=== PATIENT | male | born 1955 | race Caucasian/White ===

== ENCOUNTER → 2021-03-13 12:23 | Outpatient (BNVA) | payer MEDICARE, MEDICAID, SELFPAY | PROVIDERS: PCP Internal Medicine; Visit Provider Nurse Practitioner Gerontology | DX: E89.0 Postprocedural hypothyroidism (principal) | CPT/HCPCS: 99202 ==

== ENCOUNTER 2022-08-06 14:18 | Outpatient (REF) | payer MEDICARE, MEDICAID, SELFPAY ==
--- NOTE | ~2022-08-06 | US_ITS ---
EXAMINATION: US SCROTUM CLINICAL INFORMATION: Left testicular pain. COMPARISON: None TECHNIQUE: A sonogram of the scrotum was performed assessing callahan-scale appearance and color Doppler flow. Spectral Doppler analysis of the arterial and venous flow were performed in the testes bilaterally. FINDINGS: RIGHT: Right testicle measures 5.03 x 2.35 x 3.76 cm, volume 23.3 mL. No focal testicular parenchymal lesions are visualized. Spectral Doppler analysis of the arterial and venous flow is normal in the right testis. 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 In the right epididymal head there is a complex cyst measuring 0.52 x 0.42 x 0.46 cm. The epididymal head is otherwise unremarkable. There is a right small hydrocele and varicocele present. Right epididymal Doppler flow is normal. LEFT: Left testicle measures 5.80 x 2.30 x 3.59 cm, volume 25.1 mL. No focal testicular parenchymal lesions are visualized. Spectral Doppler analysis of the arterial and venous flow is normal in the left testis. There is mild ectasia of the Rete testes. Left epididymal head is normal in size. There is small left hydrocele and a varicocele. The varicocele appears more prominent bilateral right side. Left epididymal Doppler flow is normal. US/US scrotum IMPRESSION: Bilateral small hydroceles and varicoceles. Right epididymal head complex cyst. 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 Normal arterial Doppler flow seen to testes and epididymides.
== END 2022-08-06 14:19 | disposition home or self-care (01) ==
LOC: HO.HMGCX 14:18
PROVIDERS: PCP Internal Medicine; Visit Provider Internal Medicine
DX: N50.812 Left testicular pain (principal)
CPT/HCPCS: 76870

== ENCOUNTER → 2022-08-28 12:55 | Outpatient (BNVA) | payer MEDICARE, MEDICAID, SELFPAY | PROVIDERS: PCP Internal Medicine; Visit Provider Physician Assistant | DX: Z12.11 Encounter for screening for malignant neoplasm of colon (principal) | CPT/HCPCS: 99202 ==

== ENCOUNTER → 2022-12-11 14:55 | Outpatient (BNVA) | payer MEDICARE, MEDICAID, SELFPAY | PROVIDERS: PCP Internal Medicine; Visit Provider Nurse Practitioner Family | DX: I86.1 Scrotal varices (principal); N43.3 Hydrocele, unspecified; R35.0 Frequency of micturition | CPT/HCPCS: 99202 ==

== ENCOUNTER 2023-03-31 09:25 | Day surgery (SDC) | payer MEDICARE, MEDICAID, SELFPAY ==
--- NOTE | 2023-03-30 11:02 | P.CONAN_ITS ---
Documented by User: Sobia Tate NP 03/30/23 11:02 HPI - Anesthesia Eval Consult details Narrative: 68yo M for Colonoscopy PMFSH Active Problems Active Problems: All Active Problems (Updated 03/27/23 @ 13:02 by Shira Samaniego RN) Encounter for screening colonoscopy (Acute) Varicocele (Acute) Bilateral hydrocele (Acute) Urinary frequency (Acute) Postablative hypothyroidism (Acute) Past Medical History Medical History Anxiety and depression Back pain Chronic viral hepatitis C History of heroin abuse Postablative hypothyroidism Family History Family History Father No problems noted. Mother Emphysema lung Surgical History Surgical History Hx of Achilles tendon repair Hx of arthroscopy Hx of cervical spine surgery Hx of colonoscopy Hx of eye surgery Hx of hernia repair Hx of inguinal hernia surgery Hx of laparoscopy Social History Social History Household Members: None Alcohol intake: never Patient Tobacco Use Status: Never used Tobacco Use of substances other than those prescribed or required for medical reasons: No Substance Use Type: Heroin Are you DNR?: No Advance Directives: No Advance Directives Information Provided: Yes Current occupational status: retired [employer] Allergies Allergy/AdvReac Type Severity Reaction Status Date / Time No Known Allergies Allergy Verified 03/31/23 09:58 Home Medications Medication Instructions Recorded Confirmed Last Taken Type cholecalciferol (vitamin D3) 25 25 mcg PO DAILY 03/13/21 03/27/23 Unknown History mcg (1,000 unit) capsule levothyroxine 100 mcg tablet 100 mcg PO DAILY 03/13/21 03/27/23 Unknown History multivitamin 1 tab PO DAILY 03/13/21 03/27/23 Unknown History omega-3 fatty acids 500 mg capsule 500 mg PO DAILY 03/13/21 03/27/23 Unknown History vitamin B complex 1 tab PO DAILY 03/13/21 03/27/23 Unknown History blood pressure test kit-large #1 ea 08/28/22 Unknown History Exam Exam Date and Time: March 30, 2023 110 Assessment and Plan Assessment Anesthesia Assessment: Chart Reviewed Documented by User: Quinton Rodriguez MD 03/31/23 10:16 PMFSH Past Medical History Medical History Anxiety and depression Back pain Chronic viral hepatitis C History of heroin abuse Postablative hypothyroidism Family History Family History Father No problems noted. Mother Emphysema lung Family history of problems with anesthesia: No Surgical History Surgical History Hx of Achilles tendon repair Hx of arthroscopy Hx of cervical spine surgery Hx of colonoscopy Hx of eye surgery Hx of hernia repair Hx of inguinal hernia surgery Hx of laparoscopy History of Problems with Anesthesia: No Social History Social History Household Members: None Alcohol intake: never Patient Tobacco Use Status: Never used Tobacco Use of substances other than those prescribed or required for medical reasons: No Substance Use Type: Heroin Are you DNR?: No Advance Directives: No Advance Directives Information Provided: Yes Current occupational status: retired Meds Allergies Allergy/AdvReac Type Severity Reaction Status Date / Time No Known Allergies Allergy Verified 03/31/23 09:58 Home Medications Medication Instructions Recorded Confirmed Last Taken Type cholecalciferol (vitamin D3) 25 25 mcg PO DAILY 03/13/21 03/27/23 Unknown History mcg (1,000 unit) capsule levothyroxine 100 mcg tablet 100 mcg PO DAILY 03/13/21 03/27/23 Unknown History multivitamin 1 tab PO DAILY 03/13/21 03/27/23 Unknown History omega-3 fatty acids 500 mg capsule 500 mg PO DAILY 03/13/21 03/27/23 Unknown History vitamin B complex 1 tab PO DAILY 03/13/21 03/27/23 Unknown History blood pressure test kit-large #1 ea 08/28/22 Unknown History Exam Airway Mallampati Class: II TM Dist: >3cm Neck ROM: Full Denture: Upper Heart: [id number] Lungs: cta b/l Assessment and Plan Assessment Anesthesia Assessment: Anesthesia Plan Discussed Final Anesthetic Review Family History of Problems with Anesthesia: No History of Problems with Anesthesia: No NPO: Yes ASA Class: III Final Preanesthetic Review: No Changes in Pt Med Stat, Meds/Allgs Chart Reviewed, Consent Obtained/Reviewed and Anes Risks/Benef Reviewed Patient Risk: Intermediate Procedure Risk: Intermediate Assessment/Block/Sedation in SS: Assess/Block/Sedation-SS Anesthetic Plan Anesthetic Plan: MAC: and Agree w/ Assess. and Plan Disposition: Standard PACU
[2023-03-31 10:01] VITALS: BP 135/81; PULSE 63; RESP 16; TEMP 36.8; O2SAT 97; BMI 22.9
--- NOTE | 2023-03-31 10:09 | MHC.SHP ---
Pre-Procedural Eval Section A Date of Service: 03/31/23 Section B Chief Complaint: Encounter for screening for malignant neoplasm Relevant Family History (Specify if Yes): No Relevant Social History: None Present Medications: see Short Stay Collaborative assessment Medical History: Significant History (Anxiety and depression Back pain Chronic viral hepatitis C History of heroin abuse Postablative hypothyroidism) History of Previous Operations: Relevant previous surgery/procedure and date(s) (Hx of Achilles tendon repair Hx of arthroscopy Hx of cervical spine surgery Hx of colonoscopy Hx of eye surgery Hx of hernia repair Hx of inguinal hernia surgery Hx of laparoscopy) Allergies: Allergies Allergy/AdvReac Type Severity Reaction Status Date / Time No Known Allergies Allergy Verified 03/31/23 09:58 Review of Systems Sugical H&P ROS: Negative: Constitution, Cardiovascular, Respiratory, Neurological, Psychiatric, Hem-Onc, Allergic/Immunologic, Gastrointestinal, Genitourinary, Musculoskeletal, Integumentary, Endocrine and Eyes/Ears/Nose/Throat Exam Surgical H&P Exam: Normal: HEENT, Normal: Heart, Normal: Lungs, Normal: Extremities, Normal: Abdomen, Normal: Skin and Normal: Neurological Plan Diagnosis/Plan: Unchanged I have reviewed the history and physical and performed a pertinent physical examination on my patient. No changes have occurred unless specified. Time Spent With Patient Time: Total time managing care of this patient today ____ minutes.
[2023-03-31] MEDS: Lactated Ringers 1,000 ML 100 ML IVCONT (10:17)
--- NOTE | 2023-03-31 10:46 | W.PM.OPN ---
Operative Note Operative Note Date of Service: 03/31/23 Narrative: Operative Information Procedure Description: Colonoscopy Indication: screening Anesthesia: MAC COLONOSCOPY Instrument: Olympus variable stiffness pediatric scope 190L Colonoscopy Monitoring: Vital signs and clinical assessment, continuous EKG monitoring, Pulse oximetry, Carbon Dioxide monitoring and blood pressure monitoring were done throughout the procedure. Colon withdrawal time was 7 minutes. Procedure: The patient was placed in the left lateral decubitis position and pre-procedure medications were administered. After a digital rectal examination of the ano-rectum, the video colonoscope was inserted into the rectum and advanced through the colon to the cecum/TI. The colonoscope was slowly withdrawn in a retrograde panoramic fashion and the colon mucosa was carefully examined including a retroflexed view of the rectum. Findings and interventions are described below. Procedure Difficulty: moderate due to trotuous colon--pressure applied Findings: Terminal Ileum-normal Cecum:normal Ascending Colon: normal Transverse Colon -normal Descending Colon:normal Sigmoid Colon: normal Rectum: Retroflexion with medium sized internal hemorrhoids, grade I Anorectum - normal Colon preparation: Perris Bowel Preparation Scale Right colon; 1-2 Transverse colon: 1-2 Left colon; 1 (0 = Unprepared colon segment with mucosa not seen due to solid stool that cannot be cleared. 1 = Portion of mucosa of the colon segment seen, but other areas of the colon segment not well seen due to staining, residual stool and/or opaque liquid. 2 = Minor amount of residual staining, small fragments of stool and/or opaque liquid, but mucosa of colon segment seen well. 3 = Entire mucosa of colon segment seen well with no residual staining, small fragments of stool or opaque liquid) Impression and Post Procedure Diagnosis: fair to poor prep internal hemorrhoids Plan: High fiber diet leaflet Avoid straining at stool, epsom salts and sitz bath, anusol supps or cream Repeat Colonoscopy in 12 months or earlier if clinically indicated, review prep with him again Above findings were reviewed with the patient and relevant handouts were provided if indicated.
[2023-03-31 10:52] VITALS: BP 88/47; PULSE 54; RESP 16; TEMP 36.1; O2SAT 96
[2023-03-31 11:07] VITALS: BP 108/68; PULSE 59; RESP 16; TEMP 36.6; O2SAT 97
== END 2023-03-31 11:50 | disposition home or self-care (01) ==
PROVIDERS: PCP Internal Medicine; Visit Provider Internal Medicine Gastroenterology
PROC: 0DJD8ZZ Inspection of Lower Intestinal Tract, Via Natural or Artificial Opening Endoscopic (ICD-10-PCS; CPT 45378; principal; 2023-03-31 11:00)
DX: Z12.11 Encounter for screening for malignant neoplasm of colon (principal); E89.0 Postprocedural hypothyroidism; B18.2 Chronic viral hepatitis C; Z79.899 Other long term (current) drug therapy; Z98.890 Other specified postprocedural states; F11.11 Opioid abuse, in remission
CPT/HCPCS: G0121

== ENCOUNTER 2023-09-04 09:52 | Outpatient (REF) | payer MEDICARE, MEDICAID, SELFPAY ==
[2023-09-04 11:15] LABS: MANUAL DIFF FLAG NO
[2023-09-04 11:34] LABS: Basophils Percent Auto 0.4 % (0-2); Hematocrit 42.8 % (42.0-52.0); Hemoglobin 14.2 g/dl (14.0-18.0); Imm Gran Abs Auto 0.08 X10*3/uL (0.00-0.03); Imm Gran Pct Auto 1.5 % (0.0-0.4); Lymphocytes Absolute Auto 2.1 X10*3/uL (1.2-4.9); Lymphocytes Percent Auto 38.3 % (20-40); Mean Corpuscular HGB Conc 33.2 g/dl (31.0-36.0); Mean Corpuscular Hemoglobin 29.3 pg (27.0-33.0); Mean Corpuscular Volume 88.2 fL (80.0-98.0); Mean Platelet Volume 9.5 fL (9.4-12.4); Monocytes Absolute Auto 0.5 X10*3/uL (0.1-1.2); Monocytes Percent Auto 9.7 % (2-11); Neutrophils Absolute Auto 2.8 x10*3/uL (2.0-8.3); Neutrophils Percent Auto 50.1 % (45-73); Platelet Count 277 X10*3/uL (160-400); Red Blood Count 4.85 X10*6/uL (4.60-5.80); Red Cell Distribution Width 13.3 % (11.0-16.0); White Blood Count 5.5 X10*3/uL (4.8-10.8)
[2023-09-04 12:16] LABS: Alanine Aminotransferase 26 U/L (0-40); Albumin Level 4.5 g/dL (3.5-5.0); Alkaline Phosphatase 62 U/L (39-117); Anion Gap 11 (12-20); Aspartate Amino Transferase 31 U/L (5-37); Bilirubin Direct 0.2 mg/dL (0.0-0.5); Bilirubin Total 0.6 mg/dL (0.0-1.0); Blood Urea Nitrogen 14 mg/dL (9-16); Calcium 9.7 mg/dL (8.4-10.2); Carbon Dioxide 29 mmol/L (22-29); Chloride 108 mmol/L (96-108); Cholesterol 199 mg/dL (<200); Estimated Glomerular Filt Rate > 60; Glucose Random 101 mg/dL (60-115); HDL Cholesterol 54 mg/dL (>40); LDL Cholesterol Calculated 127 mg/dL (<100); Potassium 5.1 mmol/L (3.3-5.1); Sodium 143 mmol/L (135-145); Total Protein 7.2 g/dL (6.5-8.0); Triglycerides 93 mg/dL (<150)
[2023-09-04 12:51] LABS: Vitamin D 25-OH Total 62.1 ng/mL (>30)
[2023-09-07 11:43] LABS: Free Prostate Spec Ag 0.4 ng/mL; Percent Free Prostate Spec Ag 22 % (calc) (>25); Prostate Specific Ag Total 1.8 ng/mL (< OR = 4.0)
== END 2023-09-04 09:53 | disposition home or self-care (01) ==
LOC: HO.HHCL 09:52
PROVIDERS: Visit Provider Internal Medicine
DX: Z00.00 Encounter for general adult medical examination without abnormal findings (principal); R35.0 Frequency of micturition; E78.5 Hyperlipidemia, unspecified
CPT/HCPCS: 36415; 80048; 80061; 80076; 82306; 84154; 85025

== ENCOUNTER 2023-10-14 13:38 | Outpatient (AMB) | payer MEDICARE, MEDICAID, SELFPAY ==
--- NOTE | 2023-10-14 13:41 | A.OFFVIS_ITS ---
Intake Intake Visit Reasons: Elevated PSA Intake Note: Patient present for bilateral varicoceles/elevated psa (psa 1.8) Urology Medications: none Blood Thinners: none Garment Form Assembler Required: No Accompanied by: Self / Same As Patient Allergies No Known Allergies Allergy (Verified 10/15/23 13:38) Medication List - Last Reconciled 10/15/23 by GLORIA No blood pressure test kit-large As directed cholecalciferol (vitamin D3) 25 mcg PO DAILY levothyroxine 100 mcg PO DAILY multivitamin 1 tab PO DAILY omega-3 fatty acids 500 mg PO DAILY pravastatin 20 mg PO DAILY vitamin B complex 1 tab PO DAILY HPI HPI Comments History of Present Illness Details Michael Dasilva is a pleasant 67-year-old male patient of Dr. Silvestre Talamantes. He has a past medical history of back pain, anxiety, depression, chronic hep C, history of heroin abuse in remission, and hypothyroidism. He presents to the office today for elevated % free PSA. Of note, patient was seen approximately 10 months ago for bilateral varicoceles at which time recommendations were made for p.r.n. follow-up. However, patient reports having had PSA drawn with PCP and noted to have an elevated % free PSA. Labs are as follows: 03/13--PSA 1.3 03/13--testosterone 678 09/17--PSA 1.8 % free PSA 22% Discussed at length potential causes for % free PSA elevation. Discussed obtaining retroperitoneal ultrasound for further assessment evaluation versus surveillance monitoring. When asked he denies any bothersome urinary issues or concerns. He denies urinary urgency, urinary frequency, incontinence, nocturia, hematuria, dysuria, foul smelling urine, changes to urinary stream, flank pain, fever, and or chills. He is happy with his current voiding parameters. SALLY offered however deferred. [facility] Medical History Back pain Anxiety and depression Chronic viral hepatitis C History of heroin abuse Postablative hypothyroidism Surgical History Hx of hernia repair Hx of colonoscopy Hx of laparoscopy Hx of eye surgery Hx of Achilles tendon repair Hx of cervical spine surgery Hx of arthroscopy Hx of inguinal hernia surgery Family History Father No problems noted. Mother Emphysema lung Social History Household Members: None Alcohol intake: never Patient Tobacco Use Status: Never used Tobacco Substance Use Type: Heroin Current occupational status: retired Review of Systems Const All systems reviewed & are unremarkable except as noted in HPI and below Reports as per HPI Eyes Reports no additional complaints ENT Reports no additional complaints Card Reports no additional complaints Resp Reports no additional complaints GI Reports as per HPI Reports as per HPI Musc Denies no additional complaints Neuro Reports no additional complaints Psych Reports as per HPI Endo Reports as per HPI Ramesh/Lymph Reports no additional complaints Aller/Immun Reports no additional complaints Physical Exam Const General: cooperative, healthy appearing, comfortable, no acute distress, well developed, alert and awake Nutritional Appearance: average body habitus Orientation/consciousness: patient oriented x3 Limitations: no limitations HEENT Head: Yes normal to inspection, Yes normocephalic and Yes atraumatic Ears: hearing grossly normal bilaterally Eyes General: appearance normal, both eyes and all related structures Neck Neck: Yes normal visual inspection and Yes trachea midline Chest Chest palpation & inspection: normal inspection of the chest Resp Effort & Inspection: normal respiratory effort and able to speak in complete sentences Cardio Rate: regular rate GI Inspection: Yes normal to inspection General: Yes no CVA tenderness Back/Spine/Pelvis Back: no CVA tenderness Skin General skin exam: no rashes or lesions noted Neuro General: patient oriented x3 Extrem General: Yes normal to inspection Psych Appearance: grossly normal and well kempt Mental Status: mental status grossly normal Speech and movement: Normal speech and movement present and Clear speech present Affect: normal affect Attitude: cooperative Thought process: Normal thought process present Thought content: Normal thought content present Insight: Fair insight present (Psych) Judgement: Fair judgement present (Psych) Results AMB Urinalysis, Automated UA Leukoctes 0 Soco/uL Last Edit by Stacia Bravo on 10/14/23 14:13 UA Nitrite Negative Last Edit by Stacai Bravo on 10/14/23 14:13 UA Urobilinogen 0.2 mg/dL Last Edit by Stacia Bravo on 10/14/23 14:13 UA Protein 0 mg/dL Last Edit by Stacia Bravo on 10/14/23 14:13 UA pH 6.0 Last Edit by Stacia Bravo on 10/14/23 14:13 UA Blood 10 Dereje/uL Last Edit by Stacia Hatchprem on 10/14/23 14:13 UA Specific Stella 1.015 Last Edit by Noehermanvahe Hatchprem on 10/14/23 14:13 UA Ketone Negative Last Edit by Noehermanvahe Hatchprem on 10/14/23 14:13 UA Bilirubin 0 mg/dL Last Edit by Stacia Hatchprem on 10/14/23 14:13 UA Glucose 0 mg/dL Last Edit by Stacia Mamieprem on 10/14/23 14:13 Results Reviewed Results Reviewed: Laboratory Last Values Urine pH (Auto) 6.0 10/14/23 13:46 Specific Stella (Auto) 1.015 10/14/23 13:46 Urine Protein (Auto) 0 mg/dL 10/14/23 13:46 Glucose (UA)(Auto) 0 mg/dL 10/14/23 13:46 Urine Ketones (Auto) Negative 10/14/23 13:46 Urine Blood (Auto) 10 Dereje/uL 10/14/23 13:46 Urine Nitrite (Auto) Negative 10/14/23 13:46 Urine Bilirubin (Auto) 0 mg/dL 10/14/23 13:46 Urine Urobilinogen (Auto) 0.2 mg/dL 10/14/23 13:46 Leukocyte Esterase (Auto) 0 Soco/uL 10/14/23 13:46 Assessment & Plan Assessment & Plan (1) Elevated PSA: Code(s): R97.20 - Elevated prostate specific antigen [PSA] Plan In office urinalysis results reviewed with the patient today; as noted above. PSA results reviewed with the patient today; as noted above. Patient denies any bothersome urinary issues or concerns at this time. Discussed at length potential causes for elevated % free PSA. Will obtain retroperitoneal ultrasound for further assessment evaluation. Follow-up in 1 month with imaging to be completed prior; or sooner with any issues, concerns, and or questions. Orders: Orders AMB Urinalysis Automated 10/14/23 Z13.9 - Encounter for screening, unspecified US retroperitoneal comp 10/14/23 R35.0 - Frequency of micturition Patient Instructions: The patient had an opportunity to ask questions regarding the treatment plan. All questions were answered. Physical exam, labs, and imaging were discussed and reviewed in detail. As well as risks, benefits, and discussion of treatment choices. No major barriers to understanding were identified. The patient expressed understanding and agreement with the above treatment plan. The patient was made aware they should contact our office by phone for worsening of their current condition, the appearance of new symptoms, or with any questions or concerns. Compliance is encouraged with any medications and follow up testing that is ordered. It is a privilege to be allowed the opportunity to participate in? your urological care.? Again, if you have any questions or concerns If you have any questions or concerns please do not hesitate to contact me. The office is [phone]. This note is constructed using voice recognition software. While every effort has been made to ensure accuracy towel distributor errors may have been included. Yours sincerely, GLORIA No Coding Level of Care Code Est Pt Level 3 (79427) Diagnoses Elevated PSA R97.20
== END 2023-10-14 14:35 | disposition home or self-care (01) ==
PROVIDERS: PCP Internal Medicine; Visit Provider Nurse Practitioner Family
DX: R97.20 Elevated prostate specific antigen [PSA] (principal)
CPT/HCPCS: 99213

== ENCOUNTER → 2023-10-14 13:40 | Outpatient (BNVA) | payer MEDICARE, MEDICAID, SELFPAY | PROVIDERS: PCP Internal Medicine; Visit Provider Nurse Practitioner Family | DX: R97.20 Elevated prostate specific antigen [PSA] (principal) | CPT/HCPCS: 81003; 99212 ==

== ENCOUNTER 2023-10-25 11:33 | Emergency (ER) | payer MEDICARE, MEDICAID, SELFPAY ==
--- NOTE | ~2023-10-25 | CT_ITS ---
EXAMINATION: CT head/brain wo IV con CLINICAL INFORMATION: Reason for Exam syncope/fall last night COMPARISON: None. TECHNIQUE: Contiguous axial imaging was performed from the skull base to vertex without intravenous contrast. Sagittal and coronal reformatted images were obtained. This CT examination was performed using dose optimization techniques as appropriate, variously including the following: * Automated exposure control * Adjustment of mA and/or kV according to patient size (this includes techniques or standardized protocols for targeted exams where dose is matched to indication/reason for exam; i.e. extremities or head) Use of iterative reconstruction technique DLP: 652 mGy-cm FINDINGS: No acute osseous or soft tissue abnormality. Chronic appearing left lamina papyracea fracture deformity. The mastoid air cells and visualized portions of the paranasal sinuses are well aerated. There is no evidence of acute intracranial hemorrhage or territorial infarction. No abnormal mass effect or midline shift is seen. Kwan to white matter differentiation is well preserved. No extra-axial fluid collections are identified. No hydrocephalus. Proportional prominence of the ventricles and sulcal spaces is consistent with mild volume loss. Patchy periventricular and deep white matter hypoattenuation is consistent with mild small vessel ischemic changes. CT/CT head/brain wo IV con IMPRESSION: No acute intracranial abnormality including hemorrhage, mass effect, hydrocephalus, or acute territorial edematous infarction.
--- NOTE | ~2023-10-25 | XR_ITS ---
EXAMINATION: XR FOOT, RIGHT CLINICAL INFORMATION: Status post fall. Syncope last night. COMPARISON: Report of right foot x-rays of 10/19/2014. Images are not available for comparison at this time. TECHNIQUE: AP, lateral, and oblique views of the right foot. FINDINGS: There is diffuse osteopenia. No focal erosion noted. No evidence of acute fracture or dislocation. Vascular calcifications are seen. No evidence of radiopaque foreign body or soft tissue air. No significant degenerative or arthritic changes are noted in the right foot. XR/XR foot RT min 3V IMPRESSION: No evidence of acute fracture or dislocation in the right foot.
[2023-10-25 11:48] VITALS: BP 136/70; PULSE 60; RESP 18; TEMP 36.2; O2SAT 99; BMI 22.4
--- NOTE | 2023-10-25 11:49 | ED.GENADULT ---
HPI - General Adult General Chief complaint: Syncope Stated complaint: R foot injury Time Seen by Provider: 10/25/23 20:13 Source: patient Mode of arrival: ambulatory Limitations: no limitations History of Present Illness HPI narrative: Patient is a 68 year old assigned male at with a history of hypotension, anxiety, and chronic hep C presenting to the emergency department today with right foot pain and an episode of syncope. Patient states that he was going to the bathroom, got up too quickly, and passed out, twisting his right foot. Patient denies any head strike. Patient denies any dizziness, lightheadedness, abdominal pain, nausea, vomiting, fever, chills, blurry vision, double vision, loss of vision, chest pain, difficulty breathing, shortness of breath, back pain, night sweats, pain with urination, increased urinary frequency, increased urinary urgency, blood in his urine or stool, bowel incontinence, bladder incontinence, bowel retention, bladder retention, or any other complaints at this time. Onset (ago): minute(s) Location: right and lower extremity Radiation: non-radiation Severity: mild Severity scale (1-10): 3 Quality: aching and dull Pain Consistency: constant Relieving factors: none Exacerbating factors: none Associated symptoms: syncope Treatments prior to arrival: none Related Data Home Medications Medication Instructions Recorded Confirmed cholecalciferol (vitamin D3) 25 25 mcg PO DAILY 03/13/21 10/15/23 mcg (1,000 unit) capsule levothyroxine 100 mcg tablet 100 mcg PO DAILY 03/13/21 10/15/23 multivitamin 1 tab PO DAILY 03/13/21 10/15/23 omega-3 fatty acids 500 mg capsule 500 mg PO DAILY 03/13/21 10/15/23 vitamin B complex 1 tab PO DAILY 03/13/21 10/15/23 blood pressure test kit-large #1 ea 08/28/22 10/15/23 pravastatin 20 mg tablet 20 mg PO DAILY 10/14/23 10/15/23 Allergies Allergy/AdvReac Type Severity Reaction Status Date / Time No Known Allergies Allergy Verified 10/25/23 11:48 Review of Systems Constitutional: Constitutional: Reports no additional constitutional complaints, Denies chills, Denies fever(s) and Denies night sweats Eyes: Eyes: Reports no additional eye complaints, Denies blurry vision, Denies change in vision, Denies diplopia, Denies eye discharge, Denies loss of vision and Denies eye pain ENT: Denies dizziness Cardiovascular: Cardiovascular: Reports no additional cardiovascular complaints, Denies chest pain, Reports syncope, Denies lightheadedness, Denies Loss of Consciousness and Denies dyspnea Respiratory: Respiratory: Reports no additional respiratory complaints and Denies dyspnea Gastrointestinal: Gastrointestinal: Reports no additional gastrointestinal complaints, Denies abdominal pain, Denies melena, Denies hematochezia, Denies change in bowel habits and Denies change in stool character Genitourinary: Genitourinary: Reports no additional male genitourinary complaints, Denies hematuria, Denies oliguria, Denies difficulty urinating, Denies dysuria, Denies urinary frequency, Denies urinary hesitancy, Denies urinary incontinence and Denies urinary urgency Musculoskeletal: Musculoskeletal: Reports no additional musculoskeletal complaints, Denies numbness and Denies tingling Comments: right foot pain Neurologic: Denies dizziness, Reports syncope, Denies loss of vision, Denies numbness and Denies tingling Psychiatric: Psychiatric: Reports no additional psychiatric complaints Endocrine: Endocrine: Reports no additional endocrine complaints Hematologic/Lymphatic: Hematologic/Lymphatic: Reports no additional hematologic/lymphatic complaints Allergic/Immunologic: Allergic/Immunologic: Reports no additional allergic/immunologic complaints [facility] Past Medical History Attestation statement: The following information was validated with the patient. Source: old records reviewed and nursing notes reviewed Medical History Urinary frequency Bilateral hydrocele Encounter for screening colonoscopy Back pain Anxiety and depression Chronic viral hepatitis C History of heroin abuse Postablative hypothyroidism Surgical History Hx of hernia repair Hx of colonoscopy Hx of laparoscopy Hx of eye surgery Hx of Achilles tendon repair Hx of cervical spine surgery Hx of arthroscopy Hx of inguinal hernia surgery Family History Family History Father No problems noted. Mother Emphysema lung Social History Social History Household Members: None Alcohol intake: never Patient Tobacco Use Status: Never used Tobacco Substance Use Type: Heroin Advance Directives: No Advance Directives Information Provided: Yes Current occupational status: retired Physical Exam ED Vital Signs: Vital Signs - 24 hr 10/25/23 11:48 10/25/23 20:01 10/25/23 20:56 Temperature 97.2 F Pulse Rate 60 63 Respiratory Rate 18 14 Blood Pressure 136/70 151/76 H Pulse Oximetry 99 100 98 Oxygen Delivery Method Room Air Room Air Room Air 10/25/23 20:56 Temperature Pulse Rate 63 Respiratory Rate 15 Blood Pressure 112/69 Pulse Oximetry 98 Oxygen Delivery Method Room Air BMI result Body Mass Index 22.4 Const General: cooperative, no acute distress, alert and awake Nutritional Appearance: well nourished Orientation/consciousness: patient oriented x3 Limitations: no limitations HENMT Head: Yes normal to inspection and Yes atraumatic Ears: hearing grossly normal bilaterally and external ears normal General nose exam: Normal external nose present, no nasal discharge noted and no epistaxis Face and sinus: Yes normal facial exam, No abrasion and No laceration Mouth: Normal oral and palatal mucosa present, no drooling and no muffled voice Eyes General: appearance normal, both eyes and all related structures Periorbital: periorbital findings normal Eyelids: Yes eyelids normal Conjunctivae: conjunctivae normal Pupils: Equal, round and reactive pupils present EOM: EOMs intact bilaterally Neck Neck: Yes normal visual inspection, Yes full ROM and Yes no lymphadenopathy Chest Chest palpation & inspection: normal inspection of the chest Resp Effort & Inspection: normal respiratory effort and able to speak in complete sentences GI Inspection: Yes normal to inspection Neuro General: patient oriented x3 and moves all extremities Cranial nerves: Yes Equal, round and reactive pupils present Cognition (Neuro): normal cognition Motor exam (neuro): 5/5 motor strength present throughout Sensory Exam: Normal double simultaneous stimulation for sensation Coordination: [id number] test normal Extrem General: Yes normal to inspection, Yes full ROM and Yes capillary refill normal Psych Appearance: grossly normal Mental Status: mental status grossly normal Affect: normal affect Attitude: cooperative Thought process: Normal thought process present Thought content: Normal thought content present Insight: Good insight present (Psych) Course Course Course Narrative: This is a rapid medical exam: Additional HPI, ROS, PE not included below will be deferred to primary provider. Patient is a 68-year-old male presenting to the ED with complaint of right foot pain after syncopal episode last night. States he was getting up to go to the bathroom in the middle of the night and was trying not to wake up all the way. Fall was unwitnessed, patient lives alone. He reports history of orthostatic hypotension but states he has never had a syncopal episode related to this before. Does not feel he hit head but floor is tile. He is not anticoagulated. Plan: EKG, labs, x-ray, CT Medical Decision Making Medical Decision Making [facility] Narrative: Patient is a 68 year old assigned male at with a history of anxiety, hep C, and hypotension presenting to the emergency department today with right foot pain after a syncopal episode. Patient's physical exam was unremarkable. Patient's blood work was unremarkable. Patient's EKG was unremarkable. Patient's right foot x-ray and head CT showed no acute process. I explained my physical exam findings as well as all test results to the patient. I answered all questions asked by the patient. I stressed the importance of the patient taking his medication as prescribed. I stressed the importance of the patient following up with his primary care provider. I stressed the importance of the patient returning to the emergency department immediately if his symptoms were to worsen or if he were to develop any dizziness, shortness of breath, difficulty breathing, chest pain, blurry vision, loss of vision, nausea, vomiting, abdominal pain, fever, chills, back pain, or any other complaints. Patient verbalized agreement and understanding with this treatment plan and discharge. Differential Diagnosis Differential Diagnoses: The differential diagnosis associated with the presentation includes Syncope Right foot pain Fall Admission/Observation Consideration of admission/observation: Escalation of care including admission/observation considered Patient would have been admitted to the hospital had his work up had any findings where hospital admission was appropriate and his clinical presentation warranted hospital admission. Lab Data [facility] Lab Attestation statement: I reviewed the patient's lab results. My interpretation of these studies and their corresponding values is that they are grossly normal. 10/25/23 12:07 10/25/23 12:07 Labs: Lab Results 10/25/23 Range/Units 12:07 WBC 11.2 H (4.8-10.8) X10*3/uL RBC 4.70 (4.60-5.80) X10*6/uL Hgb 13.7 L (14.0-18.0) g/dl Hct 40.0 L (42.0-52.0) % MCV 85.1 (80.0-98.0) fL MCH 29.1 (27.0-33.0) pg MCHC 34.3 (31.0-36.0) g/dl RDW 13.6 (11.0-16.0) % Plt Count 234 (160-400) X10*3/uL MPV 9.0 L (9.4-12.4) fL Immature Gran % (Auto) 0.5 H (0.0-0.4) % Neut % (Auto) 79.8 H (45-73) % Lymph % (Auto) 12.4 L (20-40) % Mcpherson % (Auto) 7.2 (2-11) % Eos % (Auto) 0.0 (0-4) % Baso % (Auto) 0.1 (0-2) % Lymph # (Auto) 1.4 (1.2-4.9) X10*3/uL Mcpherson # (Auto) 0.8 (0.1-1.2) X10*3/uL Eos # (Auto) 0.0 (0.0-0.4) X10*3/uL Baso # (Auto) 0.0 (0.0-0.2) X10*3/uL Abs Immat Gran (auto) 0.06 H (0.00-0.03) X10*3/uL Absolute Neuts (auto) 8.9 H (2.0-8.3) x10*3/uL Absolute Nucleated RBC 0.000 (0.0-0.012) X10*3/uL Nucleated RBC % (auto) 0.0 (0.0-0.2) /100WBC Sodium 138 (135-145) mmol/L Potassium 4.3 (3.3-5.1) mmol/L Chloride 104 (96-108) mmol/L Carbon Dioxide 26 (22-29) mmol/L Anion Gap 12 (12-20) BUN 18 H (9-16) mg/dL Creatinine 0.94 (0.5-1.4) mg/dL Estim Creat Clear Calc 67.0 Estimated GFR > 60 Random Glucose 134 H (60-115) mg/dL Calcium 9.7 (8.4-10.2) mg/dL Troponin I High Sens 2.7 (<3.5-35.0) ng/L Independent Interpretation I performed an independent interpretation of an: EKG, Plain X-Ray and CT Scan Interpretation: My interpretation is in agreement with the radiologist's impression of these imaging studies. EXAMINATION: CT head/brain wo IV con CLINICAL INFORMATION: Reason for Exam syncope/fall last night COMPARISON: None. TECHNIQUE: Contiguous axial imaging was performed from the skull base to vertex without intravenous contrast. Sagittal and coronal reformatted images were obtained. This CT examination was performed using dose optimization techniques as appropriate, variously including the following: * Automated exposure control * Adjustment of mA and/or kV according to patient size (this includes techniques or standardized protocols for targeted exams where dose is matched to indication/reason for exam; i.e. extremities or head) Use of iterative reconstruction technique DLP: 652 mGy-cm FINDINGS: No acute osseous or soft tissue abnormality. Chronic appearing left lamina papyracea fracture deformity. The mastoid air cells and visualized portions of the paranasal sinuses are well aerated. There is no evidence of acute intracranial hemorrhage or territorial infarction. No abnormal mass effect or midline shift is seen. Kwan to white matter differentiation is well preserved. No extra-axial fluid collections are identified. No hydrocephalus. Proportional prominence of the ventricles and sulcal spaces is consistent with mild volume loss. Patchy periventricular and deep white matter hypoattenuation is consistent with mild small vessel ischemic changes. CT/CT head/brain wo IV con IMPRESSION: No acute intracranial abnormality including hemorrhage, mass effect, hydrocephalus, or acute territorial edematous infarction. Dictated By: Jason Umaña Signed By: Electronically signed by Jason Umaña 10/25/23 2882 EXAMINATION: XR FOOT, RIGHT CLINICAL INFORMATION: Status post fall. Syncope last night. COMPARISON: Report of right foot x-rays of 10/19/2014. Images are not available for comparison at this time. TECHNIQUE: AP, lateral, and oblique views of the right foot. FINDINGS: There is diffuse osteopenia. No focal erosion noted. No evidence of acute fracture or dislocation. Vascular calcifications are seen. No evidence of radiopaque foreign body or soft tissue air. No significant degenerative or arthritic changes are noted in the right foot. XR/XR foot RT min 3V IMPRESSION: No evidence of acute fracture or dislocation in the right foot. Dictated By: Miryam Chávez MD Signed By: Electronically signed by Miryam Chávez MD 10/25/23 1426 Vent. 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 Discharge Plan Discharge Clinical Impression: Acute foot pain, Orthostatic hypotension Patient Disposition: Home, Self-Care Instructions: Syncope (DC) Additional Instructions: Drink plenty of fluids. Follow up with your primary care provider. Return to the emergency department immediately if your symptoms worsen or if you develop any dizziness, shortness of breath, difficulty breathing, chest pain, blurry vision, loss of vision, nausea, vomiting, abdominal pain, fever, chills, back pain, or any other complaints. Prescriptions: No Action levothyroxine 100 mcg tablet 100 mcg PO DAILY cholecalciferol (vitamin D3) 25 mcg (1,000 unit) capsule 25 mcg PO DAILY multivitamin Tablet 1 tab PO DAILY vitamin B complex Tablet 1 tab PO DAILY omega-3 fatty acids 500 mg capsule 500 mg PO DAILY (DME) blood pressure test kit-large Kit See Rx Instructions .ROUTE DAILY Qty: 1 Rx Instructions: As directed pravastatin 20 mg tablet 20 mg PO DAILY Referrals: Hilda Hill MD [Primary Care Provider] - Interventions: ED Discharge Assessment Last Done: 10/25/23 20:59 Discharge Date/Time: 10/25/23 21:00 Print Language: Greenlandic
--- NOTE | 2023-10-25 11:52 | ECG_ITS ---
Test Reason : SYNCOPE Blood Pressure : / mmHG Vent. 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) Abnormal ECG When compared with ECG of 13-JAN-2012 15:21, No significant change was found Referred By: La Nena Norris Electronically Signed By:NAVI JEREZ
[2023-10-25 12:14] LABS: MANUAL DIFF FLAG NO
[2023-10-25 12:15] LABS: Basophils Percent Auto 0.1 % (0-2); Hemoglobin 13.7 g/dl (14.0-18.0); Imm Gran Abs Auto 0.06 X10*3/uL (0.00-0.03); Imm Gran Pct Auto 0.5 % (0.0-0.4); Lymphocytes Absolute Auto 1.4 X10*3/uL (1.2-4.9); Lymphocytes Percent Auto 12.4 % (20-40); Mean Corpuscular HGB Conc 34.3 g/dl (31.0-36.0); Mean Corpuscular Hemoglobin 29.1 pg (27.0-33.0); Mean Corpuscular Volume 85.1 fL (80.0-98.0); Monocytes Absolute Auto 0.8 X10*3/uL (0.1-1.2); Monocytes Percent Auto 7.2 % (2-11); Neutrophils Absolute Auto 8.9 x10*3/uL (2.0-8.3); Neutrophils Percent Auto 79.8 % (45-73); Platelet Count 234 X10*3/uL (160-400); Red Cell Distribution Width 13.6 % (11.0-16.0); White Blood Count 11.2 X10*3/uL (4.8-10.8)
[2023-10-25 12:27] LABS: Anion Gap 12 (12-20); Blood Urea Nitrogen 18 mg/dL (9-16); Calcium 9.7 mg/dL (8.4-10.2); Carbon Dioxide 26 mmol/L (22-29); Chloride 104 mmol/L (96-108); Estimated Glomerular Filt Rate > 60; Glucose Random 134 mg/dL (60-115); Potassium 4.3 mmol/L (3.3-5.1); Sodium 138 mmol/L (135-145)
[2023-10-25 12:35] LABS: Troponin-I High Sensitivity 2.7 ng/L (<3.5-35.0)
--- OUTSIDE RECORDS SUMMARY | 2023-10-25 19:36 | XMS_ITS | Patient Health Record ---
Author Name Unknown Organization [facility] Address [address] [place] [address] Care Team Providers Care Compliance Auditor Name Role Phone Hilda Rivers M.D. Primary Care Provider Yoseph Neil Jr REASON FOR REFERRAL No Information SOCIAL HISTORY Sex Assigned At : Social History Observation Description Sex Assigned At Unknown PLAN OF TREATMENT Next Appt Details Provider Name:Yoseph wyatt Jr, 12/10/2023 02:55:00 PM, [address], [address], [place], [address], Insurance Providers Payer Name Payer Address Payer Phone Subscriber Number Group Number Insured Name Patient Relationship to Insured Coverage Start Date Coverage End Date MEDICARE OF [place] [address] [place] [id number] GOLDIE BAKER Self - patient is the insured MEDICAID OF [facility] [address] [place] [address] [id number] GOLDIE BAKER Self - patient is the insured
[2023-10-25 20:01] VITALS: BP 151/76; PULSE 63; RESP 14; O2SAT 100
[2023-10-25 20:56] VITALS: BP 112/69; PULSE 63; RESP 15; O2SAT 98
== END 2023-10-25 21:00 | disposition home or self-care (01) ==
PROVIDERS: Registered Nurse Emergency; Emergency Provider Emergency Medicine; PCP Internal Medicine
DX: I95.1 Orthostatic hypotension (principal); M79.671 Pain in right foot
CPT/HCPCS: 36415; 70450; 73630; 80048; 84484; 85025; 93005; 99284

== ENCOUNTER → 2023-10-25 11:52 | Outpatient (BNV) | payer MEDICARE, MEDICAID, SELFPAY | PROVIDERS: Emergency Provider Emergency Medicine; PCP Internal Medicine; Visit Provider Internal Medicine | DX: R94.31 Abnormal electrocardiogram [ECG] [EKG] (principal) | CPT/HCPCS: 93010 ==

== ENCOUNTER 2023-10-27 09:52 | Emergency (ER) | payer MEDICARE, MEDICAID, SELFPAY ==
--- NOTE | ~2023-10-27 | US_ITS ---
EXAMINATION: US VENOUS ULTRASOUND WITH DOPPLER LOWER EXTREMITY, LEFT CLINICAL INFORMATION: Left leg pain, swelling COMPARISON: None available. TECHNIQUE: Ultrasound of the deep veins is performed from the hip to the calf with compression sonography and color and pulse Doppler assessment. Spectral analysis with color-flow imaging is performed. FINDINGS: There is normal venous compression and respiratory variation. The visualized common femoral vein, superficial femoral vein, profunda femoral vein, popliteal vein, and the posterior tibial and peroneal veins show no evidence of deep venous thrombosis. Large effusion seen in the left anterior knee. US/US venous duplex LE IMPRESSION: 1. No DVT demonstrated in the left lower extremity. 2. Large effusion seen in the left anterior knee.
--- NOTE | ~2023-10-27 | XR_ITS ---
EXAMINATION: XR KNEE, LEFT CLINICAL INFORMATION: Pain and swelling COMPARISON: None available. TECHNIQUE: Four views of the left knee. FINDINGS: There is chondrocalcinosis. There is joint space narrowing and medial compartment with small subchondral cysts indicative of mild to moderate osteoarthritis. Lateral compartment otherwise normal. Patellofemoral compartment otherwise normal. I do not see a fracture. There is a moderate joint effusion. XR/XR knee LT 3V IMPRESSION: 1. Moderate joint effusion. 2. Chondrocalcinosis. 3. 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
[2023-10-27 10:01] VITALS: BP 138/88; PULSE 90; O2SAT 96
[2023-10-27 11:37] VITALS: BP 129/72; PULSE 77; RESP 18; TEMP 37.9; O2SAT 97; BMI 22.5
--- NOTE | 2023-10-27 11:40 | ED_ITS ---
HPI - General Adult General Chief complaint: Extremity Injury, Lower Stated complaint: INC WEAKNESS,LEG PAIN PER EMS Time Seen by Provider: 10/28/23 00:03 Source: patient, family and EMS Mode of arrival: EMS Limitations: no limitations History of Present Illness HPI narrative: 68-year-old male with a history of hypothyroidism presents to the ER with complaints of left knee swelling. Patient reports within the last week he had a fall in which he believes that he twisted the left knee. Since then he has had increasing swelling and pain. He also feels the knee is quite unstable and giving out on him. He has been taking Motrin and Tylenol home with continued symptoms. He denies any redness, fevers or chills. Patient reports he lives on the 2nd floor and has had difficulty with ambulation. Related Data Home Medications Medication Instructions Recorded Confirmed cholecalciferol (vitamin D3) 25 25 mcg PO DAILY 03/13/21 10/15/23 mcg (1,000 unit) capsule levothyroxine 100 mcg tablet 100 mcg PO DAILY 03/13/21 10/15/23 multivitamin 1 tab PO DAILY 03/13/21 10/15/23 omega-3 fatty acids 500 mg capsule 500 mg PO DAILY 03/13/21 10/15/23 vitamin B complex 1 tab PO DAILY 03/13/21 10/15/23 blood pressure test kit-large #1 ea 08/28/22 10/15/23 pravastatin 20 mg tablet 20 mg PO DAILY 10/14/23 10/15/23 Allergies Allergy/AdvReac Type Severity Reaction Status Date / Time No Known Allergies Allergy Verified 10/25/23 11:48 Review of Systems 2 Review of Systems: Yes all other systems are reviewed and are negative Constitutional: Constitutional: Reports no additional constitutional complaints, Denies body ache(s), Denies chills, Denies fever(s), Denies headache(s) and Denies weakness Eyes: Eyes: Reports no additional eye complaints and Denies change in vision ENT: Reports system reviewed and no additional complaints, except as documented, Denies dizziness, Denies headache(s), Denies nasal congestion, Denies nasal discharge and Denies neck pain Cardiovascular: Cardiovascular: Reports no additional cardiovascular complaints, Denies chest pain, Denies leg edema and Denies dyspnea Respiratory: Respiratory: Reports no additional respiratory complaints, Denies cough and Denies dyspnea Gastrointestinal: Gastrointestinal: Reports no additional gastrointestinal complaints, Denies abdominal pain, Denies diarrhea, Denies nausea and Denies vomiting Genitourinary: Genitourinary: Denies urinary incontinence Musculoskeletal: Musculoskeletal: Reports no additional musculoskeletal complaints, Denies back pain, Reports arthralgias, Denies joint swelling, Denies limited range of motion, Denies neck pain, Denies numbness and Denies tingling Integumentary/Breasts: Skin/Breast: Reports system reviewed and no additional complaints, except as docu and Denies rash Neurologic: Reports system reviewed and no additional complaints, except as documented, Denies Abnormal speech present, Denies dizziness, Denies headache(s), Denies numbness, Denies tingling and Denies weakness PMFSH Past Medical History Attestation statement: The following information was validated with the patient. Source: old records reviewed and nursing notes reviewed Onset Date is defined in the Problem List Problems that require an onset date and time if occurred within 24 hrs of arrival to the ED Aortic Dissection and Rupture; Neurologic impairment; Cardiopulmonary Arrest; Endotracheal Intubation; Insertion or Replacement of Mechanical Circulatory Assist Device Medical History Urinary frequency Bilateral hydrocele Encounter for screening colonoscopy Back pain Anxiety and depression Chronic viral hepatitis C History of heroin abuse Postablative hypothyroidism Surgical History Hx of hernia repair Hx of colonoscopy Hx of laparoscopy Hx of eye surgery Hx of Achilles tendon repair Hx of cervical spine surgery Hx of arthroscopy Hx of inguinal hernia surgery Family History Family History Father No problems noted. Mother Emphysema lung Social History Social History Household Members: None Alcohol intake: never Patient Tobacco Use Status: Never used Tobacco Use of substances other than those prescribed or required for medical reasons: No Substance Use Type: Heroin Advance Directives: No Advance Directives Information Provided: Yes Current occupational status: retired Physical Exam ED Vital Signs: Vital Signs - 24 hr 10/28/23 08:50 10/28/23 08:56 10/28/23 17:18 Temperature 97.9 F Pulse Rate 74 74 65 Respiratory Rate 20 13 Blood Pressure 130/72 130/72 131/77 Pulse Oximetry 97 97 97 Oxygen Delivery Method Room Air Room Air 10/29/23 05:27 Temperature 98.6 F Pulse Rate 82 Respiratory Rate 18 Blood Pressure 138/75 Pulse Oximetry 97 Oxygen Delivery Method Room Air BMI result Body Mass Index 22.5 Const General: cooperative, healthy appearing, comfortable and no acute distress Orientation/consciousness: patient oriented x3 Limitations: no limitations HENMT Head: Yes normal to inspection Ears: hearing grossly normal bilaterally General nose exam: Normal external nose present Face and sinus: Yes normal facial exam Mouth: Normal oral and palatal mucosa present Throat: Yes posterior oropharynx normal Eyes General: appearance normal, both eyes and all related structures Pupils: Equal, round and reactive pupils present Neck Neck: Yes normal visual inspection Chest Chest palpation & inspection: normal inspection of the chest Resp Effort & Inspection: normal respiratory effort Auscultation: clear to auscultation bilaterally Cardio Rate: regular rate Rhythm: regular rhythm Peripheral pulses: Peripheral pulses 2+ throughout GI Inspection: Yes normal to inspection Palpation (GI): Soft to palpation and nontender Auscultation: normal bowel sounds Back/Spine/Pelvis Thoracic/Lumbar Spine: thoracic and lumbar spine normal to inspection Skin General skin exam: no rashes or lesions noted Neuro General: patient oriented x3, no focal motor deficits and normal sensation to monofilament Cranial nerves: Yes Equal, round and reactive pupils present Cognition (Neuro): normal cognition Speech: No Abnormal speech present Gait exam (Neuro): Normal gait present Motor exam (neuro): 5/5 motor strength present throughout Extrem Other: The left knee is swollen. There is no erythema warmth. There is full active and passive range of motion of the knee. There is no ligamental laxity. There is normal distal DP and PT pulses. Normal distal sensation. General: Yes normal to inspection Course Course Course Narrative: This is an RME: Additional HPI, ROS, PE not included below will be deferred to primary provider. 68 year old male with a history of hypotension, anxiety, and chronic hep C presenting to the emergency department today with right foot pain. He was seen in the ER on 10/25 after syncopal episode. Patient states that he has had increased pain and swelling in his left leg. Upon review patient had a x-ray of his right foot, CT head and neck. These were all unremarkable. unable to visualize left knee and upper left leg in triage however appears swollen, and feels warm to the touch. No fevers, he is otherwise feeling well. Plan: labs, ultrasound, xr knee, further ER evaluation needed for better assessment. Reevaluation(s) Reevaluation #1: Ultrasound is negative for DVT. X-ray shows a joint effusion but no bony abnormality. Labs are unremarkable. See procedure note. Patient is concerned that his knee is unstable and giving out on him and he lives in a 2nd floor any cannot go home safely. Therefore patient placed in position observation while we obtain a physical therapy consultation and Case Management will be involved. Reevaluation #2: 10/28/2023 1004 -- Physician observation continues. Case management following. 10/29/2023 0746 -- Physician observation continues. Case management following. Medications Administered Discontinued Medications Generic Name Dose Route Start Last Admin Trade Name Freq PRN Reason Stop Dose Admin Lidocaine HCl 2 ml 10/28/23 00:19 10/28/23 02:01 Lidocaine Hcl 1 % Mpf 2 Ml Vial INFILTRATI 10/28/23 00:20 2 ml ONCE ONE Administration Lidocaine HCl 2 ml 10/28/23 00:22 10/28/23 02:01 Lidocaine Hcl 1 % Mpf 2 Ml Vial INFILTRATI 10/28/23 00:23 2 ml ONCE ONE Administration Lidocaine HCl 2 ml 10/28/23 00:23 10/28/23 02:02 Lidocaine Hcl 1 % Mpf 2 Ml Vial INFILTRATI 10/28/23 00:24 2 ml ONCE ONE Administration Procedures Joint Aspiration/Injection Joint Asp./Inject. 1: Time Out Performed: No Side of body: left Joint Aspirated: knee Ultrasound Guidance: No Skin Prep: Povidone-Iodine1% Local Anesthetic: lidocaine 1% Amount of anesthesia used (mL): 5 Needle Size Used: 18G Fluid Obtained: bloody Total fluid obtained (mL): 80 Patient Tolerated Procedure: well Complications: none Medical Decision Making Medical Decision Making MDM Narrative: 68-year-old male with a history of hypothyroidism presents to the ER with complaints of left knee swelling. Patient reports within the last week he had a fall in which he believes that he twisted the left knee. Since then he has had increasing swelling and pain. He also feels the knee is quite unstable and giving out on him. He has been taking Motrin and Tylenol home with continued symptoms. He denies any redness, fevers or chills. Patient reports he lives on the 2nd floor and has had difficulty with ambulation. The left knee is swollen. There is no erythema warmth. There is full active and passive range of motion of the knee. There is no ligamental laxity. There is normal distal DP and PT pulses. Normal distal sensation. Will review labs, EKG and ultrasound ordered from triage Differential Diagnosis Differential Diagnoses: The differential diagnosis associated with the presentation includes Knee sprain, knee strain, low concern for fracture, dislocation, vascular injury Knee effusion Admission/Observation Consideration of admission/observation: Escalation of care including admission/observation considered Low concern for complex fracture, dislocation, vascular injury requiring advanced imaging, urgent orthopedic consultation Lab Data MDM Lab Attestation statement: I reviewed the patient's lab results. Unremarkable 10/27/23 12:42 10/27/23 12:42 Labs: Lab Results 10/27/23 10/28/23 10/28/23 Range/Units 12:42 01:35 09:08 WBC 10.5 (4.8-10.8) X10*3/uL RBC 4.52 L (4.60-5.80) X10*6/uL Hgb 13.1 L (14.0-18.0) g/dl Hct 38.4 L (42.0-52.0) % MCV 85.0 (80.0-98.0) fL MCH 29.0 (27.0-33.0) pg MCHC 34.1 (31.0-36.0) g/dl RDW 13.4 (11.0-16.0) % Plt Count 226 (160-400) X10*3/uL MPV 9.4 (9.4-12.4) fL Immature Gran % (Auto) 0.6 H (0.0-0.4) % Neut % (Auto) 80.2 H (45-73) % Lymph % (Auto) 7.5 L (20-40) % Hopkins % (Auto) 11.5 H (2-11) % Eos % (Auto) 0.0 (0-4) % Baso % (Auto) 0.2 (0-2) % Lymph # (Auto) 0.8 L (1.2-4.9) X10*3/uL Hopkins # (Auto) 1.2 (0.1-1.2) X10*3/uL Eos # (Auto) 0.0 (0.0-0.4) X10*3/uL Baso # (Auto) 0.0 (0.0-0.2) X10*3/uL Abs Immat Gran (auto) 0.06 H (0.00-0.03) X10*3/uL Absolute Neuts (auto) 8.4 H (2.0-8.3) x10*3/uL Absolute Nucleated RBC 0.000 (0.0-0.012) X10*3/uL Nucleated RBC % (auto) 0.0 (0.0-0.2) /100WBC ESR 17 H (0-15) MM/HR Sodium 139 (135-145) mmol/L Potassium 3.9 (3.3-5.1) mmol/L Chloride 101 (96-108) mmol/L Carbon Dioxide 27 (22-29) mmol/L Anion Gap 15 (12-20) BUN 15 (9-16) mg/dL Creatinine 0.85 (0.5-1.4) mg/dL Estim Creat Clear Calc 74.6 Estimated GFR > 60 Random Glucose 125 H (60-115) mg/dL Uric Acid 4.6 (3.4-7.0) mg/dL Calcium 9.3 (8.4-10.2) mg/dL Total Bilirubin 0.8 (0.0-1.0) mg/dL Direct Bilirubin 0.3 (0.0-0.5) mg/dL AST 47 H (5-37) U/L ALT 43 H (0-40) U/L Alkaline Phosphatase 59 (39-117) U/L C-Reactive Protein 3.33 H (< or = 0.50) mg/dL Total Protein 7.2 (6.5-8.0) g/dL Albumin 4.5 (3.5-5.0) g/dL Synovial Source left knee Synovial WBC 36.150 X10*3/uL Synovial RBC 0.160 X10*6/uL Synovial Neutrophils 94 % Synovial Lymphocytes 2 % Synovial Monocytes 4 % Synovial Glucose 72 MG/DL Synovial Total Protein 4.2 GM/DL COVID-19 (WALKER) Negative (Negative) COVID-19 Clin Com See Note Independent Interpretation I performed an independent interpretation of an: Plain X-Ray and Ultrasound Interpretation: I independently reviewed the x-ray of the knee and the ultrasound agree with Radiology report Radiology Impression Discussion of test interpretation with radiology: I have reviewed the radiologist's reading. Radiologist Impression: [address] [address] XRay Report Signed Patient: Michael Ayala MR#: [id number] : 1955 Acct:[id number] Age/Sex: 68 / M ADM Date: 10/27/23 Loc: HO.ED Attending Dr: Ordering Physician: Sydnie Coe Date of Service: 10/27/23 Procedure(s): XR knee LT 3V Accession Number(s): [id number] cc: Sydnie Coe~ EXAMINATION: XR KNEE, LEFT CLINICAL INFORMATION: Pain and swelling COMPARISON: None available. TECHNIQUE: Four views of the left knee. FINDINGS: There is chondrocalcinosis. There is joint space narrowing and medial compartment with small subchondral cysts indicative of mild to moderate osteoarthritis. Lateral compartment otherwise normal. Patellofemoral compartment otherwise normal. I do not see a fracture. There is a moderate joint effusion. XR/XR knee LT 3V IMPRESSION: 1. Moderate joint effusion. 2. Chondrocalcinosis. 3. 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 [address] [address] Ultrasound Report Signed Patient: Michael Ayala MR#: [id number] : 1955 Acct:[id number] Age/Sex: 68 / M ADM Date: 10/27/23 Loc: .ED Attending Dr: Ordering Physician: Sydnie Coe Date of Service: 10/27/23 Procedure(s): US venous duplex LE LT Accession Number(s): [id number] cc: Sydnie oCe~ EXAMINATION: US VENOUS ULTRASOUND WITH DOPPLER LOWER EXTREMITY, LEFT CLINICAL INFORMATION: Left leg pain, swelling COMPARISON: None available. TECHNIQUE: Ultrasound of the deep veins is performed from the hip to the calf with compression sonography and color and pulse Doppler assessment. Spectral analysis with color-flow imaging is performed. FINDINGS: There is normal venous compression and respiratory variation. The visualized common femoral vein, superficial femoral vein, profunda femoral vein, popliteal vein, and the posterior tibial and peroneal veins show no evidence of deep venous thrombosis. Large effusion seen in the left anterior knee. US/US venous duplex LE LT IMPRESSION: 1. No DVT demonstrated in the left lower extremity. 2. Large effusion seen in the left anterior knee. Tests considered The following testing was considered but not selected: Low concern for complex fracture, dislocation, vascular injury requiring advanced imaging, Prescription Management I considered prescription management with: Antibiotic Discharge Plan Discharge Clinical Impression: Effusion of knee Patient Disposition: Still a Patient Prescriptions: No Action levothyroxine 100 mcg tablet 100 mcg PO DAILY cholecalciferol (vitamin D3) 25 mcg (1,000 unit) capsule 25 mcg PO DAILY multivitamin Tablet 1 tab PO DAILY vitamin B complex Tablet 1 tab PO DAILY omega-3 fatty acids 500 mg capsule 500 mg PO DAILY (DME) blood pressure test kit-large Kit See Rx Instructions .ROUTE DAILY Qty: 1 Rx Instructions: As directed pravastatin 20 mg tablet 20 mg PO DAILY 25 mcg PO DAILY multivitamin Tablet 1 tab PO DAILY vitamin B complex Tablet 1 tab PO DAILY omega-3 fatty acids 500 mg capsule 500 mg PO DAILY (DME) blood pressure test kit-large Kit See Rx Instructions .ROUTE DAILY Qty: 1 Rx Instructions: As directed pravastatin 20 mg tablet 20 mg PO DAILY
[2023-10-27 12:59] LABS: MANUAL DIFF FLAG NO
[2023-10-27 13:03] LABS: Basophils Percent Auto 0.2 % (0-2); Hematocrit 38.4 % (42.0-52.0); Hemoglobin 13.1 g/dl (14.0-18.0); Imm Gran Abs Auto 0.06 X10*3/uL (0.00-0.03); Imm Gran Pct Auto 0.6 % (0.0-0.4); Lymphocytes Absolute Auto 0.8 X10*3/uL (1.2-4.9); Lymphocytes Percent Auto 7.5 % (20-40); Mean Corpuscular HGB Conc 34.1 g/dl (31.0-36.0); Mean Platelet Volume 9.4 fL (9.4-12.4); Monocytes Absolute Auto 1.2 X10*3/uL (0.1-1.2); Monocytes Percent Auto 11.5 % (2-11); Neutrophils Absolute Auto 8.4 x10*3/uL (2.0-8.3); Neutrophils Percent Auto 80.2 % (45-73); Platelet Count 226 X10*3/uL (160-400); Red Blood Count 4.52 X10*6/uL (4.60-5.80); Red Cell Distribution Width 13.4 % (11.0-16.0); White Blood Count 10.5 X10*3/uL (4.8-10.8)
[2023-10-27 13:20] LABS: Alanine Aminotransferase 43 U/L (0-40); Albumin Level 4.5 g/dL (3.5-5.0); Alkaline Phosphatase 59 U/L (39-117); Anion Gap 15 (12-20); Aspartate Amino Transferase 47 U/L (5-37); Bilirubin Direct 0.3 mg/dL (0.0-0.5); Bilirubin Total 0.8 mg/dL (0.0-1.0); Blood Urea Nitrogen 15 mg/dL (9-16); C Reactive Protein 3.33 mg/dL (< or = 0.50); Calcium 9.3 mg/dL (8.4-10.2); Carbon Dioxide 27 mmol/L (22-29); Chloride 101 mmol/L (96-108); Creatinine Clr Calc Pharmacy 74.6; Estimated Glomerular Filt Rate > 60; Glucose Random 125 mg/dL (60-115); Potassium 3.9 mmol/L (3.3-5.1); Sodium 139 mmol/L (135-145); Total Protein 7.2 g/dL (6.5-8.0); Uric Acid 4.6 mg/dL (3.4-7.0)
[2023-10-27 13:39] LABS: Erythrocyte Sedimentation Rate 17 MM/HR (0-15)
[2023-10-27 17:36] VITALS: BP 137/76; PULSE 71; RESP 18; TEMP 36.9; O2SAT 97
--- NOTE | 2023-10-27 17:37 | PC.NURSE ---
Addendum entered by Freda Montes De Oca RN 10/27/23 17:41: Patient lives alone and has been having trouble ambulating around the house in the past few days. Patient states that in the ED waiting room he was able to stand independently. Original Note: Patient presenting for pain and swelling right above the left knee. Pain is described as a pressure and achiness that has improved some with rest and ice. Patient is alert and oriented, speaking in full sentences, no s/s of distress noted at this time. Patient calm and cooperative with staff.
[2023-10-28 01:40] LABS: Source Synovial Fluid left knee
[2023-10-28] MEDS: Lidocaine HCl 1 % MPF 2 ML VIAL INFILTRATI ×3 (02:01→02:02)
[2023-10-28 02:05] VITALS: BP 138/72; PULSE 78; RESP 16; O2SAT 97
[2023-10-28 02:06] LABS: MN% 5.7 %; PMN% 94.3 %
[2023-10-28 02:33] LABS: BF Shift QC OK YES; Lymphocytes Synovial Fluid 2 %; Man Diluent Bkgrd OK YES; Monocytes Synovial Fluid 4 %; Neutrophils Synovial Fluid 94 %
--- NOTE | 2023-10-28 02:46 | PC.NURSE ---
pt offered Tylenol for pain, pt refused at this time, pt is resting in bed, positive CmS to bilateral extremities.
[2023-10-28 03:18] LABS: Glucose Synovial Fluid 72 MG/DL; Total Protein Synovial Fluid 4.2 GM/DL
[2023-10-28 04:07] VITALS: PULSE 71; RESP 16; TEMP 36.2; O2SAT 98
[2023-10-28 06:00] VITALS: BP 133/80; PULSE 74; RESP 16; TEMP 37.2; O2SAT 96
--- NOTE | 2023-10-28 07:30 | PC.NURSE ---
pt currently sleeping, cardiac nurse specialist intact sinus gricelda 60s on monitor, will assess pt when he wakes.
--- NOTE | 2023-10-28 08:45 | PC.NURSE ---
pt sleeping woke to verbal stimulus for PT, PT working with patient at this time.
--- NOTE | 2023-10-28 08:49 | PC.NURSE ---
kitchen called for pt diet tray
[2023-10-28 08:50] VITALS: BP 130/72; PULSE 74; O2SAT 97
[2023-10-28 08:56] VITALS: BP 130/72; PULSE 74; RESP 20; TEMP 36.6; O2SAT 97
--- NOTE | 2023-10-28 08:56 | PC.NURSE ---
patient a&ox3, air sampling and monitoring intact-nsr, vss, pt denies current pain/discomfort, ambulated short distance with walker with PT, pt given breakfast, call louis within reach, will continue to monitor
[2023-10-28 10:05] LABS: COVID-19 Test Negative (Negative); IDNOW Serial# 08D9AD1C
--- NOTE | 2023-10-28 10:37 | MHC.CM.ED ---
Addendum entered by Kendal Gifford 10/28/23 11:49: [facility], [facility], [facility], [facility], [facility], and [facility] are able to offer a bed. These options discussed with patient. Patient accepts bed at [facility]. Facility made aware. MDS completed. Faxed to [facility] and sent to [facility] via [employer]. HCP completed, signed and witnessed. Original given to patient. Copy placed in chart. Original Note: Received case management consult overnight. Patient came to the ER due to knee pain. Work up essentially negative. Physical therapy eval completed. Acute rehab is recommended. Referral sent to all 3 acute rehab facilities. No bed offered at this time. Referral broadcasted to all shelter facilities within 15 miles of patient's residence that are contracted with [facility]. Met with patient in regards to discharge planning. Patient lives alone, ambulates independently and had no services prior to coming to the ER. PCP verified as Hilda Talamantes. Patient received 4 Moderna and 2 Pfizer vaccines. Patient has not been to any rehab in the past. Aware referral has been broadcasted at this time. It was documented by nursing that patient has a history of heroin abuse. Patient states that was over 20 years ago. He is not on suboxone or methadone. Continue to monitor for d/c needs.
[2023-10-28 17:18] VITALS: BP 131/77; PULSE 65; RESP 13; O2SAT 97
--- NOTE | 2023-10-28 17:20 | PC.NURSE ---
patient a&ox3, vss, pt awaiting placement for rehab, pt hasnt had any c/o pain/discomfort during the day today, call louis within reach, will continue to monitor.
--- NOTE | 2023-10-28 17:48 | PC.NURSE ---
report called to overflow. pt to be transported
--- NOTE | 2023-10-28 23:58 | PC.NURSE ---
pt a&o, no sob, no chest pain, pt ambulated with walker and an assist, pt sleeping, no sign of distress at this time.
--- NOTE | 2023-10-29 04:57 | PC.NURSE ---
pt sleeping at this time.
[2023-10-29 05:27] VITALS: BP 138/75; PULSE 82; RESP 18; TEMP 37; O2SAT 97
--- NOTE | 2023-10-29 06:36 | PC.NURSE ---
pt took of ilir wrap for comfort, will applying mid morning, assisted with urinal at the bed side
[2023-10-29 08:29] VITALS: BP 147/68; PULSE 67; RESP 18; TEMP 37.2
[2023-10-29 09:00] VITALS: BP 147/84; PULSE 67; RESP 18; TEMP 36.7; O2SAT 97
--- NOTE | 2023-10-29 10:01 | PHA.MEDREC ---
Pharmacy Consult ? Medication Reconciliation Pharmacy has completed the medication reconciliation. Spoke to patient at bedside, stated he stopped taking pravastatin bc he was using diet and lifestyle changes
[2023-10-29 14:00] VITALS: BP 116/66; PULSE 82; RESP 18; TEMP 36.7; O2SAT 98
--- NOTE | 2023-10-29 15:18 | MHC.CM.ED ---
[facility] Patient can leave for [facility] at 530pm. Leeroy RUBIN booked. [facility]. Patient, La Nena GODOY and Sheila FAIRBANKS aware. Continue to monitor for d/c needs.
--- NOTE | 2023-10-29 15:35 | MHC.EDTECH ---
Emptied patients urinal 600ml.
--- NOTE | 2023-10-29 16:50 | PC.NURSE ---
Report to Marychuy at [facility]
== END 2023-10-29 20:00 | disposition skilled nursing facility (03) ==
PROVIDERS: Nurse Practitioner Family; Physician Assistant Medical; Emergency Provider Emergency Medicine Emergency Medical Services; PCP Internal Medicine
DX: M25.462 Effusion, left knee (principal); M79.605 Pain in left leg; B18.2 Chronic viral hepatitis C; E89.0 Postprocedural hypothyroidism; Z11.52 Encounter for screening for COVID-19; Z79.899 Other long term (current) drug therapy; Z91.81 History of falling
CPT/HCPCS: 20610; 36415; 73562; 80048; 80076; 82945; 84157; 84550; 85025; 85652; 86140; 87070; 87073; 87205; 87635; 89051; 89060; 93971; 97161; 99284; 99285

== ENCOUNTER 2023-11-06 13:16 | Outpatient (REF) | payer MEDICARE, MEDICAID, SELFPAY ==
--- NOTE | ~2023-11-06 | US_ITS ---
EXAMINATION: US RETROPERITONEAL COMPLETE (RENAL) CLINICAL INFORMATION: Frequency of micturition. COMPARISON: CT abdomen and pelvis 05/08/2016. X-ray abdomen 04/23/2015. Ultrasound abdomen 01/11/2013. TECHNIQUE: Real-time imaging of the kidneys and bladder. FINDINGS: RIGHT KIDNEY: 10.7 x 6.3 x 6.1 cm (SAG x AP x TRV). The kidney is normal in size, contour, and echogenicity. Renal cortical thickness is normal. No calculi or focal parenchymal lesions. No hydronephrosis. LEFT KIDNEY: 10.3 x 4.5 x 4.2 cm (SAG x AP x TRV). The kidney is normal in size, contour, and echogenicity. Renal cortical thickness is normal. No calculi or focal parenchymal lesions. No hydronephrosis. BLADDER: Well distended. Bilateral ureteral jets are demonstrated. Prevoid bladder volume is 184 mL. Postvoid bladder volume is 15 mL. The bladder wall thickness is 7 mm, with some edematous change noted. OTHER: Prostate dimensions are 4.4 x 4.3 x 4.3 cm, volume 41.9 mL. US/US retroperitoneal comp IMPRESSION: 1. There is bladder wall thickening and possible edema. While this may be in part owing to hypertrophic change, the possibility of superimposed inflammation/infection cannot be excluded. Please correlate with the patient's most recent urinalysis. 2. There is mild prostatomegaly.
== END 2023-11-06 13:17 | disposition home or self-care (01) ==
LOC: HO.US 13:16
PROVIDERS: PCP Internal Medicine; Visit Provider Nurse Practitioner Family
DX: R35.0 Frequency of micturition (principal)
CPT/HCPCS: 76770

== ENCOUNTER → 2023-11-20 13:48 | Outpatient (BNVA) | payer MEDICARE, MEDICAID, SELFPAY | PROVIDERS: PCP Internal Medicine; Visit Provider Nurse Practitioner Family | DX: N32.89 Other specified disorders of bladder (principal); N40.0 Benign prostatic hyperplasia without lower urinary tract symptoms | CPT/HCPCS: 81003; 99212 ==

== ENCOUNTER 2023-11-20 13:56 | Outpatient (AMB) | payer MEDICARE, MEDICAID, SELFPAY ==
--- NOTE | 2023-11-20 13:52 | A.OFFVIS_ITS ---
Intake Intake Visit Reasons: 5w follow up/ US(set) Intake Note: Patient presents for follow up elevated psa and ultrasound (imaging 10/27/23) Urology Medications: none Blood Thinners: none Library Historian Required: No Accompanied by: Self / Same As Patient Allergies No Known Allergies Allergy (Verified 11/21/23 11:09) Medication List - Last Reconciled 11/21/23 by GLORIA No blood pressure test kit-large As directed cholecalciferol (vitamin D3) 25 mcg PO DAILY levothyroxine 100 mcg PO DAILY@0600 multivitamin 1 tab PO DAILY omega-3 fatty acids 500 mg PO DAILY tamsulosin 0.4 mg PO BEDTIME 30 days vitamin B complex 1 tab PO DAILY HPI HPI Comments History of Present Illness Details Michael Dasilva is a pleasant 68 year-old male patient of Dr. Silvestre Talamantes. He has a past medical history of back pain, anxiety, depression, chronic hep C, history of heroin abuse in remission, and hypothyroidism. He presents to the office today for a follow up. Of note, patient was seen approximately 1 months ago for an elevated % free PSA at which time a retroperitoneal ultrasound was ordered for further assessment and evaluation. These results were reviewed with the patient today. Bilateral kidneys with no calculi, lesions, and or hydronephrosis. The bladder is well distended. Bilateral ureteral jets are demonstrated. Pre void bladder volume is approximately 185 mL. Postvoid bladder volume is approximately 15 mL. The bladder wall thickness is 7 mm with some edematous changes noted. Prostate measures approximately 42 mL. Discussed at length bladder wall thickening and prostatomegaly. Discussed potential causes and affects of these findings. Discussed trial of finasteride and flomax. PSA and testosterone is as follows: 03/13--PSA 1.3 03/13--testosterone 678 09/17--PSA 1.8 % free PSA 22% When asked he denies any bothersome urinary issues or concerns. He does report noting weak urinary stream. He denies urinary urgency, urinary frequency, incontinence, nocturia, hematuria, dysuria, foul smelling urine, flank pain, fever, and or chills. He is happy with his current voiding parameters. [facility] Medical History Urinary frequency Bilateral hydrocele Encounter for screening colonoscopy Back pain Anxiety and depression Chronic viral hepatitis C History of heroin abuse Postablative hypothyroidism Surgical History Hx of hernia repair Hx of colonoscopy Hx of laparoscopy Hx of eye surgery Hx of Achilles tendon repair Hx of cervical spine surgery Hx of arthroscopy Hx of inguinal hernia surgery Family History Father No problems noted. Mother Emphysema lung Social History Household Members: None Alcohol intake: never Patient Tobacco Use Status: Never used Tobacco Substance Use Type: Heroin Current occupational status: retired Review of Systems Const All systems reviewed & are unremarkable except as noted in HPI and below Reports as per HPI Eyes Reports no additional complaints ENT Reports no additional complaints Card Reports no additional complaints Resp Reports no additional complaints GI Reports as per HPI Reports as per HPI Musc Denies no additional complaints Neuro Reports no additional complaints Psych Reports as per HPI Endo Reports as per HPI Ramesh/Lymph Reports no additional complaints Aller/Immun Reports no additional complaints Physical Exam Const General: cooperative, healthy appearing, comfortable, no acute distress, well developed, alert and awake Nutritional Appearance: average body habitus Orientation/consciousness: patient oriented x3 Limitations: no limitations HEENT Head: Yes normal to inspection, Yes normocephalic and Yes atraumatic Ears: hearing grossly normal bilaterally Eyes General: appearance normal, both eyes and all related structures Neck Neck: Yes normal visual inspection and Yes trachea midline Chest Chest palpation & inspection: normal inspection of the chest Resp Effort & Inspection: normal respiratory effort and able to speak in complete sentences Cardio Rate: regular rate GI Inspection: Yes normal to inspection General: Yes no CVA tenderness Back/Spine/Pelvis Back: no CVA tenderness Skin General skin exam: no rashes or lesions noted Neuro General: patient oriented x3 Extrem General: Yes normal to inspection Psych Appearance: grossly normal and well kempt Mental Status: mental status grossly normal Speech and movement: Normal speech and movement present and Clear speech present Affect: normal affect Attitude: cooperative Thought process: Normal thought process present Thought content: Normal thought content present Insight: Fair insight present (Psych) Judgement: Fair judgement present (Psych) Results AMB Urinalysis, Automated UA Leukoctes 0 Soco/uL Last Edit by [employer] on 11/20/23 14:08 UA Nitrite Negative Last Edit by [employer] on 11/20/23 14:08 UA Urobilinogen 0.2 mg/dL Last Edit by [employer] on 11/20/23 14:08 UA Protein 0 mg/dL Last Edit by [employer] on 11/20/23 14:08 UA pH 6.0 Last Edit by [employer] on 11/20/23 14:08 UA Blood 0 Dereje/uL Last Edit by [employer] on 11/20/23 14:08 UA Specific [place] 1.010 Last Edit by [employer] on 11/20/23 14:08 UA Ketone Negative Last Edit by [employer] on 11/20/23 14:08 UA Bilirubin 0 mg/dL Last Edit by [employer] on 11/20/23 14:08 UA Glucose 0 mg/dL Last Edit by [employer] on 11/20/23 14:08 Results Reviewed Results Reviewed: Laboratory Last Values Urine pH (Auto) 6.0 11/20/23 14:07 Specific [place] (Auto) 1.010 11/20/23 14:07 Urine Protein (Auto) 0 mg/dL 11/20/23 14:07 Glucose (UA)(Auto) 0 mg/dL 11/20/23 14:07 Urine Ketones (Auto) Negative 11/20/23 14:07 Urine Blood (Auto) 0 Dereje/uL 11/20/23 14:07 Urine Nitrite (Auto) Negative 11/20/23 14:07 Urine Bilirubin (Auto) 0 mg/dL 11/20/23 14:07 Urine Urobilinogen (Auto) 0.2 mg/dL 11/20/23 14:07 Leukocyte Esterase (Auto) 0 Soco/uL 11/20/23 14:07 Date of Service: 11/06/23 EXAMINATION: US RETROPERITONEAL COMPLETE (RENAL) FINDINGS: RIGHT KIDNEY: 10.7 x 6.3 x 6.1 cm (SAG x AP x TRV). The kidney is normal in size, contour, and echogenicity. Renal cortical thickness is normal. No calculi or focal parenchymal lesions. No hydronephrosis. LEFT KIDNEY: 10.3 x 4.5 x 4.2 cm (SAG x AP x TRV). The kidney is normal in size, contour, and echogenicity. Renal cortical thickness is normal. No calculi or focal parenchymal lesions. No hydronephrosis. BLADDER: Well distended. Bilateral ureteral jets are demonstrated. Prevoid bladder volume is 184 mL. Postvoid bladder volume is 15 mL. The bladder wall thickness is 7 mm, with some edematous change noted. OTHER: Prostate dimensions are 4.4 x 4.3 x 4.3 cm, volume 41.9 mL. IMPRESSION: 1. There is bladder wall thickening and possible edema. While this may be in part owing to hypertrophic change, the possibility of superimposed inflammation/infection cannot be excluded. Please correlate with the patient's most recent urinalysis. 2. There is mild prostatomegaly. Assessment & Plan Assessment & Plan (1) Bladder wall thickening: Code(s): N32.89 - Other specified disorders of bladder (2) Enlarged prostate: Code(s): N40.0 - Benign prostatic hyperplasia without lower urinary tract symptoms Plan In office urinalysis results reviewed with the patient today; as noted above. Recent retroperitoneal ultrasound results reviewed with the patient today; as noted above Discussed at length potential causes for bladder wall thickening and enlarged prostate noted on imaging Patient currently denies any bothersome urinary issues or concerns. Discuss trial of Flomax and finasteride; however patient discusses at length his reluctancy to medications Start flomax as discussed and prescribed Discussed possible near future in office cystoscopy for further assessment eval uation. Follow up in 6 weeks with PVR; or sooner with any issues, concerns, and or questions. Orders: Orders AMB Urinalysis Automated 11/20/23 Z13.9 - Encounter for screening, unspecified Medications: New tamsulosin 0.4 mg PO BEDTIME 30 days 30 caps 1RF N40.1 - Benign prostatic hyperplasia with lower urinary tract symptoms, R35.1 - Nocturia Patient Instructions: The patient had an opportunity to ask questions regarding the treatment plan. All questions were answered. Physical exam, labs, and imaging were discussed and reviewed in detail. As well as risks, benefits, and discussion of treatment choices. No major barriers to understanding were identified. The patient expressed understanding and agreement with the above treatment plan. The patient was made aware they should contact our office by phone for worsening of their current condition, the appearance of new symptoms, or with any questions or concerns. Compliance is encouraged with any medications and follow up testing that is ordered. It is a privilege to be allowed the opportunity to participate in? your urological care.? Again, if you have any questions or concerns If you have any questions or concerns please do not hesitate to contact me. The office is [phone]. This note is constructed using voice recognition software. While every effort has been made to ensure accuracy drywall installer errors may have been included. Yours sincerely, GLORIA No Coding Level of Care Code Est Pt Level 4 (68981) Diagnoses Bladder wall thickening N32.89 Enlarged prostate N40.0
== END 2023-11-20 14:57 | disposition home or self-care (01) ==
PROVIDERS: PCP Internal Medicine; Visit Provider Nurse Practitioner Family
DX: N32.89 Other specified disorders of bladder (principal); N40.0 Benign prostatic hyperplasia without lower urinary tract symptoms
CPT/HCPCS: 99214

== ENCOUNTER 2023-12-15 10:45 | Outpatient (REF) | payer MEDICARE, MEDICAID, SELFPAY ==
[2023-12-15 11:48] LABS: Cholesterol 169 mg/dL (<200); HDL Cholesterol 50 mg/dL (>40); LDL Cholesterol Calculated 99 mg/dL (<100); Triglycerides 100 mg/dL (<150)
== END 2023-12-15 10:46 | disposition home or self-care (01) ==
LOC: HO.HHCL 10:45
PROVIDERS: Visit Provider Internal Medicine
DX: E78.5 Hyperlipidemia, unspecified (principal)
CPT/HCPCS: 36415; 80061

== ENCOUNTER 2024-01-01 13:39 | Outpatient (AMB) | payer MEDICARE, MEDICAID, SELFPAY ==
--- NOTE | 2024-01-01 13:57 | A.OFFVIS_ITS ---
Intake Intake Visit Reasons: 6w/PVR Intake Note: Patient presents for follow up enlarged prostate and PVR Urology Medications: Tamsulosin Blood Thinners: none PVR: 59ml's Municipal Engineer Required: No Accompanied by: Self / Same As Patient Allergies No Known Allergies Allergy (Verified 01/01/24 14:57) Medication List - Last Reconciled 01/01/24 by LIAT NoP- blood pressure test kit-large As directed cholecalciferol (vitamin D3) 25 mcg PO DAILY levothyroxine 100 mcg PO DAILY@0600 multivitamin 1 tab PO DAILY omega-3 fatty acids 500 mg PO DAILY vitamin B complex 1 tab PO DAILY HPI HPI Comments History of Present Illness Details Michael Dasilva is a pleasant 68 year-old male patient of Dr. Silvestre Talamantes. He has a past medical history of back pain, anxiety, depression, chronic hep C, history of heroin abuse in remission, and hypothyroidism. He presents to the office today for a follow up. Of note, patient was seen approximately 6 weeks ago at which time he was started on Flomax for reports of weak urinary stream, nocturia, and urinary frequency. In discussion with the patient today he reports he has since stopped taking Flomax as he had been experiencing issues with obtaining and maintaining his erections. He also reports in the 3 weeks of taking the medication he did not feel any improvement. Discussed further treatment options however patient does not find lower urinary tract symptoms bothersome at this time. Patient with a history of elevated % free PSA and previous workup has included a retroperitoneal ultrasound noting bilateral kidneys with no calculi, lesions, and or hydronephrosis. The bladder is well distended. Bilateral ureteral jets are demonstrated. Pre void bladder volume is approximately 185 mL. Postvoid bladder volume is approximately 15 mL. The bladder wall thickness is 7 mm with some edematous changes noted. Prostate measures approximately 42 mL. Discussed at length bladder wall thickening and prostatomegaly. PSA and testosterone is as follows: 03/13--PSA 1.3 03/13--testosterone 678 09/17--PSA 1.8 % free PSA 22% In office urinalysis results reviewed with the patient today. PVR 59 mL. Discussed in office cystoscopy for further assessment evaluation however patient declines at this time. He currently does not feel lower urinary tract symptoms are bothersome and does not wish to undergo further treatment options at this time. He discusses riding his bike every other day for approximately 20 miles in on alternating days walks approximately 3 miles per day. He otherwise denies incontinence, hematuria, dysuria, foul smelling urine, flank pain, fever, and or chills. He is happy with his current voiding parmaters. [facility] Medical History Urinary frequency Bilateral hydrocele Encounter for screening colonoscopy Back pain Anxiety and depression Chronic viral hepatitis C History of heroin abuse Postablative hypothyroidism Surgical History Hx of hernia repair Hx of colonoscopy Hx of laparoscopy Hx of eye surgery Hx of Achilles tendon repair Hx of cervical spine surgery Hx of arthroscopy Hx of inguinal hernia surgery Family History Father No problems noted. Mother Emphysema lung Social History Household Members: None Alcohol intake: never Patient Tobacco Use Status: Never used Tobacco Substance Use Type: Heroin Current occupational status: retired Review of Systems Const All systems reviewed & are unremarkable except as noted in HPI and below Reports as per HPI Eyes Reports no additional complaints ENT Reports no additional complaints Card Reports no additional complaints Resp Reports no additional complaints GI Reports as per HPI Reports as per HPI Musc Denies no additional complaints Neuro Reports no additional complaints Psych Reports as per HPI Endo Reports as per HPI Ramesh/Lymph Reports no additional complaints Aller/Immun Reports no additional complaints Physical Exam Const General: cooperative, healthy appearing, comfortable, no acute distress, well developed, alert and awake Nutritional Appearance: average body habitus Orientation/consciousness: patient oriented x3 Limitations: no limitations HEENT Head: Yes normal to inspection, Yes normocephalic and Yes atraumatic Ears: hearing grossly normal bilaterally Eyes General: appearance normal, both eyes and all related structures Neck Neck: Yes normal visual inspection and Yes trachea midline Chest Chest palpation & inspection: normal inspection of the chest Resp Effort & Inspection: normal respiratory effort and able to speak in complete sentences Cardio Rate: regular rate GI Inspection: Yes normal to inspection General: Yes no CVA tenderness Back/Spine/Pelvis Back: no CVA tenderness Skin General skin exam: no rashes or lesions noted Neuro General: patient oriented x3 Extrem General: Yes normal to inspection Psych Appearance: grossly normal and well kempt Mental Status: mental status grossly normal Speech and movement: Normal speech and movement present and Clear speech present Affect: normal affect Attitude: cooperative Thought process: Normal thought process present Thought content: Normal thought content present Insight: Fair insight present (Psych) Judgement: Fair judgement present (Psych) Office Procedures Post Void Residual Post Residual Void Post Void Residual (PVR): 59 [id number] Void Residual by ultrasound Results AMB Urinalysis, Automated UA Leukoctes 0 Soco/uL Last Edit by [employer] on 01/01/24 14:31 UA Nitrite Negative Last Edit by [employer] on 01/01/24 14:31 UA Urobilinogen 0.2 mg/dL Last Edit by [employer] on 01/01/24 14:31 UA Protein 0 mg/dL Last Edit by [employer] on 01/01/24 14:31 UA pH 6.0 Last Edit by [employer] on 01/01/24 14:31 UA Blood 0 Dereje/uL Last Edit by [employer] on 01/01/24 14:31 UA Specific [place] 1.005 Last Edit by [employer] on 01/01/24 14:31 UA Ketone Negative Last Edit by [employer] on 01/01/24 14:31 UA Bilirubin 0 mg/dL Last Edit by [employer] on 01/01/24 14:31 UA Glucose 0 mg/dL Last Edit by [employer] on 01/01/24 14:31 Results Reviewed Results Reviewed: Laboratory Last Values Urine pH (Auto) 6.0 01/01/24 14:30 Specific [place] (Auto) 1.005 01/01/24 14:30 Urine Protein (Auto) 0 mg/dL 01/01/24 14:30 Glucose (UA)(Auto) 0 mg/dL 01/01/24 14:30 Urine Ketones (Auto) Negative 01/01/24 14:30 Urine Blood (Auto) 0 Dereje/uL 01/01/24 14:30 Urine Nitrite (Auto) Negative 01/01/24 14:30 Urine Bilirubin (Auto) 0 mg/dL 01/01/24 14:30 Urine Urobilinogen (Auto) 0.2 mg/dL 01/01/24 14:30 Leukocyte Esterase (Auto) 0 Soco/uL 01/01/24 14:30 Assessment & Plan Assessment & Plan (1) Enlarged prostate: Code(s): N40.0 - Benign prostatic hyperplasia without lower urinary tract symptoms (2) Bladder wall thickening: Code(s): N32.89 - Other specified disorders of bladder Plan In office urinalysis results reviewed with today; as noted above. PVR 59 mL. Stop Flomax. Discussed further treatment options at length to include other urological medication, and or in office cystoscopy for further assessment evaluation. Patient does not feel bothersome urinary issues or concerns at this time. Will continue with surveillance monitoring. Discussed bladder triggers/irritants. Will obtain PSA in 6 months. Follow-up in 6 months with lab to be completed prior; or sooner with any issues, concerns, and or questions. Orders: Orders Prostate Specific Antigen 6 Months N32.89 - Other specified disorders of bladder, N40.0 - Benign prostatic hyperplasia without lower urinary tract symptoms AMB Urinalysis Automated 01/01/24 Z13.9 - Encounter for screening, unspecified AMB Post Void Residual by ultrasound 01/01/24 N40.0 - Benign prostatic hyperplasia without lower urinary tract symptoms Medications: Discontinued tamsulosin Discontinued Reason: Doctor's Order 0.4 mg PO BEDTIME 30 days 30 caps 1RF N40.1 - Benign prostatic hyperplasia with lower urinary tract symptoms, R35.1 - Nocturia Patient Instructions: The patient had an opportunity to ask questions regarding the treatment plan. All questions were answered. Physical exam, labs, and imaging were discussed and reviewed in detail. As well as risks, benefits, and discussion of treatment choices. No major barriers to understanding were identified. The patient expressed understanding and agreement with the above treatment plan. The patient was made aware they should contact our office by phone for worsening of their current condition, the appearance of new symptoms, or with any questions or concerns. Compliance is encouraged with any medications and follow up testing that is ordered. It is a privilege to be allowed the opportunity to participate in? your urological care.? Again, if you have any questions or concerns If you have any questions or concerns please do not hesitate to contact me. The office is [phone]. This note is constructed using voice recognition software. While every effort has been made to ensure accuracy flavoring maker errors may have been included. Yours sincerely, LIAT NoP-BC Coding Level of Care Code Est Pt Level 3 (86067) Diagnoses Enlarged prostate N40.0 Bladder wall thickening N32.89 CPT Codes Post Residual Void - PVR CPT Code: 51143-Zqdr Void Residual by ultrasound ([id number])
== END 2024-01-01 15:07 | disposition home or self-care (01) ==
PROVIDERS: PCP Internal Medicine; Visit Provider Nurse Practitioner Family
DX: N40.0 Benign prostatic hyperplasia without lower urinary tract symptoms (principal); N32.89 Other specified disorders of bladder
CPT/HCPCS: 99213

== ENCOUNTER → 2024-01-01 13:39 | Outpatient (BNVA) | payer MEDICARE, MEDICAID, SELFPAY | PROVIDERS: PCP Internal Medicine; Visit Provider Nurse Practitioner Family | DX: N40.0 Benign prostatic hyperplasia without lower urinary tract symptoms (principal); N32.89 Other specified disorders of bladder | CPT/HCPCS: 51798; 81003; 99212 ==

== ENCOUNTER 2024-01-06 11:53 | Day surgery (SDC) | payer MEDICARE, MEDICAID, SELFPAY ==
[2024-01-04 08:47] VITALS: BMI 23.0
--- NOTE | 2024-01-04 14:28 | P.CONAN_ITS ---
Documented by User: Sobia Tate NP 01/04/24 14:29 HPI - Anesthesia Eval Consult details Narrative: 68yo M for Colonoscopy PMFSH Active Problems Active Problems: All Active Problems (Updated 11/21/23 @ 16:32 by GLORIA No) Enlarged prostate (Acute) Bladder wall thickening (Acute) Anxiety and depression (Acute) Chronic viral hepatitis C (Acute) Elevated PSA (Acute) Varicocele (Acute) Postablative hypothyroidism (Acute) Past Medical History Medical History Urinary frequency Bilateral hydrocele Encounter for screening colonoscopy Back pain Anxiety and depression Chronic viral hepatitis C History of heroin abuse Postablative hypothyroidism Family History Family History Father No problems noted. Mother Emphysema lung Family history of problems with anesthesia: No Surgical History Surgical History Hx of hernia repair Hx of colonoscopy Hx of laparoscopy Hx of eye surgery Hx of Achilles tendon repair Hx of cervical spine surgery Hx of arthroscopy Hx of inguinal hernia surgery History of Problems with Anesthesia: No Social History Social History Household Members: None Alcohol intake: never Patient Tobacco Use Status: Never used Tobacco Substance Use Type: Heroin Current occupational status: retired [employer] Allergies Allergy/AdvReac Type Severity Reaction Status Date / Time No Known Allergies Allergy Verified 01/01/24 14:57 Home Medications Medication Instructions Recorded Confirmed Last Taken Type cholecalciferol (vitamin D3) 25 25 mcg PO DAILY 03/13/21 01/04/24 Unknown H istory mcg (1,000 unit) capsule levothyroxine 100 mcg tablet 100 mcg PO DAILY@0600 03/13/21 01/04/24 Unknown History multivitamin 1 tab PO DAILY 03/13/21 01/04/24 Unknown History omega-3 fatty acids 500 mg capsule 500 mg PO DAILY 03/13/21 11/21/23 Unknown History vitamin B complex 1 tab PO DAILY 03/13/21 01/04/24 Unknown History blood pressure test kit-large #1 ea 08/28/22 11/21/23 Unknown History ascorbic acid (vitamin C) 500 mg 500 mg PO DAILY 01/04/24 01/04/24 Unknown History tablet (Vitamin C) lactobacillus combination no.4 3 3,000 mmu cells PO DAILY 01/04/24 01/04/24 Unknown History billion cell capsule (Probiotic) tamsulosin 0.4 mg capsule 0.4 mg PO BEDTIME 01/04/24 01/04/24 Unknown History Exam Height,Weight and Vital Signs: Height 5 ft 7 in Weight 66.678 kg Pertinent Lab Results Pertinent Lab Results: Laboratory Tests 10/27/23 12:42 WBC 10.5 Hgb 13.1 L Hct 38.4 L Plt Count 226 Sodium 139 Potassium 3.9 Chloride 101 Carbon Dioxide 27 BUN 15 Creatinine 0.85 Narrative Narrative: EKG 09/2023 Vent. 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) Abnormal ECG When compared with ECG of 13-JAN-2012 15:21, No significant change was found Assessment and Plan Assessment Anesthesia Assessment: Chart Reviewed Final Anesthetic Review Family History of Problems with Anesthesia: No History of Problems with Anesthesia: No Documented by User: Elda Corral MD 01/06/24 12:19 [facility] Past Medical History Medical History Urinary frequency Bilateral hydrocele Encounter for screening colonoscopy Back pain Anxiety and depression Chronic viral hepatitis C History of heroin abuse Postablative hypothyroidism Family History Family History Father No problems noted. Mother Emphysema lung Surgical History Surgical History Hx of hernia repair Hx of colonoscopy Hx of laparoscopy Hx of eye surgery Hx of Achilles tendon repair Hx of cervical spine surgery Hx of arthroscopy Hx of inguinal hernia surgery Social History Social History Household Members: None Alcohol intake: never Patient Tobacco Use Status: Never used Tobacco Substance Use Type: Heroin Current occupational status: retired Meds Allergies Allergy/AdvReac Type Severity Reaction Status Date / Time No Known Allergies Allergy Verified 01/01/24 14:57 Home Medications Medication Instructions Recorded Confirmed Last Taken Type cholecalciferol (vitamin D3) 25 25 mcg PO DAILY 03/13/21 01/04/24 Unknown History mcg (1,000 unit) capsule levothyroxine 100 mcg tablet 100 mcg PO DAILY@0600 03/13/21 01/04/24 Unknown History multivitamin 1 tab PO DAILY 03/13/21 01/04/24 Unknown History omega-3 fatty acids 500 mg capsule 500 mg PO DAILY 03/13/21 11/21/23 Unknown History vitamin B complex 1 tab PO DAILY 03/13/21 01/04/24 Unknown History blood pressure test kit-large #1 ea 08/28/22 11/21/23 Unknown History ascorbic acid (vitamin C) 500 mg 500 mg PO DAILY 01/04/24 01/04/24 Unknown History tablet (Vitamin C) lactobacillus combination no.4 3 3,000 mmu cells PO DAILY 01/04/24 01/04/24 Unknown History billion cell capsule (Probiotic) tamsulosin 0.4 mg capsule 0.4 mg PO BEDTIME 01/04/24 01/04/24 Unknown History Exam Airway Mallampati Class: II TM Dist: >3cm Neck ROM: Full Partial: Upper Heart: rrr Lungs: cta Assessment and Plan Assessment Anesthesia Assessment: Anesthesia Plan Discussed Final Anesthetic Review NPO: Yes ASA Class: II Final Preanesthetic Review: No Changes in Pt Med Stat, Meds/Allgs Chart Reviewed and Consent Obtained/Reviewed Patient Risk: Intermediate Procedure Risk: Low Anesthetic Plan Anesthetic Plan: MAC: Disposition: Standard PACU
[2024-01-06 12:09] VITALS: BMI 22.5
[2024-01-06 12:13] VITALS: BP 138/89; PULSE 68; RESP 18; TEMP 36; O2SAT 99
[2024-01-06] MEDS: Lactated Ringers 1,000 ML 100 ML IVCONT (12:35)
--- NOTE | 2024-01-06 12:52 | MHC.SHP ---
Pre-Procedural Eval Section A - 24 Hr Update-Section A only Date of Service: 01/06/24 The patient is an INPATIENT: No Changes since office visit: No Cold of Flu in the past 2 weeks, No New Medical Problems, No Changes in Medication and No Patient answered all questions The patient has been examined within 24 hours of the surgical procedure. The History & Physical has been completed within 30 days and I have reviewed it.: Yes Section B - Complete if H&P > 30 days Chief Complaint: Encounter for screening for malignant neoplasm of Allergies: Allergies Allergy/AdvReac Type Severity Reaction Status Date / Time No Known Allergies Allergy Verified 01/01/24 14:57 Plan I have reviewed the history and physical and performed a pertinent physical examination on my patient. No changes have occurred unless specified. Time Spent With Patient Time: Total time managing care of this patient today ____ minutes.
[2024-01-06 13:42] VITALS: BP 104/56; PULSE 59; RESP 15; TEMP 36.2; O2SAT 96
[2024-01-06 13:57] VITALS: BP 106/67; PULSE 62; RESP 16; TEMP 36.5; O2SAT 98
--- NOTE | 2024-01-06 14:32 | OP_ITS ---
DATE OF SERVICE: 01/06/2024 SURGEON: Yoseph Green MD INDICATIONS: Colon cancer screening. PREOPERATIVE DIAGNOSIS: POSTOPERATIVE DIAGNOSIS: PROCEDURE PERFORMED: Colonoscopy to the terminal ileum. ESTIMATED BLOOD LOSS: COMPLICATIONS: ANESTHESIA: Monitored anesthesia care. ASSISTANTS: SPECIMENS: DESCRIPTION OF PROCEDURE: History and Physical was performed. The risks and benefits of the procedure were explained to the patient and informed consent was obtained. The patient was placed in the left lateral decubitus position. A digital rectal exam was performed and was found to be normal. The Olympus pediatric video colonoscope was introduced into the rectum and advanced to the cecum. The cecum was identified by transillumination, palpation, and identification of ileocecal valve. Examination was performed and the scope was removed. He tolerated the procedure well and was returned to recovery area in stable condition. FINDINGS: The terminal ileum was not examined. The visualized colonic mucosa was normal. The quality of the prep was good. No polyps were identified. Retroflexed examination showed some small internal hemorrhoids. IMPRESSION: Normal colonoscopy. RECOMMENDATIONS: 1. Follow up as needed. 2. Repeat colonoscopy is recommended in 10 years for average risk individuals. MD KUSHAL Riggins/TANESHAL / [id number] MTDD
== END 2024-01-06 14:39 | disposition home or self-care (01) ==
PROVIDERS: PCP Internal Medicine; Visit Provider Internal Medicine Gastroenterology
PROC: 0DJD8ZZ Inspection of Lower Intestinal Tract, Via Natural or Artificial Opening Endoscopic (ICD-10-PCS; CPT 45378; principal; 2024-01-06 13:00)
DX: Z12.11 Encounter for screening for malignant neoplasm of colon (principal); K59.09 Other constipation; N40.0 Benign prostatic hyperplasia without lower urinary tract symptoms; N32.9 Bladder disorder, unspecified; N41.9 Inflammatory disease of prostate, unspecified; B18.2 Chronic viral hepatitis C; I86.1 Scrotal varices; E89.0 Postprocedural hypothyroidism; F11.11 Opioid abuse, in remission; Z79.899 Other long term (current) drug therapy
CPT/HCPCS: G0121; J2371; J2704

== ENCOUNTER 2024-05-04 15:00 | Outpatient (REF) | payer MEDICARE, MEDICAID, SELFPAY ==
[2024-05-04 16:38] LABS: TSH reflex Free T4 2.17 uIU/mL (0.32-4.0)
== END 2024-05-04 15:01 | disposition home or self-care (01) ==
LOC: HO.HHCL 15:00
PROVIDERS: Visit Provider Internal Medicine
DX: E03.9 Hypothyroidism, unspecified (principal)
CPT/HCPCS: 36415; 84443

== ENCOUNTER 2024-06-22 13:53 | Outpatient (REF) | payer MEDICARE, MEDICAID, SELFPAY ==
[2024-06-22 16:53] LABS: Prostate Specific Antigen 1.33 ng/mL (<0.05-4.0)
== END 2024-06-22 13:54 | disposition home or self-care (01) ==
LOC: HO.HHCL 13:53
PROVIDERS: Visit Provider Nurse Practitioner Family
DX: N40.0 Benign prostatic hyperplasia without lower urinary tract symptoms (principal); N32.89 Other specified disorders of bladder; Z12.5 Encounter for screening for malignant neoplasm of prostate
CPT/HCPCS: 36415; 84153

== ENCOUNTER 2024-07-04 14:24 | Outpatient (AMB) | payer MEDICARE, MEDICAID, SELFPAY ==
--- NOTE | 2024-07-04 14:36 | MHC.OFFVIS ---
Intake Visit Reasons: 6m/PSA/PVR Intake Note: Patient presents for follow up enlarged prostate and PVR Urology Medications: None Blood Thinners: none PVR: 24mls Acid Pump Operator Required: No Accompanied by: Self / Same As Patient Allergies No Known Allergies Allergy (Verified 07/04/24 14:55) Medication List - Last Reconciled 07/04/24 by FRAN No-KUSHAL ascorbic acid (vitamin C) (Vitamin C) 500 mg PO DAILY blood pressure test kit-large As directed cholecalciferol (vitamin D3) 25 mcg PO DAILY lactobacillus combination no.4 (Probiotic) 3,000 mmu cells PO DAILY levothyroxine 100 mcg PO DAILY@0600 multivitamin 1 tab PO DAILY omega-3 fatty acids 500 mg PO DAILY vitamin B complex 1 tab PO DAILY HPI Comments Details: Michael Dasilva is a pleasant 69 year-old male patient of Dr. Silvestre Talamantes. He has a past medical history of back pain, anxiety, depression, chronic hep C, history of heroin abuse in remission, and hypothyroidism. He presents to the office today for a follow up. In discussion with the patient today he reports to be doing and feeling well. He reports since his last office visit here approximately 6 months ago he has had no bothersome urinary issues or concerns. Recent PSA results reviewed with the patient today as noted and trended below. Previous workup has included a retroperitoneal ultrasound 11/18 noting bilateral kidneys with no calculi, lesions, and or hydronephrosis. The bladder is well distended. Bilateral ureteral jets are demonstrated. Pre void bladder volume is approximately 185 mL. Postvoid bladder volume is approximately 15 mL. The bladder wall thickness is 7 mm with some edematous changes noted. Prostate measures approximately 42 mL. Discussed at length bladder wall thickening and prostatomegaly. PSA and testosterone are as follows: PSAs 03/13 1.3, 09/17 1.8 % free PSA 22%, 06/18 1.3 Testosterone 03/13 678 Free testosterone 03/13 68.5 In office urinalysis results reviewed with the patient today. PVR 24 mL. Patient previously trialed Flomax however did not feel this was necessary as he did not feel any bothersome urinary issues. When asked he denies urinary urgency, urinary frequency, nocturia, incontinence, hematuria, dysuria, foul smelling urine, flank pain, fever, and or chills. He is happy with his current voiding parmaters. He otherwise offers no other issues or concerns at this time. [facility]LY [facility] Medical History Urinary frequency Bilateral hydrocele Encounter for screening colonoscopy Back pain Anxiety and depression Chronic viral hepatitis C History of heroin abuse Postablative hypothyroidism Surgical History Hx of hernia repair Hx of colonoscopy Hx of laparoscopy Hx of eye surgery Hx of Achilles tendon repair Hx of cervical spine surgery Hx of arthroscopy Hx of inguinal hernia surgery Family History Father No problems noted. Mother Emphysema lung Social History Household Members: None Alcohol intake: never Patient Tobacco Use Status: Never used Tobacco Substance Use Type: Heroin Current occupational status: retired Review of Systems Const All systems reviewed & are unremarkable except as noted in HPI and below Reports as per HPI Eyes Reports no additional complaints ENT Reports no additional complaints Card Reports no additional complaints Resp Reports no additional complaints GI Reports as per HPI Reports as per HPI Musc Denies no additional complaints Neuro Reports no additional complaints Psych Reports as per HPI Endo Reports as per HPI Ramesh/Lymph Reports no additional complaints Aller/Immun Reports no additional complaints Physical Exam Const General: cooperative, healthy appearing, comfortable, no acute distress, well developed, alert and awake Nutritional Appearance: average body habitus Orientation/consciousness: patient oriented x3 Limitations: no limitations HEENT Head: Yes normal to inspection, Yes normocephalic and Yes atraumatic Ears: hearing grossly normal bilaterally Eyes General: appearance normal, both eyes and all related structures Neck Neck: Yes normal visual inspection and Yes trachea midline Chest Chest palpation & inspection: normal inspection of the chest Resp Effort & Inspection: normal respiratory effort and able to speak in complete sentences Cardio Rate: regular rate GI Inspection: Yes normal to inspection General: Yes no CVA tenderness Back/Spine/Pelvis Back: no CVA tenderness Skin General skin exam: no rashes or lesions noted Neuro General: patient oriented x3 Extrem General: Yes normal to inspection Psych Appearance: grossly normal and well kempt Mental Status: mental status grossly normal Speech and movement: Normal speech and movement present and Clear speech present Affect: normal affect Attitude: cooperative Thought process: Normal thought process present Thought content: Normal thought content present Insight: Fair insight present (Psych) Judgement: Fair judgement present (Psych) Office Procedures Post Void Residual Post Residual Void Post Void Residual (PVR): 02420-Mojn Void Residual by ultrasound Results AMB Urinalysis, Automated UA Leukoctes 0 Soco/uL Last Edit by Watkins Hireprem on 07/04/24 14:40 UA Nitrite Last Edit by Watkins Hireprem on 07/04/24 14:40 UA Urobilinogen 0.2 mg/dL Last Edit by Accellion on 07/04/24 14:40 UA Protein 0 mg/dL Last Edit by Accellion on 07/04/24 14:40 UA pH 6.0 Last Edit by Watkins Hireprem on 07/04/24 14:40 UA Blood 0 Dereje/uL Last Edit by Accellion on 07/04/24 14:40 UA Specific [place] 1.005 Last Edit by Accellion on 07/04/24 14:40 UA Ketone Last Edit by Accellion on 07/04/24 14:40 UA Bilirubin 0 mg/dL Last Edit by Accellion on 07/04/24 14:40 UA Glucose 0 mg/dL Last Edit by Accellion on 07/04/24 14:40 Results Reviewed Results Reviewed: Laboratory Last Values Urine pH (Auto) 6.0 07/04/24 14:39 Specific [place] (Auto) 1.005 07/04/24 14:39 Urine Protein (Auto) 0 mg/dL 07/04/24 14:39 Glucose (UA)(Auto) 0 mg/dL 07/04/24 14:39 Urine Blood (Auto) 0 Dereje/uL 07/04/24 14:39 Urine Bilirubin (Auto) 0 mg/dL 07/04/24 14:39 Urine Urobilinogen (Auto) 0.2 mg/dL 07/04/24 14:39 Leukocyte Esterase (Auto) 0 Osco/uL 07/04/24 14:39 Assessment & Plan Assessment & Plan (1) Enlarged prostate: Code(s): N40.0 - Benign prostatic hyperplasia without lower urinary tract symptoms Category: Medical (2) Bladder wall thickening: Code(s): N32.89 - Other specified disorders of bladder Category: Medical Plan In office urinalysis results reviewed with today; as noted above. PVR 24mL. Patient currently denies any bothersome urinary issues or concerns. He reports be happy with current voiding parameters. Recent PSA results reviewed with the patient today; as noted above. Will continue with surveillance monitoring. Discussed bladder triggers/irritants. Will obtain PSA in 1 year Follow-up in 1 year with PSA and PVR to be completed prior; or sooner with any issues, concerns, and or questions. Orders: Orders AMB Post Void Residual by ultrasound Today N40.0 - Benign prostatic hyperplasia without lower urinary tract symptoms Prostate Specific Antigen 1 Year N40.0 - Benign prostatic hyperplasia without lower urinary tract symptoms AMB Urinalysis Automated Today Z13.9 - Encounter for screening, unspecified Patient Instructions: The patient had an opportunity to ask questions regarding the treatment plan. All questions were answered. Physical exam, labs, and imaging were discussed and reviewed in detail. As well as risks, benefits, and discussion of treatment choices. No major barriers to understanding were identified. The patient expressed understanding and agreement with the above treatment plan. The patient was made aware they should contact our office by phone for worsening of their current condition, the appearance of new symptoms, or with any questions or concerns. Compliance is encouraged with any medications and follow up testing that is ordered. It is a privilege to be allowed the opportunity to participate in? your urological care.? Again, if you have any questions or concerns If you have any questions or concerns please do not hesitate to contact me. The office is [phone]. This note is constructed using voice recognition software. While every effort has been made to ensure accuracy weigher production errors may have been included. Yours sincerely, GLORIA No Coding Level of Care Code Est Pt Level 3 (58230) Diagnoses Enlarged prostate N40.0 Bladder wall thickening N32.89 CPT Codes Post Residual Void - PVR CPT Code: 64579-Hkix Void Residual by ultrasound ([id number])
== END 2024-07-04 15:09 | disposition home or self-care (01) ==
PROVIDERS: PCP Internal Medicine; Visit Provider Nurse Practitioner Family
DX: N40.0 Benign prostatic hyperplasia without lower urinary tract symptoms (principal); N32.89 Other specified disorders of bladder; Z13.9 Encounter for screening, unspecified
CPT/HCPCS: 99213

== ENCOUNTER → 2024-07-04 14:24 | Outpatient (BNVA) | payer MEDICARE, MEDICAID, SELFPAY | PROVIDERS: PCP Internal Medicine; Visit Provider Nurse Practitioner Family | DX: N40.0 Benign prostatic hyperplasia without lower urinary tract symptoms (principal); N32.89 Other specified disorders of bladder | CPT/HCPCS: 51798; 81003; 99212 ==

== ENCOUNTER 2024-10-03 13:20 | Outpatient (REF) | payer MEDICARE, MEDICAID, SELFPAY ==
[2024-10-03 16:58] LABS: MANUAL DIFF FLAG NO
[2024-10-03 17:01] LABS: Basophils Percent Auto 0.2 % (0-2); Hematocrit 39.4 % (42.0-52.0); Hemoglobin 13.1 g/dl (14.0-18.0); Imm Gran Abs Auto 0.05 X10*3/uL (0.00-0.03); Lymphocytes Absolute Auto 1.2 X10*3/uL (1.2-4.9); Lymphocytes Percent Auto 24.5 % (20-40); Mean Corpuscular HGB Conc 33.2 g/dl (31.0-36.0); Mean Corpuscular Hemoglobin 29.6 pg (27.0-33.0); Mean Corpuscular Volume 88.9 fL (80.0-98.0); Mean Platelet Volume 9.7 fL (9.4-12.4); Monocytes Absolute Auto 0.5 X10*3/uL (0.1-1.2); Monocytes Percent Auto 9.5 % (2-11); Neutrophils Absolute Auto 3.1 x10*3/uL (2.0-8.3); Neutrophils Percent Auto 64.8 % (45-73); Platelet Count 241 X10*3/uL (160-400); Red Blood Count 4.43 X10*6/uL (4.60-5.80); Red Cell Distribution Width 13.4 % (11.0-16.0); White Blood Count 4.8 X10*3/uL (4.8-10.8)
[2024-10-03 17:27] LABS: Alanine Aminotransferase 37 U/L (0-40); Albumin Level 4.3 g/dL (3.5-5.0); Alkaline Phosphatase 47 U/L (39-117); Anion Gap 8 (12-20); Aspartate Amino Transferase 36 U/L (5-37); Bilirubin Total 0.4 mg/dL (0.0-1.0); Blood Urea Nitrogen 15 mg/dL (9-16); Calcium 9.5 mg/dL (8.4-10.2); Carbon Dioxide 28 mmol/L (22-29); Chloride 106 mmol/L (96-108); Cholesterol 147 mg/dL (<200); Estimated Glomerular Filt Rate > 60; Glucose Random 104 mg/dL (60-115); HDL Cholesterol 49 mg/dL (>40); Iron 88 mcg/dL (45-160); LDL Cholesterol Calculated 71 mg/dL (<100); Percent Iron Saturation 29 % (15-50); Potassium 4.7 mmol/L (3.3-5.1); Sodium 137 mmol/L (135-145); Total Iron Binding Capacity 304 mcg/dL (228-428); Total Protein 6.7 g/dL (6.5-8.0); Triglycerides 138 mg/dL (<150); Unsaturated Iron Binding 216 ug/dL
[2024-10-03 17:45] LABS: Ferritin 149 ng/mL (20-250); TSH reflex Free T4 2.21 uIU/mL (0.32-4.0)
[2024-10-04 08:33] LABS: HIV AB/AG Nonreactive (Nonreactive); HIV Num 1 0.13 S/CO (0.00-0.99); ~HepC Num1 15.42 S/CO (0.00-0.79); ~Hepatitis C Antibody Reactive (Nonreactive)
--- OUTSIDE RECORDS SUMMARY | 2024-10-05 15:43 | XMS_ITS ---
Author Organization [facility] Address [address] [place] [address] Care Team Providers Care Gang Bore Operator Name Role Phone Hilda Rivers M.D. Primary Care Provider Yoseph Neil Jr Unavailable [phone] REASON FOR VISIT screening, intermittent constipation MEDICATIONS Medication SIG (Take, Route, Frequency, Duration) Notes [...] Active Encounters Encounter Location Date Provider Diagnosis [facility] [place] [address] [place], [place] [phone] 01/06/2024 Yoseph Green Jr Encounter for screening colonoscopy Z12.11 ASSESSMENTS Encounter Date Diagnosis Assessment Notes Treatment Notes Treatment Clinical Notes 01/06/2024 Encounter for screening colonoscopy (ICD-10 - Z12.11) PLAN OF TREATMENT No Information
--- OUTSIDE RECORDS SUMMARY | 2024-10-05 15:44 | XMS_ITS ---
Author Organization [facility] Address [address] [place] [address] Care Team Providers Care Emt Paramedic Name Role Phone Hilda Rivers M.D. Primary Care Provider Yoseph Neil Jr Unavailable [phone] ALLERGIES No Known Allergies REASON FOR VISIT Patient presents today for a screening colonoscopy MEDICATIONS Medication SIG (Take, Route, Frequency, Duration) Notes Start Date End Date Status Vitamin C Active Vitamin D Active Multivitamin - 1 tablet Orally Once a day for 30 day(s) Active Vitamin B Complex Ac tive Probiotic Active Tamsulosin HCl 0.4 MG Oral for 30 Active Levothyroxine Sodium 100 MCG TAKE 1 TABL ET BY MOUTH EVERY DAY Oral for 90 Active SOCIAL HISTORY Tobacco Use: Social History Observation Description Date Details (start date - stop date) Never Smoker NA - NA Sex Assigned At : Social History Observation Description Sex Assigned At Unknown Tobacco Use/Smoking Question Answer Notes Patient is a nonsmoker Alcohol Screen Question Answer Notes Did you have a drink contain ing alcohol in the past year? Yes How often did you have a dri nk containing alcohol in the past year? Never (0 point) How many drinks did you have on a typical day when you were drinking in the past year? 1 or 2 drinks (0 point) Points 0 Interpretation Negative PROBLEMS Problem Type ICD Code Onset Dates Problem Status W/U Status Risk SNOMED Code Notes Problem Colon cancer screening (Z12.11) Active confirmed 307117189 Problem Intermittent constipation (K59.09) Active confirmed 16971542 VITAL SIGNS BMI 23.02 kg/m2 12/10/2023 Blood pressure systolic 00 mm Hg 12/10/19 24 Blood pressure diastolic 00 mm Hg 024 Height 5 ft 7 in in 12/10/2023 Temperature 97.8 degrees Fahrenheit 12/10/19 24 Weight 147 lbs 12/10/2023 Encounters Encounter Location Date Provider Diagnosis [facility] [address] [place] [address] 12/10/2023 Yoseph Green Jr Colon cancer screening Z12.11 and Intermittent constipation K59.09 ASSESSMENTS Encounter Date Diagnosis Assessment Notes Treatment Notes Treatment Clinical Notes 12/10/2023 Colon cancer screening (ICD-10 - Z12.11) 12/10/2023 Intermittent constipation (ICD-10 - K59.09) Colonoscopy material was printed PLAN OF TREATMENT Treatment Notes Assessment Notes Intermittent constipation Colonoscopy ma carisa was printed Future Test Test Name Order Date COLONOSCOPY 12/10/2023 Next Appt Details Follow Up: 1 Year, Reason: Progress Notes * Examination Category Sub-Category Detail Notes General Examination GENERAL APPEARANCE: in no ac yuhaaviatam distress HEAD: normocephalic EYES: sclera non-icteric NECK/THYROID: no lymphadenopathy HEART: S1, S2 normal, no mu rmurs CHEST: normal shape and exp ansion LUNGS: clear to auscultatio n bilaterally ABDOMEN: soft, nontender, non distended, bowel sounds present, no organomegaly SKIN: anicteric EXTREMITIES: no clubbing, cyanosi s, or edema PSYCH: cognitive function i ntact ORAL CAVITY: mucosa moist
--- OUTSIDE RECORDS SUMMARY | 2024-10-05 15:44 | XMS_ITS | Patient Health Record ---
Author Organization [facility] Address [address] [place] [address] Care Team Providers Care Leaf Sucker Operator Name Role Phone Hilda Rivers M.D. Primary Care Provider Yoseph Neil Jr Unavailable ALLERGIES No Known Allergies REASON FOR REFERRAL No Information MEDICATIONS Medication SIG (Take, Route, Frequency, Duration) Notes Start Date End Date Status Vitamin D Active Probiotic Active Vitamin C Active Multivitamin - 1 tablet Orally Once a day for 30 day(s) Active Vitamin B Complex Ac tive Levothyroxine Sodium 100 MCG TAKE 1 TABL ET BY MOUTH EVERY DAY Oral for 90 Active Tamsulosin HCl 0.4 MG Oral for 30 Active SOCIAL HISTORY Tobacco Use: Social History [...] Problem Colon cancer screening (Z12.11) Active confirmed [id number] Problem Intermittent constipation (K59.09) Active confirmed 21816167 VITAL SIGNS Temperature 97.8 degrees Fahrenheit 12/10/2023 Blood pressure diastolic 00 mm Hg 12/10/2023 Height 5 ft 7 in in 12/10/2023 Blood pressure systolic 00 mm Hg 12/10/2023 Weight 147 lbs 12/10/2023 BMI 23.02 kg/m2 12/10/2023 Encounters Encounter Location Date Provider Diagnosis [facility] [place] [address] [place], [place] [phone] 01/06/2024 Yoseph Green Jr Encounter for screening colonoscopy Z12.11 [facility] [address] [place] [address] 12/10/2023 Yoseph Green Jr Colon cancer screening Z12.11 and Intermittent constipation K59.09 ASSESSMENTS Encounter Date Diagnosis Assessment Notes Treatment Notes Treatment Clinical Notes 01/06/2024 Encounter for screening colonoscopy (ICD-10 - Z12.11) 12/10/2023 Colon cancer screening (ICD-10 - Z12.11) 12/10/2023 Intermittent constipation (ICD-10 - K59.09) Colonoscopy material was printed PLAN OF TREATMENT Future Test Test Name Order Date COLONOSCOPY 12/10/2023 Insurance Providers Payer Name Payer Address Payer Phone Subscriber Number Group Number Insured Name Patient Relationship to Insured Coverage Start Date Coverage End Date MEDICARE OF [place] [address] [place] [id number] GOLDIE BAKER Self - patient is the insured MEDICAID OF [facility] [address] [place] [address] [phone] [id number] GOLDIE BAKER Self - patient is the insured MEDICAL (GENERAL) HISTORY Medical History History ICD Code BARNARD with post-ablative hypothyroidism BPH with 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
[2024-10-07 14:13] LABS: HCV Log PCR <1.18 NOT DETECTED Log IU/mL (NOT DETECTED); HepC Viral Load <15 NOT DETECTED IU/mL (NOT DETECTED)
== END 2024-10-03 13:21 | disposition home or self-care (01) ==
LOC: HO.HHCL 13:20
PROVIDERS: Visit Provider Internal Medicine
DX: D64.9 Anemia, unspecified (principal); E03.9 Hypothyroidism, unspecified; E78.5 Hyperlipidemia, unspecified
CPT/HCPCS: 36415; 80053; 80061; 82728; 83540; 84443; 85025; 86803; 87389; 87522

== ENCOUNTER 2024-12-07 15:22 | Outpatient (REF) | payer MEDICARE, MEDICAID, SELFPAY ==
[2024-12-07 16:13] LABS: MANUAL DIFF FLAG NO
--- OUTSIDE RECORDS SUMMARY | 2024-12-07 16:17 | XMS_ITS | Encounter Summary ---
Author Organization [employer] Address [address] [place] [address] Care Team Providers Care Dupligraph Operator Name Role Phone Hilda Hill MD Primary Care Provide r Reason for Visit * Reason Comments Dental Exam Filling came off [place] Encounter Details Date Type Department Care Team (Late st Contact Info) Description 11/18/2024 3:30 PM EST Office Visit [facility] ADULT [facility]AL [address] [place] [address] Myron Lombardi, DMD [address] [place] [address] Social History Tobacco Use Types Packs/Day Years Used Date Smoking Tobacco: Never Passive Smoke Exposure: Never Smokeless Tobacco: Never Alcohol Use Standard Drinks/Week Comments Yes 0 (1 standard drink = 0.6 oz pur e alcohol) Depression Answer Date Recorded Patient Health Questionnaire-9 Score 0 02/01/2024 Patient Health Questionnaire-9 Score 0 02/01/2024 Last PHQ-9: Questionnaire Data Not on file 0 02/01/2024 Housing Stability Answer Date Recorded What is your housing situation today? I have brittany alcala 09/01/[address] you li ve. Do you have problems with any of the following? None of the above 09/01/2024 Food Insecurity Answer Date Recorded Within the past 12 months, y ou worried that your food would run out before you got money to buy more: Never True 09/01/2024 Within the past 12 months,th e food you bought just didn't last and you didn't have enough money to get more: Never True 04/2024 Transportation Answer Date Recorded In the past 12 months, has l ack of transportation kept you from medical appts, meetings, work or from getting things needed for daily living? No 09/01/2024 Utilities Answer Date Recorded In the past 12 months, has t he electric, gas, oil or water company threatened to shut off services in your home? No 09/01/2024 Depression Answer Date Recorded Patient Health Questionnaire-2 Score 0 02/01/2024 Internet Access Answer Date Recorded Internet Access Q1 Yes 09/01/2024 Internet Access Q2 Not on file 09/01/2024 Sex and Gender Information Value Date Recorded Sex Assigned at Male 08/25/2022 10:16 AM EDT Legal Sex Male 10:16 AM EDT Gender Identity Male 08/25/2022 10:16 AM EDT Sexual Orientation Choose not to disclose 2021 10:16 AM EDT documented as of this encounter Progress Notes * Myron Lombardi DMD - 11/18/2024 3:30 PM EST C/C: filling came out #24 [place]: composite#24 Cosme documented in this encounter Plan of Treatment Upcoming Encounters Date Type Department Care Team (Late st Contact Info) Description 12/22/2024 9:30 AM EST Office Visit [facility] ADULT DENTAL [address] [place] [id number] Myron Lombardi DMD [address] [place] [address] 01/30/2025 1:00 PM EDT Office Visit [facility] ADULT D[facility]AL [address] [place] [address] KaleighPhoebe cotter [address] [place] [address] Scheduled Orders Name Type Priority Associated Diagnoses Orde r Schedule 24 DIFL 24 DIFL RESIN-BASED COMPOSITE - 4 OR MORE SURFACES (ANTERIOR) Dental Routine [address] arting 11/18/2024 documented as of this encounter Procedures Procedure Name Priority Date/Time Associated Diagnosis Comments LIMITED ORAL EVALUATION - PROBLEM FOCUSED Routine 11/18/2024 3:30 PM EST INTRAORAL - PERIAPICAL FIRST RADIOGRAPHIC IMAGE Routine 11/18/2024 3:30 PM EST INTRAORAL - PERIAPICAL EACH ADDITIONAL RADIOGRAPHIC IMAGE Routine 11/18/2024 3:30 PM EST ADJUNCTIVE GENERAL SERVICES - PROFESSIONAL VISITS - CASE PRESENTATION, SUBSEQUENT TO DETAILED AND EXTENSIVE TREATMENT PLANNING Routine 11/18/2024 3:30 PM EST 18 EXTRACTION Routine 11/18/2024 12:00 AM EST 2 EXTRACTION Routine 11/18/2024 12:00 AM EST documented in this encounter Visit Diagnoses Not on filedocumented in this encounter Additional Health Concerns Assessment Noted Time PHQ-9 Depression Total Score: 0 02/01/20 24 10:03 AM EDT documented as of this encounter Care Teams Dupligraph Operator Relationship Specialty Start Date End Date Hilda Hill MD [address] [place] [id number] PCP - General Family Medicine 09/03/18 documented as of this encounter
--- OUTSIDE RECORDS SUMMARY | 2024-12-07 16:17 | XMS_ITS | Encounter Summary ---
Author Organization [employer] Address [address] [place] [address] Care Team Providers Care It Solutions Sales Consultant Name Role Phone Hilda Hill MD Primary Care Provide r Encounter Details Date Type Department Care Team (Latest Contact Info) Description 06/16/2022 Abstract [facility] CONVERSIONS Dental, Provider, DDS Social History Tobacco Use Types Packs/Day Years Used Date Smoking Tobacco: Never Assessed Sex and Gender Information Value Date Recorded Sex Assigned at Male 08/25/2022 10:16 AM EDT Legal Sex Male 10:16 AM EDT Gender Identity Male 08/25/2022 10:16 AM EDT Sexual Orientation Choose not to disclose 2021 10:16 AM EDT documented as of this encounter Plan of Treatment Upcoming Encounters Date Type Department Care Team (Late st Contact Info) Description 12/22/2024 9:30 AM EST Office Visit [facility] ADULT DENTAL [address] [place] [address] Myron Lombardi DMD [address] [place] [address] 01/30/2025 1:00 PM EDT Office Visit [facility] ADULT DENTAL [address] [place] [address] Phoebe Farris [address] [place] [address] documented as of this encounter Visit Diagnoses Not on filedocumented in this encounter Care Teams It Solutions Sales Consultant Relationship Specialty Start Date End Date Hilda Hill MD [address] [place] [address] PCP - General Family Medicine 09/03/18 documented as of this encounter
--- OUTSIDE RECORDS SUMMARY | 2024-12-07 16:17 | XMS_ITS | Encounter Summary ---
Author Organization [employer] Address [address] [place] [address] Care Team Providers Care Vacuum Applicator Operator Name Role Phone Hilda Hill MD Primary Care Provide r Reason for Visit * Reason Onset Date Comments Call Back Request 11/18/2023 Encounter Details Date Type Department Care Team ([facility] st Contact Info) Description 11/18/2023 Telephone [facility] [address] [place] [address] Hilda Hill MD [address] [place] [address] Call Back Request Social History Tobacco Use Types Packs/Day Years Used Date Smoking Tobacco: Never Smokeless Tobacco: Never Alcohol Use Standard Drinks/Week Comments Yes 0 (1 standard drink = 0.6 oz pur e alcohol) Housing Stability Answer Date Recorded What is your housing situation today? I have brittany alcala 08/15/[address] you li ve. Do you have problems with any of the following? None of the above 08/15/2023 Food Insecurity Answer Date Recorded Within the past 12 months, y ou worried that your food would run out before you got money to buy more: Never True 08/15/2023 Within the past 12 months,th e food you bought just didn't last and you didn't have enough money to get more: Never True Transportation Answer Date Recorded In the past 12 months, has l ack of transportation kept you from medical appts, meetings, work or from getting things needed for daily living? No 08/15/2023 Utilities Answer Date Recorded In the past 12 months, has t he electric, gas, oil or water company threatened to shut off services in your home? No 08/15/2023 Sex and Gender Information Value Date Recorded Sex Assigned at Male 08/25/2022 10:16 AM EDT Legal Sex Male 10:16 AM EDT Gender Identity Male 08/25/2022 10:16 AM EDT Sexual Orientation Choose not to disclose 2021 10:16 AM EDT documented as of this encounter Miscellaneous Notes * Telephone Encounter - Janine Nevarez RN - 11/18/2023 2:53 PM EST TC placed to pt [phone] in regards to ortho referral. Pt reports he was referred to ortho at [facility] however [facility] ortho called pt and advised him he had to be seen at [facility] because that is where he was seen in the past. RN reviewed chart notes and it appears pt is scheduled w/ [facility] for 12/03/23 at 2:45pm. Pt has written this appt down and confirmed date and time w/ RN. Pt also asking regarding podiatry referral. Pt reports he received a letter today in the mail in regards to podiatry referral however dx on referral letter is (Chronic pain of both knees). RN confirmed this is accurate in letter tab of chart review however when PCP placed referral it was w/ dx of Right foot pain. Please review and update referral if needed for pt to be seen for correct concern. Thank you! * Telephone Encounter - Arabella Means - 11/18/2023 2:24 PM EST Tc from pt requesting to speak with a nurse in regards to clarifying referral pt has requested. Please contact pt at [phone] documented in this encounter Plan of Treatment Upcoming Encounters Date Type Department Care Team (Late st Contact Info) Description 12/22/2024 9:30 AM EST Office Visit [facility]ULT D[facility] [address] [place] [address] Myron Lombardi, DMD [address] [place], [place] [phone] 01/30/2025 1:00 PM EDT Office Visit [facility] ADULT D[facility] [address] [place], [place] [phone] Phoebe Farris [address] [place], [place] [phone] documented as of this encounter Visit Diagnoses Not on filedocumented in this encounter Care Teams Vacuum Applicator Operator Relationship Specialty Start Date End Date Hilda Hill MD [address] [place], [place] [phone] PCP - General Family Medicine 09/03/18 documented as of this encounter
--- OUTSIDE RECORDS SUMMARY | 2024-12-07 16:17 | XMS_ITS | Encounter Summary ---
Author Organization [employer] Address [address] [place] [address] Care Team Providers Care Semiconductor Equipment Technician Name Role Phone Hilda Hill MD Primary Care Provide r Encounter Details Date Type Department Care Team (Latest Contact Info) Description 12/07/2024 Travel Social History Tobacco Use Types Packs/Day Years [...] Description 12/22/2024 9:30 AM EST Office Visit [facility] ADULT DENTAL [address] [place] [address] Myron Lombardi DMD [address] [place] [address] 01/30/2025 1:00 PM EDT Office Visit [facility] ADULT DENTAL [address] [place] [address] Phoebe Farris [address] [place] [address] documented as of this encounter Visit Diagnoses Not on filedocumented in this encounter Additional Health Concerns Assessment Noted Time PHQ-9 Depression Total Score: 0 02/01/20 24 10:03 AM EDT documented as of this encounter Care Teams Semiconductor Equipment Technician Relationship Specialty Start Date End Date Hilda Hill MD [address] [place] [address] PCP - General Family Medicine 09/03/18 documented as of this encounter
--- OUTSIDE RECORDS SUMMARY | 2024-12-07 16:17 | XMS_ITS | Clinical Summary ---
Author Organization [employer] Address [address] [facility] [address] [place] [address] Care Team Providers Care Bus Person Name Role Phone Hilda Hill MD Primary Care Provide r Allergies No known active allergies Medications * This document contains information received from the source organization and may not represent a complete record from that organization. cholecalciferol (Vitamin D-3) 25 MCG (1000 UT) tablet Take 1 tablet by mouth 1 (one) time each day. 1 Active Multiple Vitamins-Minerals (Multivitamin Adult) chewable tablet Chew 1 tablet 1 (one) time each day. 1 Active omega-3 (Fish Oil) 500 MG capsule Take 1 capsule by mouth 1 (one) time each day. 1 Active VITAMIN B COMPLEX-C PO Take 1 tablet by mouth 1 (one) time each day. 1 Active Ascorbic Acid (vitamin C) 1000 MG tablet Take 1 tablet by mouth 1 (one) time each day. 9 Active levothyroxine (Synthroid, Levoxyl) 100 MCG tablet TAKE 1 TABLET BY MOUTH EVERY DAY 90 tablet 1 4 Active docusate sodium (Colace) 100 MG capsuleIndication s:Constipation, unspecified constipation type Take 1 capsule (100 mg) by mouth 2 times daily for 10 days. 20 capsule 5 12/17/19 25 Active Active Problems Problem Noted Date Diagnosed Date Constipation 12/07/2024 Anemia 09/09/2024 Assessment & Plan (12/07/2024 4:01 PM EST): Anemia workup was ordered today Patient will be contacted with results Skin cancer screening 09/09/2024 Assessment & Plan (09/09/2024 2:39 PM EST): Patient referred to dermatology Anxiety 06/03/2024 Primary insomnia 06/02/2024 Assessment & Plan (06/02/2024 11:58 AM EDT): Sleep hygiene counseling done today Patient will do over the counter melatonin 2mg at bed time Patient declines other medications Anxiety with depression 06/02/2024 Assessment & Plan (09/09/2024 2:38 PM EST): Counseling done F/u with therapist RTC 6 months Assessment & Plan (06/02/2024 11:58 AM EDT): Counseling done I will refer patient to [facility] Patient declines medications Acute pain of left knee 11/13/2023 Chronic pain of both knees 11/13/2023 Right foot pain 11/13/2023 Vasovagal syncope 11/13/2023 Assessment & Plan (02/01/2024 11:19 AM EDT): -episodes of syncope may be due to vasovagal response -patient advised to increase consumption of water during the day. Only sip water at night to help with dry mouth -slow position changes advised -advised use of urinal for night time voiding needs, but patient declined. States he would sit to void at night to prevent further falls. -patient taught how to evaluate pulse as his presentation may be due to bradycardia -in office orthostatic pressure: lying 132/76 pule 57; sittin/90 pulse 62; standing 151/86 pulse 76 -will refer to cardiology if symptoms persist despite initiation of interventions mentions above -elevated in office BP readings, patient reports home readings 120's/70's -follow-up 3 months or sooner with another occurrence. Assessment & Plan (11/13/2023 1:55 PM EST): Likely vasovagal syncope after urination, but I will continue to monitor I instructed patient to report back to me if similar episodes happen, patient will like to put a hold for now for cardiology referral I advise to maintain hydration and change position slowly Acquired hypothyroidism 11/12/2023 11/12/19 24 Assessment & Plan (05/04/2024 2:46 PM EDT): I will re-check his TSH Chronic low back pain 11/12/2023 11/12/2023 Left testicular pain 11/12/2023 11/12/2023 Mixed anxiety and depressive disorder 11/12/2023 11/12/2023 Assessment & Plan (05/04/2024 2:47 PM EDT): Counseling done [facility] referral declines medications Seborrheic dermatitis 11/12/2023 11/12/2023 Ulcer of skin of face 11/12/2023 11/12/2023 Need for assistance with personal care 11/12/2023 Abnormal PSA 09/14/2023 Dyslipidemia 09/14/2023 Assessment & Plan (09/09/2024 2:39 PM EST): Today extensive discussion was done about life style modifications I advise healthy diet (low calorie) and cardiovascular exercise Assessment & Plan (06/02/2024 11:59 AM EDT): Patient declines pravastatin, he will only take omega 3 and reports he is adherent to a very healthy diet Colon cancer screening 09/14/2023 Scalp lesion 08/28/2023 Urinary frequency 08/28/2023 Encounter for preventive care 08/28/2023 Assessment & Plan (08/28/2023 2:00 PM EDT): See HPI Basal cell carcinoma (BCC) of scalp 08/28/2023 Assessment & Plan (05/04/2024 2:46 PM EDT): Patient will f/u with surgery regarding concerns Elevated blood pressure reading 08/28/2023 Assessment & Plan (08/28/2023 1:59 PM EDT): Patient checks his BP at home all the time and is 120s/70-80s this is most likely white coat syndrome I advise low Na diet Generalized gingival recession 03/05/2023 Dental plaque 03/05/2023 Knee pain 04/11/2019 11/12/2023 Backache 02/12/2018 11/12/2023 Chronic hepatitis C 02/12/2018 11/12/2023 Opioid abuse 02/12/2018 11/12/2023 Seasonal allergic rhinitis 02/12/201811/12 Resolved Problems Problem Noted Date Diagnosed Date Resolved Date Scalp decubitus ulcer 08/28/20232022 Encounters Date Type Department Care Team Description 12/07/2024 2:45 PM EST Office Visit [facility] [address] [place] [phone] Hilda Hill MD Anemia, unspecified type (Primary Dx); Constipation, unspecified constipation type 12/07/2024 Travel 11/24/2024 Patient Outreach [facility] [address] [place] [address] Hilda Hill MD Pre-visit Planning ((Unable to reach for PVP screening, LVM)) 11/18/2024 3:30 PM EST Office Visit [facility] [address] [place] [phone] Myron Lombardi DMD 10/03/2024 Orders Only [facility] [address] [place] [phone] Hilda Hill MD 09/09/2024 2:00 PM EST Office Visit [address] [address] Hilda Hill MD Anxiety with depression (Primary Dx); Acquired hypothyroidism; Anemia, unspecified type; Dyslipidemia; Skin cancer screening; Encounter for immunization 09/09/2024 Travel from Last 3 Months Immunizations Name Administration Dates Next Due Hep A, ped/adol, 2 dose 08/24/2003,02/08/2003 Influenza High-dose Quadriva lent Preservative Free 08/28/2023,09/02/2022 Influenza injectable quadriv alent IIV4 with preservative 09/25/2017,07/25/2016,08/27/2015 Influenza injectable quadriv alent preservative free 10/04/2021,10/05/2018,12/01/2014 Influenza, High Dose Seasona l, Preservative Free 09/09/2024,08/19/2019 Influenza, Split (incl. navneet fied surface antigen) 08/19/2013 Moderna Covid-19 Vaccine 12+ 06/04/2022 Pfizer Covid-19 Vaccine 12+ 09/09/2024,,09/02/2022 Pfizer Covid-19 Vaccine 12+ Bivalent 09/02/2022 Pneumococcal Conjugate PCV 20 08/28/2023 Tdap 03/16/2019,06/26/2015 Zoster, Recombinant 11/10/2023,09/07/2023 Zoster, live 11/28/2016 Social History Tobacco Use Types Packs/Day Years Used Date Smoking Tobacco: Never Passive Smoke Exposure: Never Smokeless Tobacco: Never Tobacco Cessation:Counseling Given: Not Answered Alcohol Use Standard Drinks/Week Comments Yes 0 [...] not to disclose 2021 10:16 AM EDT Last Filed Vital Signs Vital Sign Reading Time Taken Comments Blood Pressure 134/72 12/07/2024 3:06 PM EST Pulse 66 12/07/2024 2:39 PM EST Temperature 35.8 ??C (96.4 ??F) 12/07/2024 2:39 PM ES T Respiratory Rate 16 12/07/2024 2:39 PM EST Oxygen Saturation 98% 02/01/2024 10:01 AM EDT Inhaled Oxygen Concentration - - Weight 66.4 kg (146 lb 6.4 oz) 12/07/2024 2:39 P M EST Height 170.2 cm (5' 7 ) 12/07/2024 2:39 PM EST Body Mass Index 22.93 12/07/2024 2:39 PM EST Plan of Treatment Upcoming Encounters Date Type Department Care Team (Late st Contact Info) Description 12/22/2024 9:30 AM EST Office Visit [facility] [address] [place] [address] Myron Lombardi DMD [address] [place] [address] 01/30/2025 1:00 PM EDT Office Visit [facility] [address] [place] [address] Kaleigh, Phoebe [address] [place] [address] Health Maintenance Due Date Last Done Comments CT Colonography 1953 FIT DNA/Cologuard 1955 FIT 1955 FOBT 1955 Sigmoidoscopy 1955 Hepatitis A Vaccines (1 of 2 - Risk 2-dose series) 02/14/1972 08/24/2003, 02/08/2003 Hepatitis B Vaccines (1 of 3 - Risk 3-dose series) 2013 RSV Patients and Patients Aged 60 years or older (1 - Risk 60-74 years 1-dose series) 2013 Colonoscopy 03/31/2024 03/31/2023 Colorectal Cancer Screening 03/31/2024 Dental Oral Exam 11/28/2024 05/27/2024, , 06/16/2022 Dental Prophylaxis 01/28/2025 07/29/2024, 1 11/16/2022, 03/05/2023 Depression Screening 01/31/2025 02/01/2024, 02/01/20 24 Derm Melanoma Skin Check 03/09/2025 09/09/2024, 08/26 Dental X-Ray: Bitewings 07/09/2025 07/08/20 24, 05/27/2024, 09/16/2023, Additional history exists SDOH Screening 09/01/2025 09/01/2024 Alcohol/Substance Use Screening 09/09/2025 09/09/2024 Tobacco Screening 12/07/2025 12/07/2024 Dental X-Ray: Full Mouth 09/17/2026 09/16/2023, 05/26 DTaP/Tdap/Td Vaccines (3 - Td or Tdap) 03/16/2029 03/16/2019, 06/26/2015 Lipid Panel 10/03/2029 10/03/2024, 11/27, 09/04/2023, Additional history exists Pneumococcal Vaccine: 50+ Years Completed 08/28/2023 Zoster Vaccines Completed 11/10/2023, 08/26, 11/28/2016 COVID-19 Vaccine Completed 09/09/2024, , 09/02/2022, Additional history exists Influenza Vaccine Completed 09/09/2024, , 09/02/2022, Additional history exists Anal Pap Discontinued HIB Vaccines Aged Out No longer eligi ble based on patient's age to complete this topic HPV Vaccines Aged Out No longer eligi ble based on patient's age to complete this topic IPV Vaccines Aged Out No longer eligi ble based on patient's age to complete this topic Meningococcal Vaccine Aged Out No tunde tee eligible based on patient's age to complete this topic RSV under 20 months Aged Out No longe r eligible based on patient's age to complete this topic Rotavirus Vaccines Aged Out No longer eligible based on patient's age to complete this topic Procedures Procedure Name Priority Date/Time Associated Diagnosis Comments ADJUNCTIVE GENERAL SERVICES - PROFESSIONAL VISITS - CASE PRESENTATION, SUBSEQUENT TO DETAILED AND EXTENSIVE TREATMENT PLANNING Routine 11/18/2024 3:30 PM EST INTRAORAL - PERIAPICAL EACH ADDITIONAL RADIOGRAPHIC IMAGE Routine 11/18/2024 3:30 PM EST INTRAORAL - PERIAPICAL FIRST RADIOGRAPHIC IMAGE Routine 11/18/2024 3:30 PM EST LIMITED ORAL EVALUATION - PROBLEM FOCUSED Routine 11/18/2024 3:30 PM EST 18 EXTRACTION Routine 11/18/2024 12:00 AM EST 2 EXTRACTION Routine 11/18/2024 12:00 AM EST HEPATITIS C VIRAL RNA, QUANTITATIVE, REAL-TIME PCR Routine 10/03/2024 1:22 PM EST IRON AND TOTAL IRON BINDING CAPACITY Routine 10/03/2024 1:22 PM EST Anemia, unspecified type FERRITIN Routine 10/03/2024 1:22 PM EST Anemia, unspecified type TSH W/REFLEX TO FT4 Routine 10/03/2024 1 :22 PM EST Acquired hypothyroidism LIPID PANEL, STANDARD Routine 10/03/2024 1:22 PM EST Dyslipidemia HEPATITIS C AB W/REFL TO HCV RNA, QN, PCR Routine 10/03/2024 1:22 PM EST Anemia, unspecified type HIV 1/2 ANTIGEN/ANTIBODY, FOURTH GENERATION W/RFL Routine 10/03/2024 1:22 PM EST Anemia, unspecified type COMPREHENSIVE METABOLIC PANEL Routine 10/03/2024 1:22 PM EST Anemia, unspecified type CBC WITH AUTO DIFFERENTIAL Routine 10/03/2024 1:22 PM EST Anemia, unspecified type PROPHYLAXIS - ADULT Routine 07/29/2024 2 :00 PM EDT Dental plaque BITEWING - SINGLE RADIOGRAPHIC IMAGE Routine 07/08/2024 10:00 AM EDT Closed fracture of tooth, initial encounter PERIODIC ORAL EVALUATION - ESTABLISHED PATIENT Routine 05/27/2024 11:00 AM EDT DIAGNOSTIC - DIAGNOSTIC IMAGING - INTRAORAL - COMPREHENSIVE SERIES OF RADIOGRAPHIC IMAGES Routine 09/16/2023 2:00 PM EST Generalized gingival recession Dental plaque HM COLONOSCOPY Routine 03/31/2023 1:12 PM EDT from Last 3 Months or Most Recently Relevant to Health Maintenance Results * TSH with Reflex to Free T4 (10/03/2024 1:22 PM EST) Pathologist [facility] TSH reflex Free T4 2.21 0.32 - 4.0 uIU/mL [facility] Blood Venous blood specimen / Unknown 10/03/2024 1:22 PM EST 10/03/2024 4:52 PM EST Hilda Talamantes MD LAB BLOOD ORDERABLES Final Result Performing Organization Address [facility] [[email or web address]] Co de Phone Number [facility] [address] [place] [phone] * Hepatitis C Viral RNA, Quantitative, Real-Time PCR (10/03/2024 1:22 PM EST) [facility] Hepatitis C Viral Load <15 NOT DETECTED NOT DETECTED IU/mL [facility] HCV Log PCR <1.18 NOT DETECTED NOT DETECTED Log IU/mL [facility] Comment:For additional infor matmarry, please refer [email or web address].[employer]/faq/BRB54j4(This link is being provided for informational/educational purposes only.)THIS TEST WAS PERFORMED AT:[employer] [place] [phone] MONIQUE MD 10/03/2024 1:22 PM EST 10/04/2024 10:23 AM EST Hilda Talmaantes MD LAB BLOOD ORDERABLES Final Result Performing Organization Address City/[facility]/ZIP Co de Phone Number [facility] [address] [place] [address] [phone] * (ABNORMAL) CBC auto differential (10/03/2024 1:22 PM EST) White Blood Count 4.8 4.8 - 10.8 X10*3/uL [facility] Red Blood Count 4.43(L) 4.60 - 5.80 X10*6/uL [facility] Hemoglobin 13.1(L) 14.0 - 18.0 g/dl [facility] Hematocrit 39.4(L) 42.0 - 52.0 % [facility] Mean Corpuscular Volume 88.9 80.0 - 98.0 fL [facility] Mean Corpuscular Hemoglobin 29.6 27.0 - 33.0 pg [facility] Mean Corpuscular HGB Conc 33.2 31.0 - 36.0 g/dl [facility] Red Cell Distribution Width 13.4 11.0 - 16.0 % [facility] Platelet Count 241 160 - 400 X10*3/uL [facility] Mean Platelet Volume 9.7 9.4 - 12.4 fL [facility] Neutrophils Percent Auto 64.8 45 - 73 % [facility] Imm Gran Pct Auto 1.0(H) 0.0 - 0.4 % [facility] Lymphocytes Percent Auto 24.5 20 - 40 % [facility] Monocytes Percent Auto 9.5 2 - 11 % [facility] Eosinophils Percent Auto 0.0 0 - 4 % [facility] Basophils Percent Auto 0.2 0 - 2 % [facility] NRBC Pct Auto 0.0 0.0 - 0.2 /100WBC [facility] Neutrophils Absolute Auto 3.1 2.0 - 8.3 x10*3/uL [facility] Imm Gran Abs Auto 0.05(H) 0.00 - 0.03 X10*3/uL [facility] Lymphocytes Absolute Auto 1.2 1.2 - 4.9 X10*3/uL [facility] Monocytes Absolute Auto 0.5 0.1 - 1.2 X10*3/uL [facility] Eosinophils Absolute Auto 0.0 0.0 - 0.4 X10*3/uL [facility] Basophils Absolute Auto 0.0 0.0 - 0.2 X10*3/uL [facility] NRBC Abs Auto 0.000 0.0 - 0.012 X10*3/uL [facility] Blood Venous blood specimen / Unknown 10/03/2024 1:22 PM EST 10/03/2024 4:54 PM EST Hilda Talamantes MD LAB BLOOD ORDERABLES Final Result Performing Organization Address [facility] [[email or web address]] Co de Phone Number [facility] [address] [place] [phone] * (ABNORMAL) Hepatitis C Antibody with Reflex to HCV, RNA, Quantitative, Real- Time PCR (10/03/2024 1:22 PM EST) Hepatitis C Antibody Reactive( A) Nonreactive [facility] Comment:Presumptive evidence of antibodies to HCV. Blood Venous blood specimen / Unknown 10/03/2024 1:22 PM EST 10/03/2024 4:52 PM EST Hilda Talamantes MD LAB BLOOD ORDERABLES Final Result Performing Organization Address [facility] [[email or web address]] Co de Phone Number [facility] [address] [place] [phone] * Iron And Total Iron Binding Capacity (10/03/2024 1:22 PM EST) Iron 88 45 - 160 mcg/dL [facility] Total Iron Binding Capacity 304 228 - 428 mcg/dL [facility] Percent Iron Saturation 29 15 - 50 % [facility] Unsaturated Iron Binding 216 ug/dL [facility] Blood Venous blood specimen / Unknown 10/03/2024 1:22 PM EST 10/03/2024 4:52 PM EST Hilda Talamantes MD LAB BLOOD ORDERABLES Final Result Performing Organization Address City/[facility] [[email or web address]] Co de Phone Number [facility] [address] [place] [phone] * HIV-1/2 Antigen and Antibodies, Fourth Generation, with Reflexes (10/03/2024 1:22 PM EST) HIV AB/AG Nonreactive Nonreactive [facility] Comment:HIV-1 p24 Ag and/or HIV-1/HIV-2 Ab not detected.A test result that is nonreactive does not exclude thepossibility of exposure to or infection with HIV-1 and/orHIV-2. Nonreactive results in this assay for individualswith prior exposure to HIV-1 and/or HIV-2 may be due toantigen and antibody levels that are below the limit ofdetection of this assay.The [employer] HIV Ag/Ab Combo assay result andsupplemental assay results should be interpreted inconjunction with the patient's clinical presentation,history and other laboratory results. If the results areinconsistent with clinical evidence, additional testing issuggested to confirm the result. Blood Venous blood specimen / Unknown 10/03/2024 1:22 PM EST 10/03/2024 4:52 PM EST us Hilda Talamantes MD LAB BLOOD ORDERABLES Final Result Performing Organization Address City/[facility]/ZIP Co de Phone Number [facility] [address] [place] [phone] * Ferritin (10/03/2024 1:22 PM EST) Pathologist [facility] Ferritin 149 20 - 250 ng/mL [facility] Blood Venous blood specimen / Unknown 10/03/2024 1:22 PM EST 10/03/2024 4:52 PM EST Hilda Talamantes MD LAB BLOOD ORDERABLES Final Result Performing Organization Address [facility] [[email or web address]] Co de Phone Number [facility] [address] [place] [address] [phone] * Lipid Panel, Standard (10/03/2024 1:22 PM EST) Triglycerides 138 <150 mg/dL [facility] Comment:Desirable Triglyceri de: less than 150 mg/dLBorderline High Triglyceride 150-199 mg/dLHigh Triglyceride: 200-499 mg/dLVery High Triglyceride: greater than or equal to 5OO mg/dL Cholesterol 147 <200 mg/dL [facility] Comment:Desirable Cholestero l: less than 200 mg/dLBorderline High Cholesterol: 200-239 mg/dLHigh Cholesterol: greater than 239 mg/dL LDL Cholesterol Calculated 71 <100 mg/dL [facility] Comment:Desirable LDL: less than 100 mg/dLNear Optimal/Above Optimal LDL: 110- 129 mg/dLBorderline High LDL: 130-159 mg/dLHigh LDL: 160-189 mg/dLVery High LDL: greater than or equal to 190 mg/dL HDL Cholesterol 49 >40 mg/dL [facility] Comment:Desirable HDL: great er than 40 mg/dL Note: This HDL assay may give artificially low results in patients with liver disease. Blood Venous blood specimen / Unknown 10/03/2024 1:22 PM EST 10/03/2024 4:52 PM EST Hilda Talamantes MD LAB BLOOD ORDERABLES Final Result Performing Organization Address [facility]/ZIP Co de Phone Number [facility] [address] [place] [address] [phone] * (ABNORMAL) Comprehensive Metabolic Panel (10/03/2024 1:22 PM EST) Sodium 137 135 - 145 mmol/L [facility] Potassium 4.7 3.3 - 5.1 mmol/L [facility] Chloride 106 96 - 108 mmol/L [facility] Carbon Dioxide 28 22 - 29 mmol/L [facility] Anion Gap 8(L) 12 - 20 [facility] Urea Nitrogen (BUN) 15 9 - 16 mg/dL [facility] Creatinine, Serum 1.04 0.5 - 1.4 mg/dL [facility] Estimated Glomerular Filt Rate >60 [facility] Comment:Chronic Kidney Disea se: Estimated GFR < 60 mL/min/1.40v1Ehgnqs Kidney Disease: Estimated GFR < 15 mL/min/1.73m2 Glucose 104 60 - 115 mg/dL [facility] Calcium 9.5 8.4 - 10.2 mg/dL [facility] Bilirubin, Total 0.4 0.0 - 1.0 mg/dL [facility] Aspartate Amino Transferase 36 5 - 37 U/L [facility] Alanine Aminotransferase 37 0 - 40 U/L [facility] Total Protein 6.7 6.5 - 8.0 g/dL [facility] Albumin Level 4.3 3.5 - 5.0 g/dL [facility] Alkaline Phosphatase 47 39 - 117 U/L [facility] Blood Venous blood specimen / Unknown 10/03/2024 1:22 PM EST 10/03/2024 4:52 PM EST us Hilda Talamantes MD LAB BLOOD ORDERABLES Final Result [facility] [address] [place] [address] [phone] * Colonoscopy (03/31/2023 1:12 PM EDT) us Historical Provider HEALTH MAINTENANCE Final Result from Last 3 Months or Most Recently Relevant to Health Maintenance Insurance [facility] STANDARD MEDICARE DENTAL-[facility] MEDICAID STAND [place] [phone] Care Teams Bus Person Relationship Specialty Start Date End Date Hilda Hill MD [address] [place] [address] PCP - General Family Medicine 09/03/18
--- OUTSIDE RECORDS SUMMARY | 2024-12-07 16:17 | XMS_ITS ---
Author Organization [facility] Address [address] [place] [address] Care Team Providers Care Certified Nurse Practitioner Name Role Phone Hilda Rivers M.D. Primary Care Provider Yoseph Neil Jr Unavailable [phone] REASON FOR VISIT screening, intermittent constipation MEDICATIONS [...] Active Encounters Encounter Location Date Provider Diagnosis [facility] Outpatient [address] [place], [place] [id number] 01/06/2024 Yoseph Green Jr Encounter for screening colonoscopy Z12.11 ASSESSMENTS Encounter Date Diagnosis Assessment Notes Treatment Notes Treatment Clinical Notes 01/06/2024 Encounter for screening colonoscopy (ICD-10 - Z12.11) PLAN OF TREATMENT No Information
--- OUTSIDE RECORDS SUMMARY | 2024-12-07 16:17 | XMS_ITS | Encounter Summary ---
Author Organization [employer] Address [address] [facility] [address] [place] [address] Care Team Providers Care Ct Scan Technician Name Role Phone Hilda Hill MD Primary Care Provide r Encounter Details Date Type Department Care Team (Latest Contact Info) Description 06/10/2019 Abstract [facility] CONVERSIONS Dental, Provider, DDS Social History [...] Description 12/22/2024 9:30 AM EST Office Visit [facility]ULT [facility] [address] [place] [address] Myron Lombardi DMD [address] [place] [address] 01/30/2025 1:00 PM EDT Office Visit [facility] [address] [place] [address] Phoebe Farris [address] [place] [address] documented as of this encounter Visit Diagnoses Not on filedocumented in this encounter Care Teams Ct Scan Technician Relationship Specialty Start Date End Date Hilda Hill MD [address] [place] [address] PCP - General Family Medicine 09/03/18 documented as of this encounter
--- OUTSIDE RECORDS SUMMARY | 2024-12-07 16:17 | XMS_ITS | Encounter Summary ---
Author Organization [employer] Address [address] [facility] [address] [place] [address] Care Team Providers Care Seed Tester Name Role Phone Hilda Hill MD Primary Care Provide r Encounter Details Date Type Department Care Team (Latest Contact Info) Description 04/19/2021 Abstract [facility] CONVERSIONS Dental, Provider, DDS Social History [...] Description 12/22/2024 9:30 AM EST Office Visit [facility] [address] [place] [address] Myron Lombardi DMD [address] [place] [address] 01/30/2025 1:00 PM EDT Office Visit [facility] [address] [place] [address] Phoebe Farris [address] [place] [address] documented as of this encounter Visit Diagnoses Not on filedocumented in this encounter Care Teams Seed Tester Relationship Specialty Start Date End Date Hilda Hill MD [address] [place] [address] PCP - General Family Medicine 09/03/18 documented as of this encounter
--- OUTSIDE RECORDS SUMMARY | 2024-12-07 16:17 | XMS_ITS | Encounter Summary ---
Author Organization [employer] Address [facility] [address] [place] [address] Care Team Providers Care Toy Stuffer Name Role Phone Hilda Hill MD Primary Care Provide r Encounter Details Date Type Department Care Team (Late st Contact Info) Description 12/07/2024 2:45 PM EST Office Visit [facility] MEDICINE [address] [place], [place] [phone] Hilda Hill MD [address] [place] [address] Anemia, unspecified type (Primary Dx); Constipation, unspecified constipation type Social History Tobacco Use Types Packs/Day Years [...] AM EDT documented as of this encounter Last Filed Vital Signs Vital Sign Reading Time Taken Comments Blood Pressure 134/72 12/07/2024 3:06 PM EST Pulse 66 12/07/2024 2:39 PM EST Temperature 35.8 ??C (96.4 ??F) 12/07/2024 2:39 PM ES T Respiratory Rate 16 12/07/2024 2:39 PM EST Oxygen Saturation - - Inhaled Oxygen Concentration - - Weight 66.4 kg (146 lb 6.4 oz) 12/07/2024 2:39 P M EST Height 170.2 cm (5' 7 ) 12/07/2024 2:39 PM EST Body Mass Index 22.93 12/07/2024 2:39 PM EST documented in this encounter Progress Notes * Hilda Talamantes MD - 12/07/2024 2:45 PM EST SUBJECTIVE: Michael Ayala is a 69 y.o. year old male who presents for Chronic Disease Management . Acute Concerns: Patient reports he has been feeling more anxious stress, and kind of sad due to recent family problems, reports he is coping with these, he declines medications for anxiety or depression for now Patient today also complains of constipation reports stools are hard and small Labs were reviewed with patient today I let him know he has some mild anemia Social History Social History Narrative Not on file Patient Active Problem List Diagnosis Generalized gingival recession Dental plaque Scalp lesion Urinary frequency Encounter for preventive care Basal cell carcinoma (BCC) of scalp Elevated blood pressure reading Abnormal PSA Dyslipidemia Colon cancer screening Acquired hypothyroidism Backache Chronic hepatitis C (CMS/HCC) Chronic low back pain Knee pain Left testicular pain Mixed anxiety and depressive disorder Need for assistance with personal care Opioid abuse (CMS/HCC) Seasonal allergic rhinitis Seborrheic dermatitis Ulcer of skin of face (CMS/HCC) Acute pain of left knee Chronic pain of both knees Right foot pain Vasovagal syncope Primary insomnia Anxiety with depression Anxiety Anemia Skin cancer screening Constipation No family history on file. Review of Systems Constitutional: Negative. HENT: Negative. Respiratory: Negative. Cardiovascular: Negative. Gastrointestinal: Negative. Psychiatric/Behavioral: The patient is nervous/anxious. OBJECTIVE: Vitals: 12/07/24 1439 12/07/24 1506 BP: (!) 160/72 134/72 BP Location: Left arm Patient Position: Sitting BP Cuff Size: Adult Pulse: 66 Resp: 16 Temp: 96.4 ??F (35.8 ??C) TempSrc: Oral Weight: 146 lb 6.4 oz (66.4 kg) Height: 5' 7 (1.702 m) Physical Exam Constitutional: Appearance: Normal appearance. Cardiovascular: Rate and Rhythm: Normal rate and regular rhythm. Pulmonary: Effort: Pulmonary effort is normal. Breath sounds: Normal breath sounds. Abdominal: General: Abdomen is flat. Palpations: Abdomen is soft. Musculoskeletal: Right lower leg: No edema. Left lower leg: No edema. Neurological: Mental Status: He is alert. Follow Up: Follow up in about 4 weeks (around 01/04/2025) for televisit review of labs . Current Outpatient Medications on File Prior to Visit Medication Sig Dispense Refill Ascorbic Acid (vitamin C) 1000 MG tablet Take 1 tablet by mouth 1 (one) time each day. cholecalciferol (Vitamin D-3) 25 MCG (1000 UT) tablet Take 1 tablet by mouth 1 (one) time each day. levothyroxine (Synthroid, Levoxyl) 100 MCG tablet TAKE 1 TABLET BY MOUTH EVERY DAY 90 tablet 1 Multiple Vitamins-Minerals (Multivitamin Adult) chewable tablet Chew 1 tablet 1 (one) time each day. omega-3 (Fish Oil) 500 MG capsule Take 1 capsule by mouth 1 (one) time each day. VITAMIN B COMPLEX-C PO Take 1 tablet by mouth 1 (one) time each day. No current facility-administered medications on file prior to visit. Problem List Items Addressed This Visit Anemia - Primary Anemia workup was ordered today Patient will be contacted with results Relevant Orders Iron And Total Iron Binding Capacity Ferritin Vitamin B12/Folate, Serum Panel Folate, Serum CBC auto differential Constipation Relevant Medications docusate sodium (Colace) 100 MG capsule documented in this encounter Miscellaneous Notes * Assessment & Plan Note - Hilda Talamantes MD - 12/07/2024 4:01 PM EST Associated Problem(s): Anemia Anemia workup was ordered today Patient will be contacted with results documented in this encounter Plan of Treatment Upcoming Encounters Date Type Department Care Team (Late st Contact Info) Description 12/22/2024 9:30 AM EST Office Visit [facility] ADULT DENTAL [address] [place] [address] Myron Lombardi, DMD [address] [place] [address] 01/30/2025 1:00 PM EDT Office Visit [facility] ADULT DENTAL [address] [place] [address] Phoebe Farris [address] [place] [address] Scheduled Orders Name Type Priority Associated Diagnoses Orde r Schedule Iron And Total Iron Binding Capacity Lab Routine Anemia, unspecified type Expected: 12/07/2024, Expires: 12/07/2025 Ferritin Lab Routine Anemia, unspecified type Expected: 12/07/2024, Expires: 12/07/2025 Vitamin B12/Folate, Serum Panel Lab Routine Anemia, unspecified type Expected: 12/07/2024, Expires: 12/07/2025 Folate, Serum Lab Routine Anemia, unspecified type Expected: 12/07/2024 (Approximate), Expires: 12/07/2025 CBC auto differential Lab Routine Anemia, unspecified type Expected: 12/07/2024 (Approximate), Expires: 12/07/2025 documented as of this encounter Visit Diagnoses Diagnosis Anemia, unspecified type- Primary Constipation, unspecified constipation type documented in this encounter Additional Health Concerns Assessment Noted Time PHQ-9 Depression Total Score: 0 02/01/20 24 10:03 AM EDT documented as of this encounter Care Teams Toy Stuffer Relationship Specialty Start Date End Date Hilda Hill MD [address] [place] [phone] PCP - General Family Medicine 09/03/18 documented as of this encounter
--- OUTSIDE RECORDS SUMMARY | 2024-12-07 16:17 | XMS_ITS ---
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 - ICD-10-CM) ACTIVE 10/29/2023 TYPE 2 DIABETES MELLITUS WIT HOUT COMPLICATIONS (E11.9 - ICD-10-CM) ACTIVE 10/29/2023 PRESENCE OF CARDIAC PACEMAKER (Z95.0 - ICD-10-CM) ACTI VE 10/29/2023 NEED FOR ASSISTANCE WITH PERSONAL CARE (Z74.1 - ICD-10 -CM) ACTIVE 10/29/2023 UNILATERAL PRIMARY OSTEOARTH RITIS, RIGHT HIP (M16.11 - ICD-10-CM) ACTIVE 10/29/2023 DIFFICULTY IN WALKING, NOT E LSEWHERE CLASSIFIED (R26.2 - ICD-10-CM) ACTIVE 10/29/2023 DYSPHAGIA, UNSPECIFIED (R13.10 - ICD-10-CM) ACTIVE 10/29/2023 UNSTEADINESS ON FEET (R26.81 - ICD-10-CM) ACTIVE 10/29/2023 PAIN IN LEFT KNEE (M25.562 - ICD-10-CM) ACTIVE 0 10/29/2023 EFFUSION, LEFT KNEE (M25.462 - ICD-10-CM) ACTIVE 10/29/2023 OTHER SPECIFIED JOINT DISORD ERS, LEFT KNEE (M25.862 - ICD-10-CM) ACTIVE 10/29/2023 UNILATERAL PRIMARY OSTEOARTH RITIS, LEFT KNEE (M17.12 - ICD-10-CM) ACTIVE 10/29/2023 MUSCLE WEAKNESS (GENERALIZED) (M62.81 - ICD-10-CM) ACT JERRY 10/29/2023 OTHER ABNORMALITIES OF GAIT AND MOBILITY (R26.89 - ICD-10-CM) ACTIVE 10/29/2023 Encounters Encounter Performer Performer Role Encounter Diagnoses Location Date Discharge - Discharged to home or self care - Home - Other [facility] 10/29/2023 08:40 pm EST - 10/30/2023 10:03 am EST Social History
--- OUTSIDE RECORDS SUMMARY | 2024-12-07 16:17 | XMS_ITS | Encounter Summary ---
Author Organization [employer] Address [address] [facility] 7t [place] [address] Care Team Providers Care Computer Hardware Designer Name Role Phone Hilda Hill MD Primary Care Provide r Encounter Details Date Type Department Care Team (Late st Contact Info) Description 02/12/2023 Orders Only [facility] MEDICINE [address] [place] [address] Nadja Beatty LPN Social History Tobacco Use Types Packs/Day Years Used Date Smoking Tobacco: Never Smokeless Tobacco: Never Alcohol Use Standard Drinks/Week Comments Yes 0 (1 standard drink = 0.6 oz pur e alcohol) Sex and Gender Information Value Date Recorded Sex Assigned at Male 08/25/2022 10:16 AM EDT Legal Sex Male 10:16 AM EDT Gender Identity Male 08/25/2022 10:16 AM EDT Sexual Orientation Choose not to disclose 2021 10:16 AM EDT COVID-19 Exposure Response Date Recorded In the last 10 days, have yo u been in contact with someone who was confirmed or suspected to have Coronavirus/COVID-19? No / Unsure 02/02/2023 1:16 PM EDT documented as of this encounter Plan of Treatment Upcoming Encounters Date Type Department Care Team (Late st Contact Info) Description 12/22/2024 9:30 AM EST Office Visit [facility] ADULT DENTAL [address] [place] [address] Myron Lombardi, ALYSON [address] [place] [address] 01/30/2025 1:00 PM EDT Office Visit [facility] ADULT DENTAL [address] [place] [address] Phoebe Farris [address] [place] [address] documented as of this encounter Procedures Procedure Name Priority Date/Time Associated Diagnosis Comments HIGH SENSITIVITY TROPONIN I Routine 10/25/2023 12:07 PM EST CBC WITH AUTO DIFFERENTIAL Routine 10/25/2023 12:07 PM EST BASIC METABOLIC PANEL Routine 10/25/2023 12:07 PM EST documented in this encounter Results * High Sensitivity Troponin I (10/25/2023 12:07 PM EST) [facility] TROPONIN I HIGH SENSITIVITY 2.7 <3.5 - 35.0 ng/L [facility] Comment:The [place] high sens itivity Troponin-I results should beused in conjunction with other diagnostic information suchas ECG, clinical observations and information, and patientsymptoms to aid in the diagnosis of [place]. 10/25/2023 12:0 7 PM EST 10/25/2023 12:12 PM EST us Generic External Data Provider LAB BLOOD ORDERAB LES Final Result [facility] [address] [place] [address] [phone] * (ABNORMAL) Basic Metabolic Panel (10/25/2023 12:07 PM EST) [facility] Sodium 138 135 - 145 mmol/L [facility] Potassium 4.3 3.3 - 5.1 mmol/L [facility] Chloride 104 96 - 108 mmol/L [facility] Carbon Dioxide 26 22 - 29 mmol/L [facility] Anion Gap 12 12 - 20 [facility] Urea Nitrogen (BUN) 18(H) 9 - 16 mg/dL [facility] Creatinine, Serum 0.94 0.5 - 1.4 mg/dL [facility] Creatinine Clr Calc Pharmacy 67.0 [facility] Comment:eGFR (calculated fro m the MDRD study equation) and eCrCl(calculated from the Cockcroft-Gault equation) are based ondifferent parameters and may not yield comparable results.If eCrCl result is absurd, please check patient'sheight/weight. Estimated Glomerular Filt Rate >60 [facility] Comment:NOTE: For -Am erican individuals, multiply the result by 1.210.Chronic Kidney Disease: Estimated GFR < 60 mL/min/1.99a6Losrcb Kidney Disease: Estimated GFR < 15 mL/min/1.73m2 Glucose 134(H) 60 - 115 mg/dL [facility] Calcium 9.7 8.4 - 10.2 mg/dL [facility] 10/25/2023 12:0 7 PM EST 10/25/2023 12:12 PM EST us Generic External Data Provider LAB BLOOD ORDERAB LES Final Result [facility] [address] [place] [phone] * (ABNORMAL) CBC auto differential (10/25/2023 12:07 PM EST) White Blood Count 11.2(H) 4.8 - 10.8 X10*3/uL [facility] Red Blood Count 4.70 4.60 - 5.80 X10*6/uL [facility] Hemoglobin 13.7(L) 14.0 - 18.0 g/dl [facility] Hematocrit 40.0(L) 42.0 - 52.0 % [facility] Mean Corpuscular Volume 85.1 80.0 - 98.0 fL [facility] Mean Corpuscular Hemoglobin 29.1 27.0 - 33.0 pg [facility] Mean Corpuscular HGB Conc 34.3 31.0 - 36.0 g/dl [facility] Red Cell Distribution Width 13.6 11.0 - 16.0 % [facility] Platelet Count 234 160 - 400 X10*3/uL [facility] Mean Platelet Volume 9.0(L) 9.4 - 12.4 fL [facility] Neutrophils Percent Auto 79.8(H) 45 - 73 % [facility] Imm Gran Pct Auto 0.5(H) 0.0 - 0.4 % [facility] Lymphocytes Percent Auto 12.4(L) 20 - 40 % [facility] Monocytes Percent Auto 7.2 2 - 11 % [facility] Eosinophils Percent Auto 0.0 0 - 4 % [facility] Basophils Percent Auto 0.1 0 - 2 % [facility] NRBC Pct Auto 0.0 0.0 - 0.2 /100WBC [facility] Neutrophils Absolute Auto 8.9(H) 2.0 - 8.3 x10*3/uL [facility] Imm Gran Abs Auto 0.06(H) 0.00 - 0.03 X10*3/uL [facility] Lymphocytes Absolute Auto 1.4 1.2 - 4.9 X10*3/uL [facility] Monocytes Absolute Auto 0.8 0.1 - 1.2 X10*3/uL [facility] Eosinophils Absolute Auto 0.0 0.0 - 0.4 X10*3/uL [facility] Basophils Absolute Auto 0.0 0.0 - 0.2 X10*3/uL [facility] NRBC Abs Auto 0.000 0.0 - 0.012 X10*3/uL [facility] 10/25/2023 12:0 7 PM EST 10/25/2023 12:12 PM EST us Generic External Data Provider LAB BLOOD ORDERAB LES Final Result [facility] [address] [place] [phone] [phone] documented in this encounter Visit Diagnoses Not on filedocumented in this encounter Care Teams Computer Hardware Designer Relationship Specialty Start Date End Date Hilda Hill MD [address] [place] [phone] PCP - General Family Medicine 09/03/18 documented as of this encounter
--- OUTSIDE RECORDS SUMMARY | 2024-12-07 16:17 | XMS_ITS | Patient Health Record ---
Author Organization [facility] Address [address] [place] [address] Care Team Providers Care Warehouse Puller Name Role Phone Hilda Rivers M.D. Primary [...] Problem Colon cancer screening (Z12.11) Active confirmed 414460771 Problem Intermittent constipation (K59.09) Active confirmed [id number] VITAL SIGNS Temperature 97.8 degrees Fahrenheit 12/10/2023 Blood pressure diastolic 00 mm Hg 12/10/2023 Height 5 ft 7 in in 12/10/2023 Blood pressure systolic 00 mm Hg 12/10/2023 Weight 147 lbs 12/10/2023 BMI 23.02 kg/m2 12/10/2023 Encounters Encounter Location Date Provider Diagnosis [facility] Outpatient [address] [place], [place] [phone] 01/06/2024 Yoseph Green Jr Encounter for screening colonoscopy Z12.11 [facility] [address] [place] [address] 12/10/2023 Yoseph Green Jr Colon cancer screening [...] Start Date Coverage End Date MEDICARE OF [place] [address] [place] [id number] [id number] GOLDIE BAKER Self - patient is the insured MEDICAID OF [facility] [address] [place] [address] [phone] [id number] GOLDIE BAKER Self - patient is the insured MEDICAL (GENERAL) HISTORY Medical History History ICD Code BARNARD with post-ablative hypothyroidism BPH with 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
--- OUTSIDE RECORDS SUMMARY | 2024-12-07 16:17 | XMS_ITS | Encounter Summary ---
Author Organization [employer] Address [address] [facility] 7t [place] [address] Care Team Providers Care Commutator Inspector Name Role Phone Hilda Hill MD Primary Care Provide r Reason for Visit * Reason Comments Pre-visit Planning (Unable to reach for PVP screening, LVM) Encounter Details Date Type Department Care Team ([facility] Contact Info) Description 11/24/2024 Patient Outreach [facility] MEDICINE [address] [place] [address] Hilda Hill MD [address] [place] [address] Pre-visit Planning ((Unable to reach for PVP screening, LVM)) Social History Tobacco Use Types Packs/Day Years [...] as of this encounter Progress Notes * Marixa Meyer - 11/24/2024 11:05 AM EST SUJEY Calvin. Placed outbound call to patient to complete pre-visit planning. No answer at this time. Patient name and were not confirmed. CC left voicemail requesting return call. Direct contact information provided. documented in this encounter Plan of Treatment Upcoming Encounters Date Type Department Care Team (Late st Contact Info) Description 12/22/2024 9:30 AM EST Office Visit [facility] ADULT DENTAL [address] [place] [address] Myron Lombardi, AYLSON [address] [place] [address] 01/30/2025 1:00 PM EDT Office Visit [facility] ADULT DENTAL [address] [place] [address] Phoebe Farris [address] [place] [address] documented as of this encounter Visit Diagnoses Not on filedocumented in this encounter Additional Health Concerns Assessment Noted Time PHQ-9 Depression Total Score: 0 02/01/20 24 10:03 AM EDT documented as of this encounter Care Teams Commutator Inspector Relationship Specialty Start Date End Date Hilda Hill MD [address] [place] [address] PCP - General Family Medicine 09/03/18 documented as of this encounter
--- OUTSIDE RECORDS SUMMARY | 2024-12-07 16:17 | XMS_ITS ---
Author Organization [facility] Address [address] [place] [address] Care Team Providers Care Energy Auditor Name Role Phone Hilda Rivers M.D. Primary Care Provider Yoseph Neil Jr Unavailable ALLERGIES No Known Allergies REASON FOR VISIT [...] Problem Colon cancer screening (Z12.11) Active confirmed [id number] Problem Intermittent constipation (K59.09) Active confirmed 08392950 VITAL SIGNS BMI 23.02 kg/m2 12/10/2023 Blood pressure systolic 00 mm Hg 12/10/19 24 Blood pressure diastolic 00 mm Hg 024 Height 5 ft 7 in in 12/10/2023 Temperature 97.8 degrees Fahrenheit 12/10/19 24 Weight 147 lbs 12/10/2023 Encounters Encounter Location Date Provider Diagnosis [facility] [address] [place] [address] 12/10/2023 Yoseph Green Jr Colon cancer screening [...] General Examination GENERAL APPEARANCE: in no ac [place] distress HEAD: normocephalic EYES: sclera non-icteric NECK/THYROID: no lymphadenopathy HEART: S1, S2 normal, no mu rmurs CHEST: normal shape and exp ansion LUNGS: clear to auscultatio n bilaterally ABDOMEN: soft, nontender, non distended, bowel sounds present, no organomegaly SKIN: anicteric EXTREMITIES: no clubbing, cyanosi s, or edema PSYCH: cognitive function i ntact ORAL CAVITY: mucosa moist
--- OUTSIDE RECORDS SUMMARY | 2024-12-07 16:17 | XMS_ITS | Encounter Summary ---
Author Organization [employer] Address [address] [facility] [address] [place] [address] Care Team Providers Care Composite Boat Builder Name Role Phone Hilda Hill MD Primary Care Provide r Encounter Details Date Type Department Care Team (Late st Contact Info) Description 04/22/2024 Orders Only [facility] MEDICINE [address] [place] [address] ProviderTeresa MD Social History Tobacco Use Types Packs/Day Years [...] off services in your home? No 08/15/2023 Depression Answer Date Recorded Patient Health Questionnaire-2 Score 0 02/01/2024 Sex and Gender Information Value Date Recorded [...] Description 12/22/2024 9:30 AM EST Office Visit [facility] ADULT DENTAL [address] [place] [address] Myron Lombardi DMD [address] [place] [address] 01/30/2025 1:00 PM EDT Office Visit [facility] ADULT DENTAL [address] [place] [address] Phoebe Farris [address] [place] [address] documented as of this encounter Procedures Procedure Name Priority Date/Time Associated Diagnosis Comments HM COLONOSCOPY Routine 03/31/2023 1:12 PM EDT documented in this encounter Results * Hm Colonoscopy (03/31/2023 1:12 PM EDT) us Historical Provider HEALTH MAINTENANCE Final Result documented in this encounter Visit Diagnoses Not on filedocumented in this encounter Additional Health Concerns Assessment Noted Time PHQ-9 Depression Total Score: 0 02/01/20 24 10:03 AM EDT documented as of this encounter Care Teams Composite Boat Builder Relationship Specialty Start Date End Date Hilda Hill MD [address] [place] [address] PCP - General Family Medicine 09/03/18 documented as of this encounter
[2024-12-07 16:23] LABS: Basophils Percent Auto 0.3 % (0-2); Hemoglobin 12.4 g/dl (14.0-18.0); Imm Gran Abs Auto 0.02 X10*3/uL (0.00-0.03); Imm Gran Pct Auto 0.6 % (0.0-0.4); Lymphocytes Absolute Auto 1.3 X10*3/uL (1.2-4.9); Lymphocytes Percent Auto 37.3 % (20-40); Mean Corpuscular HGB Conc 35.4 g/dl (31.0-36.0); Mean Corpuscular Hemoglobin 29.8 pg (27.0-33.0); Mean Corpuscular Volume 84.1 fL (80.0-98.0); Mean Platelet Volume 9.4 fL (9.4-12.4); Monocytes Absolute Auto 0.5 X10*3/uL (0.1-1.2); Monocytes Percent Auto 12.9 % (2-11); Neutrophils Absolute Auto 1.8 x10*3/uL (2.0-8.3); Neutrophils Percent Auto 48.9 % (45-73); Platelet Count 188 X10*3/uL (160-400); Red Blood Count 4.16 X10*6/uL (4.60-5.80); Red Cell Distribution Width 12.9 % (11.0-16.0); White Blood Count 3.6 X10*3/uL (4.8-10.8)
[2024-12-07 16:52] LABS: Iron 43 mcg/dL (45-160); Percent Iron Saturation 15 % (15-50); Total Iron Binding Capacity 286 mcg/dL (228-428); Unsaturated Iron Binding 243 ug/dL
[2024-12-07 17:08] LABS: Ferritin 230 ng/mL (20-250)
[2024-12-07 17:17] LABS: Folate 18.1 ng/mL (> or = 4.0); Vitamin B12 563 pg/mL (200-900)
== END 2024-12-07 15:23 | disposition home or self-care (01) ==
LOC: HO.HHCL 15:22
PROVIDERS: Visit Provider Internal Medicine
DX: D64.9 Anemia, unspecified (principal)
CPT/HCPCS: 36415; 82607; 82728; 82746; 83540; 85025

== ENCOUNTER 2025-02-15 13:35 | Outpatient (REF) | payer MEDICARE, MEDICAID, SELFPAY ==
[2025-02-15 15:59] LABS: MANUAL DIFF FLAG NO
[2025-02-15 16:03] LABS: Basophils Percent Auto 0.2 % (0-2); Hematocrit 37.1 % (42.0-52.0); Hemoglobin 12.4 g/dl (14.0-18.0); Imm Gran Abs Auto 0.05 X10*3/uL (0.00-0.03); Imm Gran Pct Auto 1.1 % (0.0-0.4); Lymphocytes Absolute Auto 1.3 X10*3/uL (1.2-4.9); Lymphocytes Percent Auto 28.8 % (20-40); Mean Corpuscular HGB Conc 33.4 g/dl (31.0-36.0); Mean Corpuscular Hemoglobin 28.9 pg (27.0-33.0); Mean Corpuscular Volume 86.5 fL (80.0-98.0); Mean Platelet Volume 9.5 fL (9.4-12.4); Monocytes Absolute Auto 0.5 X10*3/uL (0.1-1.2); Monocytes Percent Auto 9.7 % (2-11); Neutrophils Absolute Auto 2.8 x10*3/uL (2.0-8.3); Neutrophils Percent Auto 60.2 % (45-73); Platelet Count 254 X10*3/uL (160-400); Red Blood Count 4.29 X10*6/uL (4.60-5.80); Red Cell Distribution Width 14.3 % (11.0-16.0); White Blood Count 4.7 X10*3/uL (4.8-10.8)
--- OUTSIDE RECORDS SUMMARY | 2025-02-15 16:11 | XMS_ITS | Patient Health Record ---
Author Organization [facility] Address [address] [place] [address] Care Team Providers Care Librarian Head Name Role Phone Hilda Rivers M.D. Primary Care Provider Yoseph Neil Jr Unavailable Allergies No Known Allergies Reason For Referral No Information Medications Medication SIG (Take, Route, Frequency, Duration) Notes Start Date End Date Status Vitamin D Active Probiotic Active Vitamin C Active Multivitamin - 1 tablet Orally Once a day for 30 day(s) Active Vitamin B Complex Ac tive Levothyroxine Sodium 100 MCG TAKE 1 TABL ET BY MOUTH EVERY DAY Oral for 90 Active Tamsulosin HCl 0.4 MG Oral for 30 Active Social History Tobacco Use: Social History Observation Description Date Details (start date - stop date) Never Smoker NA - NA Tobacco Use/Smoking Question Answer Notes Patient is [...] drinks (0 point) Points 0 Interpretation Negative Section Notes: occasional beer Problems Problem Type SNOMED Code ICD Code Onset Dates Problem Status W/U Status Risk Notes Problem [id number] Colon cancer screening (Z12.11) Active confirmed Problem [id number] Intermittent constipation (K59.09) Active confirmed Plan Of Treatment Future Test Test Name Order Date COLONOSCOPY 12/10/2023 Insurance Providers Payer Name Payer Address Payer Phone Subscriber Number Group Number Insured Name Patient Relationship to Insured Coverage Start Date Coverage End Date MEDICARE OF [place] [address] [place] [id number] [phone] [id number] GOLDIE BAKER Self - patient is the insured MEDICAID OF [facility] [address] [place] [phone] [id number] GOLDIE BAKER Self - patient is the insured Medical (General) History Medical History History ICD Code BARNARD with post-ablative hypothyroidism BPH with 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
--- OUTSIDE RECORDS SUMMARY | 2025-02-15 16:11 | XMS_ITS | Encounter Summary ---
Author Organization [employer] Address [address] [place] [address] Care Team Providers Care Automation Tester Name Role Phone Hilda Hill MD Primary Care Provide r Encounter Details Date Type Department Care Team (Late st Contact Info) Description 04/22/2024 Orders Only [facility] [address] [place] [address] ProviderTeresa MD Social History Tobacco Use Types [...] Care Team (Late st Contact Info) Description 03/02/2025 10:00 AM EDT Office Visit [facility] [address] [place] [address] Myron Lombardi, ALYSON [address] [place] [address] 03/10/2025 11:00 AM EDT Office Visit [facility] [address] [place] [address] Rafita Montaño MD [address] [place] [address] documented as of this encounter Procedures Procedure Name Priority Date/Time Associated Diagnosis Comments HM COLONOSCOPY Routine 03/31/2023 1:12 PM EDT documented in this encounter Results * Hm Colonoscopy (03/31/2023 1:12 PM EDT) Historical Provider HEALTH MAINTENANCE Final Result documented in this encounter Visit Diagnoses Not on filedocumented in this encounter Additional Health Concerns Assessment Noted Time PHQ-9 Depression Total Score: 0 02/01/20 24 10:03 AM EDT documented as of this encounter Care Teams Automation Tester Relationship Specialty Start Date End Date Hilda Hill MD [address] [place] [address] PCP - General Family Medicine 09/03/18 documented as of this encounter
--- OUTSIDE RECORDS SUMMARY | 2025-02-15 16:11 | XMS_ITS | Encounter Summary ---
Author Organization [employer] Address [address] [facility] [place] [address] Care Team Providers Care Radio Technician Name Role Phone Hilda Hill MD Primary Care Provide r Reason for Visit * Reason Onset Date Comments Call Back Request 11/18/2023 Encounter Details Date Type Department Care Team ([facility] st Contact Info) Description 11/18/2023 Telephone [facility] [address] [place] [address] Hilda Hill MD [address] [place] [address] Call Back Request Social History Tobacco Use [...] 2:53 PM EST TC placed to pt [phone] in regards to ortho referral. Pt reports he was referred to ortho at [facility] however [facility] ortho called pt and advised him he had to be seen at [facility] because that is where he was [...] pt has requested. Please contact pt at [phone] documented in this encounter Plan of Treatment Upcoming Encounters Date Type Department Care Team (Late st Contact Info) Description 03/02/2025 10:00 AM EDT Office Visit [facility]ULT [facility] [address] [place], [place] [phone] Myron Lombardi, DMD [address] [place], [place] [phone] 03/10/2025 11:00 AM EDT Office Visit [facility] [address] [place], [place] [phone] Rafita Montaño MD [address] [place] [address] documented as of this encounter Visit Diagnoses Not on filedocumented in this encounter Care Teams Radio Technician Relationship Specialty Start Date End Date Hilda Hill MD [address] [place] [phone] PCP - General Family Medicine 09/03/18 documented as of this encounter
--- OUTSIDE RECORDS SUMMARY | 2025-02-15 16:12 | XMS_ITS ---
Author Organization [facility] Address [address] [place] [address] Care Team Providers Care Documentation Improvement Specialist Name Role Phone Hilda Rivers M.D. Primary Care Provider Yoseph Neil Jr Unavailable Allergies No Known Allergies REASON FOR VISIT Patient presents today for a screening colonoscopy Medications Medication SIG (Take, Route, Frequency, Duration) Notes Start Date End Date Status Vitamin C Active Vitamin D Active Multivitamin - 1 tablet Orally Once a day for 30 day(s) Active Vitamin B Complex Ac tive Probiotic Active Tamsulosin HCl 0.4 MG Oral for 30 Active Levothyroxine Sodium 100 MCG TAKE 1 TABL ET BY MOUTH EVERY DAY Oral for 90 Active Social History Tobacco Use: Social History [...] Problem Status W/U Status Risk Notes Problem [id number] Colon cancer screening (Z12.11) Active confirmed Problem 59615812 Intermittent constipation (K59.09) Active confirmed Vital Signs Temperature 97.8 degrees Fahrenheit 12/10/19 24 Blood pressure systolic 00 mm Hg 12/10/19 24 Blood pressure diastolic 00 mm Hg 024 Height 5 ft 7 in in 12/10/2023 Weight 147 lbs 12/10/2023 BMI 23.02 kg/m2 12/10/2023 Encounters Encounter Location Date Provider Diagnosis [facility] [address] [place] [address] 12/10/2023 Yoseph Green Jr Colon cancer screening Z12.11 and Intermittent constipation K59.09 Assessments Encounter Date Diagnosis (ICD Code) Assessment Notes Treatment Notes Treatment Clinical Notes Section Notes 12/10/2023 Colon cancer screening (ICD-10 - Z12.11) We discussed the causes of intermittent constipation including slow transit constipation. We recommended fiber supplementation as well as a high-fiber diet, and he can use MiraLax on a p.r.n. basis. He will have a repeat colonoscopy with a 2 day prep because of the lack of completeness of his last bowel prep. We discussed risks and benefits of the procedure today. He understands these and agrees to proceed. 12/10/2023 Intermittent constipation (ICD-10 - K59.09) Colonoscopy material was printed We discussed the causes of intermittent constipation including slow transit constipation. We recommended fiber supplementation as well as a high-fiber diet, and he can use MiraLax on a p.r.n. basis. He will have a repeat colonoscopy with a 2 day prep because of the lack of completeness of his last bowel prep. We discussed risks and benefits of the procedure today. He understands these and agrees to proceed. Plan Of Treatment Treatment Notes Assessment Notes Intermittent constipation Colonoscopy lul younger was printed Future Test Test Name Order Date COLONOSCOPY 12/10/2023 Next Appt Details Follow Up: 1 Year, Reason: Progress Notes * OLIVIA GOLDIE FDOB: [birth year] (68 yo M)Acc No.[id number]:12/10/2023 Progress Notes Patient:?GOLDIE AYALA Provider:?Yoseph Green MD :1955???Age:68 Y???Sex:Male John e:12/10/2023 Address:[address] [place] [address] [facility] Pcp:Hilda Rivers M.D. Subjective: * Chief Complaints: * ???1. Patient presents today for a screening colonoscopy. * HPI: ???New symptom(s):? Mr. Ayala is a 68-year-old man seen today in consultation. This was done in March 2023 and showed internal hemorrhoids. One year followup examination was indicated because of the nature of the prep. The patient requested a new provider. ?He has no complaints of rectal bleeding. There is no rectal pain, abdominal pain, or change in his bowel habits. Weight and appetite have been stable. He does report intermittent constipation which he tries to manage with diet. * ROS:?General/Constitutional:?Change in appetite?denies.?Fatigue?denies.?ENT:?Patient denies?difficulty swallowing.?Respiratory:?Patient denies?shortness of breath.?Cardiovascular:?Patient denies?chest pain.?Gastrointestinal:?Comments?See HPI for details.?Genitourinary:?Difficulty urinating?denies.?Incontinence?denies.?Musculoskeletal:?Patient denies?muscle aches.?Skin:?Patient denies?pruritis.?Neurologic:?Patient denies?low back pain.?Psychiatric:?Patient denies?mental or physical abuse.? * Medical History:?BARNARD with po st-ablative hypothyroidism, BPH with elevated PSA and lower urinary tract symptoms, Anxiety/depression, Hepatitis C antibody positive with negative viral load. * Surgical History:?Knee arthr oscopy , Cervical spine surgery , Eye surgery NOS , Inguinal hernia repair . * Family History:?Father: dece ased.?Mother: .? no known hx of colon ca,polyps or liver ds. * Social History:?Tobacco Use:?Tobacco Use/Smoking?Patient is a?nonsmoker.?Drugs/Alcohol:?Alcohol Screen?Did you have a drink containing alcohol in the past year??Yes,?How often did you have a drink containing alcohol in the past year??Never (0 point),?How many drinks did you have on a typical day when you were drinking in the past year??1 or 2 drinks (0 point),?Points?0,?Interpretation?Negative.?Miscellaneous:?Marital status: . Occupation: retired [employer]. ???occasional beer. * Medications:?Taking Vitamin D , Taking Vitamin C , Taking Probiotic , Taking Vitamin B Complex , Taking Multivitamin - Tablet 1 tablet Orally Once a day, Taking Levothyroxine Sodium 100 MCG Tablet TAKE 1 TABLET BY MOUTH EVERY DAY Oral , Taking Tamsulosin HCl 0.4 MG Capsule Oral , Medication List reviewed and reconciled with the patient * Allergies:?N.K.D.A. Objective: * Vitals:?Wt: 147 lbs, Ht: 5 f t 7 in, BMI:23.02 Index, BP: 00/00 mm Hg, Temp: 97.8. * Examination: ???General Examination: ?GENERAL APPEARANCE:?in no acute distress.?HEAD:?normocephalic.?EYES:?sclera non-icteric.?ORAL CAVITY:?mucosa moist.?NECK/THYROID:?no lymphadenopathy.?SKIN:?anicteric.?HEART:?S1, S2 normal, no murmurs.?LUNGS:?clear to auscultation bilaterally.?CHEST:?normal shape and expansion.?ABDOMEN:?soft, nontender, nondistended, bowel sounds present, no organomegaly .?EXTREMITIES:?no clubbing, cyanosis, or edema.?PSYCH:?cognitive function intact.? Assessment: * Assessment: 1.?Intermittent constipation - K59.09 (Primary)?2.?Colon cancer screening - Z12.11? We discussed the causes of i ntermittent constipation including slow transit constipation. We recommended fiber supplementation as well as a high-fiber diet, and he can use MiraLax on a p.r.n. basis. He will have a repeat colonoscopy with a 2 day prep because of the lack of completeness of his last bowel prep. We discussed risks and benefits of the procedure today. He understands these and agrees to proceed. Plan: * Treatment: Notes: Colonoscopy material was printed.??2.?Colon cancer screening?Procedure: COLONOSCOPY (Ordered for 12/10/2023)* sched for 01/06/24 at 1:00 pm mac2 day miralax prep * Procedure Codes:?3017F COLOR ECTAL CA SCREEN DOC REV, G9903 Pt scrn tbco id as non user, G9745 DOC RSN FOR NOT SCREEN/REC F/U HBP * Follow Up:?1 Year * * Sign off status: Completed true * Provider:?Yoseph Green MD Date:?0 12/10/2023 Generated for Benitez connor/Abdiel/eTransmitting on:?02/15/2025 04:11 PM EDT History and Physical Notes * HPI (History of Present Illness) Category Sub-Category Detail Notes Category Not es New symptom(s) Mr. Ayala is a 68-year-old man seen today in consultation. This was done in March 2023 and showed internal hemorrhoids. One year followup examination was indicated because of the nature of the prep. The patient requested a new provider. He has no complaints of rectal bleeding. There is no rectal pain, abdominal pain, or change in his bowel habits. Weight and appetite have been stable. He does report intermittent constipation which he tries to manage with diet. Examination Category Sub-Category Detail Notes Category Not es General Examination GENERAL APPEARANCE: in no acute di stress HEAD: normocephalic EYES: sclera non-icteric NECK/THYROID: no lymphadenopathy HEART: S1, S2 normal, no mu rmurs CHEST: normal shape and exp ansion LUNGS: clear to auscultatio n bilaterally ABDOMEN: soft, nontender, non distended, bowel sounds present, no organomegaly SKIN: anicteric EXTREMITIES: no clubbing, cyanosi s, or edema PSYCH: cognitive function i ntact ORAL CAVITY: mucosa moist
--- OUTSIDE RECORDS SUMMARY | 2025-02-15 16:12 | XMS_ITS | Encounter Summary ---
Author Organization [employer] Address [address] [facility] [address] [place] [address] Care Team Providers Care Medication Specialist Name Role Phone Hilda Hill MD Primary Care Provide r Encounter Details Date Type Department Care Team (Late Contact Info) Description 02/12/2023 Orders Only [facility] [address] [place] [address] Nadja Beatty LPN Social History Tobacco Use [...] Encounters Date Type Department Care Team (Late Contact Info) Description 03/02/2025 10:00 AM EDT Office Visit [facility] [address] [place] [address] Myron Lombardi, ALYSON [address] [place] [address] 03/10/2025 11:00 AM EDT Office Visit [facility] [address] [place] [address] Rafita Montaño MD [address] [place] [address] documented as of this encounter Procedures Procedure Name Priority Date/Time Associated Diagnosis Comments HIGH SENSITIVITY TROPONIN I Routine 10/25/2023 12:07 PM EST CBC WITH AUTO DIFFERENTIAL Routine 10/25/2023 12:07 PM EST BASIC METABOLIC PANEL Routine 10/25/2023 12:07 PM EST documented in this encounter Results * High Sensitivity Troponin I (10/25/2023 12:07 PM EST) Pathologist [facility] TROPONIN I HIGH SENSITIVITY 2.7 <3.5 - 35.0 ng/L [facility] Comment:The [place] high sens itivity Troponin-I results should beused in conjunction with other diagnostic information suchas ECG, clinical observations and information, and patientsymptoms to aid in the diagnosis of PR. 10/25/2023 12:0 7 PM EST 10/25/2023 12:12 PM EST us Generic External Data Provider LAB BLOOD ORDERAB LES Final Result [facility] [address] [place] [phone] * (ABNORMAL) Basic Metabolic Panel (10/25/2023 12:07 PM EST) Pathologist [facility] Sodium 138 135 - 145 mmol/L [facility] Potassium 4.3 3.3 - 5.1 mmol/L [facility] Chloride 104 96 - 108 mmol/L [facility] Carbon Dioxide 26 22 - 29 mmol/L [facility] Anion Gap 12 12 - 20 [facility] Urea Nitrogen (BUN) 18(H) 9 - 16 mg/dL [facility] Creatinine, Serum 0.94 0.5 - 1.4 mg/dL [facility] Creatinine Clr Calc Pharmacy 67.0 [facility] Comment:eGFR (calculated fro m the MDRD study equation) and eCrCl(calculated from the Cockcroft-Gault equation) are based ondifferent parameters and may not yield comparable results.If eCrCl result is absurd, please check patient'sheight/weight. Estimated Glomerular Filt Rate >60 [facility] Comment:NOTE: For -Am erican individuals, multiply the result by 1.210.Chronic Kidney Disease: Estimated GFR < 60 mL/min/1.62n2Yxgigy Kidney Disease: Estimated GFR < 15 mL/min/1.73m2 Glucose 134(H) 60 - 115 mg/dL [facility] Calcium 9.7 8.4 - 10.2 mg/dL [facility] 10/25/2023 12:0 7 PM EST 10/25/2023 12:12 PM EST us Generic External Data Provider LAB BLOOD ORDERAB LES Final Result [facility] [address] [place], [place] [phone] * (ABNORMAL) CBC auto differential (10/25/2023 12:07 PM EST) White Blood Count 11.2(H) 4.8 - 10.8 X10*3/uL [facility] Red Blood Count 4.70 4.60 - 5.80 X10*6/uL [facility] Hemoglobin 13.7(L) 14.0 - 18.0 g/dl [facility] Hematocrit 40.0(L) 42.0 - 52.0 % [facility] Mean Corpuscular Volume 85.1 80.0 - 98.0 fL [facility] Mean Corpuscular Hemoglobin 29.1 27.0 - 33.0 pg [facility] Mean Corpuscular HGB Conc 34.3 31.0 - 36.0 g/dl [facility] Red Cell Distribution Width 13.6 11.0 - 16.0 % [facility] Platelet Count 234 160 - 400 X10*3/uL [facility] Mean Platelet Volume 9.0(L) 9.4 - 12.4 fL [facility] Neutrophils Percent Auto 79.8(H) 45 - 73 % [facility] Imm Gran Pct Auto 0.5(H) 0.0 - 0.4 % [facility] Lymphocytes Percent Auto 12.4(L) 20 - 40 % [facility] Monocytes Percent Auto 7.2 2 - 11 % [facility] Eosinophils Percent Auto 0.0 0 - 4 % [facility] Basophils Percent Auto 0.1 0 - 2 % [facility] NRBC Pct Auto 0.0 0.0 - 0.2 /100WBC [facility] Neutrophils Absolute Auto 8.9(H) 2.0 - 8.3 x10*3/uL [facility] Imm Gran Abs Auto 0.06(H) 0.00 - 0.03 X10*3/uL [facility] Lymphocytes Absolute Auto 1.4 1.2 - 4.9 X10*3/uL [facility] Monocytes Absolute Auto 0.8 0.1 - 1.2 X10*3/uL [facility] Eosinophils Absolute Auto 0.0 0.0 - 0.4 X10*3/uL [facility] Basophils Absolute Auto 0.0 0.0 - 0.2 X10*3/uL [facility] NRBC Abs Auto 0.000 0.0 - 0.012 X10*3/uL [facility] 10/25/2023 12:0 7 PM EST 10/25/2023 12:12 PM EST us Generic External Data Provider LAB BLOOD ORDERAB LES Final Result [facility] [address] [place] [address] [phone] documented in this encounter Visit Diagnoses Not on filedocumented in this encounter Care Teams Medication Specialist Relationship Specialty Start Date End Date Hilda Hill MD [address] [place] [address] PCP - General Family Medicine 09/03/18 documented as of this encounter
--- OUTSIDE RECORDS SUMMARY | 2025-02-15 16:12 | XMS_ITS ---
Author Organization [facility] on Care Team Providers Care Mold Inspector Name Role Phone La Nena Edmonds Unavailable Unavailable Sobia Salguero Unavailable Unavailable Edith Howard Unavailable Unavailable Harish Zhong Unavailable Unavailable Elda Cade Unavailable Unavailable Allergies and adverse reactions No Known Allergies Care Team Name Role Address Phone Organization Dates Sobia Salguero PCP [address] [place] [address], [place], [address], [place] (Office): : [facility] 10/30/2023 - 10/30/2023 La Nena Edmonds Attending Physician [address] [place], [address], [place] (Office): [facility] 10/30/2023 - 10/30/2023 Edith Howard Attending Physician [address] [place], [address], [place] (Office): [facility] 10/30/2023 - 10/30/2023 Harish Zhong Attending Physician [address] [place] [address], [phone], [place] (Office): [facility] 10/30/2023 - 10/30/2023 Elda Cade Attending Physician [address] [place] [address], [place], [address], [place] (Office): : [facility] 10/30/2023 - 10/30/2023 Mental Status Section Date Assessment Total Score Description 10/30/2023 BIMS 15 cognitively int act CAM 0 No delirium ind icated 10/30/2023 CAM 0 No delirium ind icated Problems Problem # Description Date of onset Resolved Date Code CodeSystem Concern Status 1 ATHEROSCLEROTIC HEART DISEASE OF [place] CORONARY ARTERY WITHOUT ANGINA PECTORIS 10/29/[address] active 2 DIFFICULTY IN WALKING, NOT ELSEWHERE CLASSIFIED 10/29/[address] active 3 DYSPHAGIA, UNSPECIFIED 10/29/[address] active 4 EFFUSION, LEFT KNEE 10/29/[address] active 5 MUSCLE WEAKNESS (GENERALIZED) 10/29/[address] active 6 NEED FOR ASSISTANCE WITH PERSONAL CARE 10/29/[address] active 7 OTHER ABNORMALITIES OF GAIT AND MOBILITY 10/29/[address] active 8 OTHER SPECIFIED JOINT DISORDERS, LEFT KNEE 10/29/[address] active 9 PAIN IN LEFT KNEE 10/29/[address] active 10 PRESENCE OF CARDIAC PACEMAKER 10/29/[address] active 11 TROCHANTERIC BURSITIS, RIGHT HIP 10/29/[address] active 12 TYPE 2 DIABETES MELLITUS WITHOUT COMPLICATIONS 10/29/[address] active 13 UNILATERAL PRIMARY OSTEOARTHRITIS, LEFT KNEE 10/29/[address] active 14 UNILATERAL PRIMARY OSTEOARTHRITIS, RIGHT HIP 10/29/[address] active 15 UNSTEADINESS ON FEET 10/29/[address] active Reason for Referral No Reasons for Referral Entered Social History Social History Observation Description Start Date End Date Code Code System Current Smoking Status Tobacco smoking consumption unknown 192464570 SNOMED CT Sex Assigned At Male 1955 31471-9 [facility] Vital Signs Code Code System Vitals Name Values and Units Timing Information 9279-1 [facility] Respiratory Rate Value=17.0 Units=/m in 10/30/2023 8462-4 [facility] Blood Pressure-Diastolic Value=80 Un its=mmHg 10/30/2023 8480-6 [facility] Blood Pressure-Systolic Fsepq=574 Un its=mmHg 10/30/2023 8310-5 [facility] Body Temperature Value=97.0 Units=?? F 10/30/2023 8867-4 [facility] Heart rate Value=92.0 Units=/min 02/2024 20958-9 [facility] O2 % BldC Oximetry Value=96.0 Units= % 10/30/2023 90839-0 [facility] Pain Level Value=0.0 10/30/2023 77606-9 [facility] Weight Hdhda=021.0 Units=Lbs 02/2024 8302-2 [facility] Height Value=67.0 Units=Inches 10/30/2023
--- OUTSIDE RECORDS SUMMARY | 2025-02-15 16:12 | XMS_ITS | Clinical Summary ---
Author Organization [employer] Address [address] [facility] [address]t [place] [address] Care Team Providers Care Turret Punch Operator Name Role Phone Hilda Hill MD Primary Care Provide r Allergies No known active allergies Medications * This document contains information received from the source organization and may not represent a complete record from that organization. cholecalcifero l (Vitamin D-3) 25 MCG (1000 UT) tablet Take 1 tablet by mouth 1 (one) time each day. 1 Active Multiple Vitamins-Kidder als (Multivitamin Adult) chewable tablet Chew 1 tablet [...] BY MOUTH EVERY DAY 90 tablet 1 5 Active levothyroxine (Synthroid, Levoxyl) 100 MCG tablet TAKE 1 TABLET BY MOUTH EVERY DAY 90 tablet 1 4 02/09/20 25 Discontinued Active Problems Problem Noted Date Diagnosed Date Constipation 12/07/2024 Anemia 09/09/2024 Assessment & Plan (01/26/2025 12:08 PM EDT): I am going to repeat his CBC and iron panel to verify if there is any improvement after checking his results I will contact him with decision of next step For now I did not prescribe for him iron because he does have underlying constipation and would like to avoid this to be worse Assessment & Plan (12/07/2024 4:01 PM EST): [...] Counseling done I will refer patient to N Patient declines medications Acute pain of left [...] change position slowly Acquired hypothyroidism 11/12/2023 11/12/19 Assessment & Plan (05/04/2024 2:46 PM EDT): [...] Encounters Date Type Department Care Team Description 02/08/2025 Refill [facility] [address] [place] [address] Hilda Hill MD 02/06/2025 8:30 AM EDT Office Visit [facility] ADULT [facility] [address] [place] [address] Myron Lombardi DMD 01/30/2025 1:00 PM EDT Office Visit [facility] [address] [place] [address] KaleighPhoebe Generalized gingival recession (Primary Dx); Dental plaque 01/26/2025 11:30 AM EDT Telemedicine [facility] [address] [place] [address] Hilda Hill MD Anemia, unspecified type (Primary Dx) 01/26/2025 Travel 12/22/2024 9:30 AM EST Office Visit [facility] [address] [place] [address] Myron Lombardi DMD 12/09/2024 Telephone [facility] [address] [place] [address] Hilda Hill MD Results 12/09/2024 Orders Only [facility] [address] [place] [phone] Hilda Hill MD Iron deficiency anemia, unspecified iron deficiency anemia type (Primary Dx) 12/07/2024 2:45 PM EST Office Visit [facility] [address] [place] [address] Hilda Hill MD Anemia, unspecified type (Primary Dx); Constipation, unspecified constipation type 12/07/2024 Travel 11/24/2024 Patient Outreach [facility] [address] [place] [address] Hilda Hill MD Pre-visit Planning ((Unable to reach for PVP screening, LVM)) 11/18/2024 3:30 PM EST Office Visit [facility] [address] [place] [address] Myron Lombardi DMD from Last 3 Months Immunizations Name Administration Dates Next Due Hep A, ped/adol, 2 dose 08/24/2003,02/08/2003 Influenza High-dose Quadriva lent Preservative Free 08/28/2023,09/02/2022 Influenza injectable quadriv alent IIV4 with preservative 09/25/2017,07/25/2016,08/27/2015 Influenza injectable quadriv alent preservative free 10/04/2021,10/05/2018,12/01/2014 Influenza, High Dose Seasona l, Preservative Free 09/09/2024,08/19/2019 Influenza, Split (incl. navneet fied surface antigen) 08/19/2013 Moderna Covid-19 Vaccine 12+ 06/04/2022 Pfizer Covid-19 Vaccine 12+ 09/09/2024, 3,09/02/2022 Pfizer Covid-19 Vaccine 12+ Bivalent 09/02/2022 Pneumococcal [...] Sign Reading Time Taken Comments Blood Pressure 138/82 02/06/2025 8:34 AM EDT Pulse 64 02/06/2025 8:34 AM EDT Temperature 35.8 ??C (96.4 ??F) 12/07/2024 2:39 [...] Description 03/02/2025 10:00 AM EDT Office Visit [facility] [address] [place] [address] Myron Lombardi, ALYSON [address] [place] [address] 03/10/2025 11:00 AM EDT Office Visit [facility] [address] [place] [address] Rafita Montaño MD [address] [place], [place] [phone] Health Maintenance Due Date Last Done Comments [...] Dental Oral Exam 11/28/2024 05/27/2024, , 06/16/2022 Depression Screening 01/31/2025 02/01/2024, 02/01/20 24 Derm Melanoma Skin Check 03/09/2025 09/09/2024, 08/26 Dental X-Ray: Bitewings 07/09/2025 07/08/20 24, 05/27/2024, 09/16/2023, Additional history exists Dental Prophylaxis 08/02/2025 01/30/2025, 1 , 09/16/2023, Additional history exists SDOH Screening 09/01/2025 09/01/2024 Alcohol/Substance Use Screening 09/09/2025 09/09/2024 Tobacco Screening 02/06/2026 02/06/2025 Dental X-Ray: Full Mouth 09/17/2026 09/16/2023, 05/26 [...] Procedure Name Priority Date/Time Associated Diagnosis Comments CBC WITH AUTO DIFFERENTIAL Routine 02/15/2025 1:37 PM EDT Anemia, unspecified type BITE REGISTRATION Routine 02/06/2025 8:3 0 AM EDT DENTURE IMPRESSION Routine 02/06/2025 8: 30 AM EDT CASE PRESENTATION, DETAILED AND EXTENSIVE TREATMENT PLANNING Routine 01/30/2025 1:00 PM EDT Generalized gingival recession Dental plaque ORAL HYGIENE INSTRUCTIONS Routine 01/30/2025 1:00 PM EDT Generalized gingival recession Dental plaque PROPHYLAXIS - ADULT Routine 01/30/2025 1 :00 PM EDT Generalized gingival recession Dental plaque CASE PRESENTATION, DETAILED AND EXTENSIVE TREATMENT PLANNING Routine 12/22/2024 9:30 AM EST 24 MIDFL RESIN-BASED COMPOSITE - 4 OR MORE SURFACES (ANTERIOR) Routine 12/22/2024 9:30 AM EST CBC WITH AUTO DIFFERENTIAL Routine 12/07/2024 3:25 PM EST Anemia, unspecified type VITAMIN B12/FOLATE, SERUM PANEL Routine 12/07/2024 3:25 PM EST Anemia, unspecified type FERRITIN Routine 12/07/2024 3:25 PM EST Anemia, unspecified type IRON AND TOTAL IRON BINDING CAPACITY Routine 12/07/2024 3:25 PM EST Anemia, unspecified type CASE PRESENTATION, DETAILED AND EXTENSIVE TREATMENT PLANNING Routine 11/18/2024 3:30 PM EST INTRAORAL - PERIAPICAL EACH ADDITIONAL RADIOGRAPHIC IMAGE Routine 11/18/2024 3:30 PM EST INTRAORAL - PERIAPICAL FIRST RADIOGRAPHIC IMAGE Routine 11/18/2024 3:30 PM EST LIMITED ORAL EVALUATION - PROBLEM FOCUSED Routine 11/18/2024 3:30 PM EST 18 EXTRACTION Routine 11/18/2024 12:00 AM EST 2 EXTRACTION Routine 11/18/2024 12:00 AM EST LIPID PANEL, STANDARD Routine 10/03/2024 1:22 PM EST Dyslipidemia BITEWING - SINGLE RADIOGRAPHIC IMAGE Routine 07/08/2024 10:00 AM EDT Closed fracture of tooth, initial encounter PERIODIC ORAL EVALUATION - ESTABLISHED PATIENT Routine 05/27/2024 11:00 AM EDT INTRAORAL - COMPLETE SERIES OF RADIOGRAPHIC IMAGES Routine 09/16/2023 2:00 PM EST Generalized gingival recession Dental plaque HM COLONOSCOPY Routine 03/31/2023 1:12 PM EDT from Last 3 Months or Most Recently Relevant to Health Maintenance Results * (ABNORMAL) CBC auto differential (02/15/2025 1:37 PM EDT) Only the most recent of2 resultswithin the time period is included. White Blood Count 4.7(L) 4.8 - 10.8 X10*3/uL [facility] Red Blood Count 4.29(L) 4.60 - 5.80 X10*6/uL [facility] Hemoglobin 12.4(L) 14.0 - 18.0 g/dl [facility] Hematocrit 37.1(L) 42.0 - 52.0 % [facility] Mean Corpuscular Volume 86.5 80.0 - 98.0 fL [facility] Mean Corpuscular Hemoglobin 28.9 27.0 - 33.0 pg [facility] Mean Corpuscular HGB Conc 33.4 31.0 - 36.0 g/dl [facility] Red Cell Distribution Width 14.3 11.0 - 16.0 % [facility] Platelet Count 254 160 - 400 X10*3/uL [facility] Mean Platelet Volume 9.5 9.4 - 12.4 fL [facility] Neutrophils Percent Auto 60.2 45 - 73 % [facility] Imm Gran Pct Auto 1.1(H) 0.0 - 0.4 % [facility] Lymphocytes Percent Auto 28.8 20 - 40 % [facility] Monocytes Percent Auto 9.7 2 - 11 % [facility] Eosinophils Percent Auto 0.0 0 - 4 % [facility] Basophils Percent Auto 0.2 0 - 2 % [facility] NRBC Pct Auto 0.0 0.0 - 0.2 /100WBC [facility] Neutrophils Absolute Auto 2.8 2.0 - 8.3 x10*3/uL [facility] Imm Gran Abs Auto 0.05(H) 0.00 - 0.03 X10*3/uL [facility] Lymphocytes Absolute Auto 1.3 1.2 - 4.9 X10*3/uL [facility] Monocytes Absolute Auto 0.5 0.1 - 1.2 X10*3/uL [facility] Eosinophils Absolute Auto 0.0 0.0 - 0.4 X10*3/uL [facility] Basophils Absolute Auto 0.0 0.0 - 0.2 X10*3/uL [facility] NRBC Abs Auto 0.000 0.0 - 0.012 X10*3/uL [facility] Blood Venous blood specimen / Unknown 02/15/2025 1:37 PM EDT 02/15/2025 3:53 PM EDT Hilda Talamantes MD LAB BLOOD ORDERABLES Final Result Performing Organization Address City/[facility]/ZIP Co de Phone Number [facility] [address] [place] [phone] * Vitamin B12/Folate, Serum Panel (12/07/2024 3:25 PM EST) Vitamin B12 563 200 - 900 pg/mL [facility] Comment:NORMAL 200-900 PG/ML INDETERMINATE 160-199 PG/ML DEFICIENT < 160 PG/ML Folate 18.1 > or = 4.0 ng/mL [facility] Comment:Reference Values:> o r = 4.0 ng/mL< 4.0 ng/mL suggests folate deficiency Methotrexate, aminopterin and folinic acid(leucovorin) are chemotherapeutic agents whose molecularstructures are similar to folate; therefore, the Architectfolate assay cannot be used for patients using these drugs. Blood Venous blood specimen / Unknown 12/07/2024 3:25 PM EST 12/07/2024 4:12 PM EST Hilda Talamantes MD LAB BLOOD ORDERABLES Final Result Performing Organization Address City/[facility]/ZIP Co de Phone Number [facility] [address] [place] [phone] * (ABNORMAL) Iron And Total Iron Binding Capacity (12/07/2024 3:25 PM EST) Iron 43(L) 45 - 160 mcg/dL [facility] Total Iron Binding Capacity 286 228 - 428 mcg/dL [facility] Percent Iron Saturation 15 15 - 50 % [facility] Unsaturated Iron Binding 243 ug/dL [facility] Blood Venous blood specimen / Unknown 12/07/2024 3:25 PM EST 12/07/2024 4:12 PM EST us Hilda Talamantes MD LAB BLOOD ORDERABLES Final Result Performing Organization Address City/[facility]/ZIP Co de Phone Number [facility] [address] [place] [phone] * Ferritin (12/07/2024 3:25 PM EST) Ferritin 230 20 - 250 ng/mL [facility] Blood Venous blood specimen / Unknown 12/07/2024 3:25 PM EST 12/07/2024 4:12 PM EST us Hilda Talamantes MD LAB BLOOD ORDERABLES Final Result Performing Organization Address [facility] Co de Phone Number [facility] [address] [place] [phone] * Lipid Panel, Standard (10/03/2024 1:22 PM EST) Triglycerides 138 <150 mg/dL [facility] Comment:Desirable Triglyceri de: less than 150 mg/dLBorderline High Triglyceride 150-199 mg/dLHigh Triglyceride: 200-499 mg/dLVery High Triglyceride: greater than or equal to 5OO mg/dL Cholesterol 147 <200 mg/dL [facility] Comment:Desirable Cholestero l: less than 200 mg/dLBorderline High Cholesterol: 200-239 mg/dLHigh Cholesterol: greater than 239 mg/dL LDL Cholesterol Calculated 71 <100 mg/dL [facility] Comment:Desirable LDL: less than 100 mg/dLNear Optimal/Above Optimal LDL: 110- 129 mg/dLBorderline High LDL: 130-159 mg/dLHigh LDL: 160-189 mg/dLVery High LDL: greater than or equal to 190 mg/dL HDL Cholesterol 49 >40 mg/dL [facility] Comment:Desirable HDL: great er than 40 mg/dL Note: This HDL assay may give artificially low results in patients with liver disease. Blood Venous blood specimen / Unknown 10/03/2024 1:22 PM EST 10/03/2024 4:52 PM EST Hilda Talamantes MD LAB BLOOD ORDERABLES Final Result [facility] [address] [place] [phone] * Hm Colonoscopy (03/31/2023 1:12 PM EDT) us Historical Provider HEALTH MAINTENANCE Final Result from Last 3 Months or Most Recently Relevant to Health Maintenance Insurance [facility] STANDARD [place] [address] [place] [address] [place] [phone] [facility] ST[facility] ADULT Care Teams Turret Punch Operator Relationship Specialty Start Date End Date Hilda Hill MD [address] [place] [phone] PCP - General Family Medicine 09/03/18
--- OUTSIDE RECORDS SUMMARY | 2025-02-15 16:12 | XMS_ITS | Encounter Summary ---
Author Organization [employer] Address [address] [facility] 7t [place] [address] Care Team Providers Care Dairy Equipment Installer Name Role Phone Hilda Hill MD Primary Care Provide r Encounter Details Date Type Department Care Team (Latest Contact Info) Description 06/10/2019 Abstract [facility] CONVERSIONS Dental, Provider, DDS Social History Tobacco [...] Description 03/02/2025 10:00 AM EDT Office Visit [facility] ADULT DENTAL [address] [place] [address] Myron Lombardi DMD [address] [place] [address] 03/10/2025 11:00 AM EDT Office Visit [facility] MED[facility]INE [address] [place] [address] Rafita Montaño MD [address] [place] [address] documented as of this encounter Visit Diagnoses Not on filedocumented in this encounter Care Teams Dairy Equipment Installer Relationship Specialty Start Date End Date Hilda Hill MD [address] [place] [address] PCP - General Family Medicine 09/03/18 documented as of this encounter
--- OUTSIDE RECORDS SUMMARY | 2025-02-15 16:12 | XMS_ITS | Encounter Summary ---
Author Organization [employer] Address [address] [facility] 7t [place] [address] Care Team Providers Care Fine Grade Operator Name Role Phone Hilda Hill MD Primary Care Provide r Encounter Details Date Type Department Care Team (Latest Contact Info) Description 04/19/2021 Abstract [facility] CONVERSIONS Dental, Provider, DDS Social History [...] 03/02/2025 10:00 AM EDT Office Visit [facility] ADULT DENTAL [address] [place] [address] Myron Lombardi DMD [address] [place] [address] 03/10/2025 11:00 AM EDT Office Visit [facility] [address] [place] [address] Rafita Montaño MD [address] [place] [address] documented as of this encounter Visit Diagnoses Not on filedocumented in this encounter Care Teams Fine Grade Operator Relationship Specialty Start Date End Date Hilda Hill MD [address] [place] [address] PCP - General Family Medicine 09/03/18 documented as of this encounter
--- OUTSIDE RECORDS SUMMARY | 2025-02-15 16:12 | XMS_ITS | Encounter Summary ---
Author Organization [employer] Address [address] [facility] 7t [place] [address] Care Team Providers Care Role Player Name Role Phone Hilda Hill MD Primary Care Provide r Encounter Details Date Type Department Care Team (Latest Contact Info) Description 06/16/2022 Abstract [facility] CONVERSIONS Dental, Provider, DDS Social History [...] Description 03/02/2025 10:00 AM EDT Office Visit [facility] ADULT DENTAL [address] [place] [address] Myron Lombardi DMD [address] [place] [address] 03/10/2025 11:00 AM EDT Office Visit [facility] [address] [place] [address] Rafita Montaño MD [address] [place] [address] documented as of this encounter Visit Diagnoses Not on filedocumented in this encounter Care Teams Role Player Relationship Specialty Start Date End Date Hilda Hill MD [address] [place] [address] PCP - General Family Medicine 09/03/18 documented as of this encounter
--- OUTSIDE RECORDS SUMMARY | 2025-02-15 16:12 | XMS_ITS ---
Author Organization [facility] Address [address] [place] [address] Care Team Providers Care Information Security Risk Analyst Name Role Phone Silvestre Alexander, Hilda Primary Care Provider Yoseph Neil Jr REASON FOR VISIT screening, intermittent constipation Medications [...] Active Encounters Encounter Location Date Provider Diagnosis [facility] Outpatient [address] [place] [phone] 01/06/2024 Yoseph Green Jr Encounter for screening colonoscopy Z12.11 Assessments Encounter Date Diagnosis (ICD Code) Assessment Notes Treatment Notes Treatment Clinical Notes Section Notes 01/06/2024 Encounter for screening colonoscopy (ICD-10 - Z12.11) Plan Of Treatment No Information Progress Notes * OLIVIAGOLDIE FDOB: [birth year] (70 yo M)Acc No.[id number]:01/06/2024 COLON WITH MAC Patient:?GOLDIE BAKER Ayo Provider:?Yoseph Green MD :1955???Age:68 Y???Sex:Male John e:01/06/2024 Address:[address] [place] [address] [address] [facility] Pcp:Hilda Barciona, M.D. Subjective: * Chief Complaints: * ???1. Screening, intermitten t constipation. * Medical History:? * Medications:?Taking Vitamin D , Taking Vitamin C , Taking Probiotic , Taking Vitamin B Complex , Taking Multivitamin - Tablet 1 tablet Orally Once a day , Taking Levothyroxine Sodium 100 MCG Tablet TAKE 1 TABLET BY MOUTH EVERY DAY Oral , Taking Tamsulosin HCl 0.4 MG Capsule Oral Objective: * Vitals:? Assessment: * Assessment: 1.?Encounter for screening c olonoscopy - Z12.11 (Primary)??? Plan: * Treatment: * Procedure Codes:?77101 DIAGN OSTIC COLONOSCOPY, 0529F INTRVL 3+YRS PTS CLNSCP DOCD, Modifiers: 1P * * The named appointment provid er may or may not be the originator of this progress note, and it is not deemed complete until electronically signed by the appointment provider. Sign off status: Pending * Provider:?Yoseph Green MD Date:?0 01/06/2024 Generated for Benitez connor/Abdiel/Tia on:?02/15/2025 04:11 PM EDT
[2025-02-15 16:14] LABS: Iron 92 mcg/dL (45-160); Percent Iron Saturation 30 % (15-50); Total Iron Binding Capacity 311 mcg/dL (228-428); Unsaturated Iron Binding 219 ug/dL
[2025-02-15 16:58] LABS: Folate > 20.0 ng/mL (> or = 4.0)
== END 2025-02-15 13:36 | disposition home or self-care (01) ==
LOC: HO.HHCL 13:35
PROVIDERS: Visit Provider Internal Medicine
DX: D64.9 Anemia, unspecified (principal)
CPT/HCPCS: 36415; 82746; 83540; 85025

== ENCOUNTER 2025-07-01 13:01 | Outpatient (REF) | payer MEDICARE, MEDICAID, SELFPAY ==
--- OUTSIDE RECORDS SUMMARY | 2024-01-06 09:00 | XMS_ITS ---
Author Organization [facility] Address [address] [place] [address] Care Team Providers Care Data Sciences Director Name Role Phone Silvestre Alexander, Hilda Primary Care Provider Yoseph Neil Jr [phone] REASON FOR VISIT screening, intermittent constipation Medications [...] Active Encounters Encounter Location Date Provider Diagnosis [facility] [place] Outpatient [address] [place] [id number] 01/06/2024 Yoseph Green Jr Encounter for screening colonoscopy Z12.11 Assessments Encounter Date Diagnosis (ICD Code) Assessment Notes Treatment Notes Treatment Clinical Notes Section Notes 01/06/2024 Encounter for screening colonoscopy (ICD-10 - Z12.11) Plan Of Treatment No Information Progress Notes * GOLDIE BAKER FDOB: [birth year] (70 yo M)Acc No.[id number]:01/06/2024 COLON WITH MAC Patient: GOLDIE TABARES Provider: Usman Green MD :1955 A ge:68 Y S ex:Male Date:01/06/2024 Address:[address] [place] [address] [address], [facility] Pcp:Hilda Rivers M.D. Subjective: * Chief Complaints: [...] 0 01/06/2024 Generated for Benitez connor/Abdiel/Misbahitting on: 07/01/2025 01:03 PM EDT
--- OUTSIDE RECORDS SUMMARY | 2025-07-01 13:03 | XMS_ITS | Patient Health Record ---
Author Organization [facility] Address [address] [place] [address] Care Team Providers Care Wire Coating Machine Operator Name Role Phone Hilda Rivers M.D. Primary Care Provider Yoseph Neil Jr Unavailable [phone] Allergies No Known Allergies Reason For Referral [...] Problem Status W/U Status Risk Notes Problem [id number] Colon cancer screening (Z12.11) Active confirmed Problem [id number] Intermittent constipation (K59.09) Active confirmed Plan Of Treatment Future Test Test Name Order Date COLONOSCOPY 12/10/2023 Insurance Providers Payer Name Payer Address Payer Phone Subscriber Number Group Number Insured Name Patient Relationship to Insured Coverage Start Date Coverage End Date MEDICARE OF [employer] [address] [id number] [phone] [id number] GOLDIE BAKER Self - patient is the insured MEDICAID OF [facility] [address] [place] [phone] [id number] GOLDIE BAKER Self - patient is the insured Medical (General) History Medical History History ICD Code BARNARD with post-ablative hypothyroidism BPH with 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
--- OUTSIDE RECORDS SUMMARY | 2025-07-01 13:03 | XMS_ITS | Clinical Summary ---
Author Organization [facility] Address [address] [address] Phone Care Team Providers Care Metal Ceiling Hanger Name Role Phone Unavailable Primary Care Provider Unavailabl e Social History Tobacco Use Types Packs/Day Years Used Date Smoking Tobacco: Never Assessed Education Answer Date Recorded Are you interested in more education? Not on ewa e 10/30/2023 Are you concerned about learning? Not on file 10/30/2023 No 10/30/2023 No 10/30/2023 Digital Access Answer Date Recorded No 10/30/2023 No 10/30/2023 Reliable internet access at home? Not on file 10/30/2023 Device with a working camera? Not on file Sex and Gender Information Value Date Recorded Sex Assigned at Not on file Legal Sex Male 9:59 PM EDT Gender Identity Not on file Sexual Orientation Not on file Plan of Treatment Not on file Medical Devices Not on file Insurance [facility] MEDICARE PART A & B [place] [facility] [place] A & [place] & [facility] MEDICARE PART A & B Additional Source Comments The information contained in this document represents components of the legal health record. It is not the complete legal health record.[facility]
[2025-07-01 16:21] LABS: Prostate Specific Antigen 1.21 ng/mL (<0.05-4.0)
== END 2025-07-01 13:02 | disposition home or self-care (01) ==
LOC: HO.HMGCLDS 13:01
PROVIDERS: PCP Internal Medicine; Visit Provider Nurse Practitioner Family
DX: N40.0 Benign prostatic hyperplasia without lower urinary tract symptoms (principal); Z12.5 Encounter for screening for malignant neoplasm of prostate
CPT/HCPCS: 36415; 84153

== ENCOUNTER 2025-07-03 14:25 | Outpatient (AMB) | payer MEDICARE, MEDICAID, SELFPAY ==
--- OUTSIDE RECORDS SUMMARY | 2024-01-06 09:00 | XMS_ITS ---
Author Organization [facility] Address [address] [place] [address] Care Team Providers Care Software Development Leader Name Role Phone Silvestre Alexander, Hilda Primary Care Provider Yoseph Neil Jr [phone] REASON FOR VISIT screening, intermittent constipation Medications Medication SIG (Take, Route, Frequency, Duration) Notes Start Date End Date Status Probiotic Active Multivitamin - 1 tablet Orally Once a day for 30 day(s) Active Vitamin B Complex Ac tive Levothyroxine Sodium 100 MCG TAKE 1 TABL ET BY MOUTH EVERY DAY Oral for 90 Active Tamsulosin HCl 0.4 MG Oral for 30 Active Vitamin D Active Vitamin C Active Encounters Encounter Location Date Provider Diagnosis [facility] [place] Out[place] [address] [place] [id number] 01/06/2024 Yoseph Green Jr Encounter for screening colonoscopy Z12.11 Assessments Encounter Date Diagnosis (ICD Code) Assessment Notes Treatment Notes Treatment Clinical Notes Section Notes 01/06/2024 Encounter for screening colonoscopy (ICD-10 - Z12.11) Plan Of Treatment No Information Progress Notes * GOLDIE BAKER FDOB: [birth year] (70 yo M)Acc No.[id number]:01/06/2024 COLON WITH MAC Patient: GOLDIE TABARES Provider: Usman Green MD :1955 A ge:68 Y S ex:Male Date:01/06/2024 Address:[address] [place] [address] [address], [facility] Pcp:Hilda Rivers M.D. Subjective: * Chief Complaints: * 1 . Screening, intermittent constipation. * Medical History: * Medications: T aking Vitamin D , Taking Vitamin C , Taking Probiotic , Taking Vitamin B Complex , Taking Multivitamin - Tablet 1 tablet Orally Once a day , Taking Levothyroxine Sodium 100 MCG Tablet TAKE 1 TABLET BY MOUTH EVERY DAY Oral , Taking Tamsulosin HCl 0.4 MG Capsule Oral Objective: * Vitals: Assessment: * Assessment: 1. E ncounter for screening colonoscopy - Z12.11 (Primary) Plan: * Treatment: * Procedure Codes: 4 5378 DIAGNOSTIC COLONOSCOPY, 0529F INTRVL 3+YRS PTS CLNSCP DOCD, Modifiers: 1P * * The named appointment provid er may or may not be the originator of this progress note, and it is not deemed complete until electronically signed by the appointment provider. Sign off status: Pending * Provider: Usman Green MD Date: 0 01/06/2024 Generated for Benitez connor/Abdiel/Misbahitting on: 0 07/03/2025 04:48 PM EDT
--- NOTE | 2025-07-03 14:35 | A.OFFVIS_ITS ---
Intake Visit Reasons: 1 yr/ PSA Intake Note: Patient is present for 1Y/PSA Urology Medication:NONE Antibiotic Allergy:NONE Blood Thinner:NONE Helix Coil Winder Required: No Allergies No Known Allergies Allergy (Verified 07/03/25 15:10) Medication List - Last Reconciled 07/03/25 by GLORIA No ascorbic acid (vitamin C) (Vitamin C) 500 mg PO DAILY blood pressure test kit-large As directed cholecalciferol (vitamin D3) 25 mcg PO DAILY lactobacillus combination no.4 (Probiotic) 3,000 mmu cells PO DAILY levothyroxine 100 mcg PO DAILY@0600 multivitamin 1 tab PO DAILY omega-3 fatty acids 500 mg PO DAILY vitamin B complex 1 tab PO DAILY HPI Comments Details: Michael Dasilva is a pleasant 70 year-old male patient of Dr. Silvestre Talamantes. He has a past medical history of back pain, anxiety, depression, chronic hep C, history of heroin abuse in remission, and hypothyroidism. He presents to the office today for a follow up. In discussion with the patient today he reports to be doing and feeling well. He currently denies any bothersome urinary issues or concerns. He does feel he goes to the bathroom frequent Yesenia throughout the day however does not find this bothersome and feels he is self managing. Recent PSA results were reviewed with the patient today as noted and trended below. Previous workup has included a retroperitoneal ultrasound 11/18 noting bilateral kidneys with no calculi, lesions, and or hydronephrosis. The bladder is well distended. Bilateral ureteral jets are demonstrated. Pre void bladder volume is approximately 185 mL. Postvoid bladder volume is approximately 15 mL. The bladder wall thickness is 7 mm with some edematous changes noted. Prostate measures approximately 42 mL. Discussed at length bladder wall thickening and prostatomegaly. PSA and testosterone are as follows: PSAs 03/13 1.3, 09/17 1.8 % free PSA 22%, 06/18 1.3, 07/20 1.2 Testosterone 03/13 678 Free testosterone 03/13 68.5 In office urinalysis results reviewed with the patient today. Patient previously trialed Flomax however did not feel this was necessary as he did not feel any bothersome urinary issues. When asked he denies urinary urgency, nocturia, incontinence, hematuria, dysuria, foul smelling urine, flank pain, fever, and or chills. He is happy with his current voiding parmaters. He discusses having recently followed up with instructor warper and has underwent colonoscopy and continues to follow-up regarding his anemia. He otherwise offers no other issues or concerns at this time. [facility] Medical History Urinary frequency Bilateral hydrocele Encounter for screening colonoscopy Back pain Anxiety and depression Chronic viral hepatitis C History of heroin abuse Postablative hypothyroidism Surgical History Hx of hernia repair Hx of colonoscopy Hx of laparoscopy Hx of eye surgery Hx of Achilles tendon repair Hx of cervical spine surgery Hx of arthroscopy Hx of inguinal hernia surgery Family History Father No problems noted. Mother Emphysema lung Social History Household Members: None Alcohol intake: never Patient Tobacco Use Status: Never used Tobacco Substance Use Type: Heroin Current occupational status: retired Review of Systems Const All systems reviewed & are unremarkable except as noted in HPI and below Reports as per HPI Eyes Reports no additional complaints ENT Reports no additional complaints Card Reports no additional complaints Resp Reports no additional complaints GI Reports as per HPI Reports as per HPI Musc Denies no additional complaints Neuro Reports no additional complaints Psych Reports as per HPI Endo Reports as per HPI Ramesh/Lymph Reports no additional complaints Aller/Immun Reports no additional complaints Physical Exam Const General: cooperative, healthy appearing, comfortable, no acute distress, well developed, alert and awake Nutritional Appearance: average body habitus Orientation/consciousness: patient oriented x3 Limitations: no limitations HEENT Head: Yes normal to inspection, Yes normocephalic and Yes atraumatic Ears: hearing grossly normal bilaterally Eyes General: appearance normal, both eyes and all related structures Neck Neck: Yes normal visual inspection and Yes trachea midline Chest Chest palpation & inspection: normal inspection of the chest Resp Effort & Inspection: normal respiratory effort and able to speak in complete sentences Cardio Rate: regular rate GI Inspection: Yes normal to inspection General: Yes no CVA tenderness Back/Spine/Pelvis Back: no CVA tenderness Skin General skin exam: no rashes or lesions noted Neuro General: patient oriented x3 Extrem General: Yes normal to inspection Psych Appearance: grossly normal and well kempt Mental Status: mental status grossly normal Speech and movement: Normal speech and movement present and Clear speech present Affect: normal affect Attitude: cooperative Thought process: Normal thought process present Thought content: Normal thought content present Insight: Fair insight present (Psych) Judgement: Fair judgement present (Psych) Assessment & Plan Assessment & Plan (1) Enlarged prostate: Code(s): N40.0 - Benign prostatic hyperplasia without lower urinary tract symptoms Category: Medical (2) Bladder wall thickening: Code(s): N32.89 - Other specified disorders of bladder Category: Medical Plan In office urinalysis results reviewed with today; as noted above. Patient currently denies any bothersome urinary issues or concerns. He reports be happy with current voiding parameters. Recent PSA results reviewed with the patient today; as noted above. Will continue with surveillance monitoring. Discussed bladder triggers/irritants. All questions were answered Will continue limiting fluids 2-3 hours prior to bed Will obtain PSA in 1 year Follow-up in 1 year with PSA and PVR to be completed prior; or sooner with any issues, concerns, and or questions. Orders: Orders AMB Urinalysis Automated Today Z13.9 - Encounter for screening, unspecified Prostate Specific Antigen 1 Year N40.0 - Benign prostatic hyperplasia without lower urinary tract symptoms Patient Instructions: The patient had an opportunity to ask questions regarding the treatment plan. All questions were answered. Physical exam, labs, and imaging were discussed and reviewed in detail. As well as risks, benefits, and discussion of treatment choices. No major barriers to understanding were identified. The patient expressed understanding and agreement with the above treatment plan. The patient was made aware they should contact our office by phone for worsening of their current condition, the appearance of new symptoms, or with any questions or concerns. Compliance is encouraged with any medications and follow up testing that is ordered. It is a privilege to be allowed the opportunity to participate in? your urological care.? Again, if you have any questions or concerns If you have any questions or concerns please do not hesitate to contact me. The office is [phone]. This note is constructed using voice recognition software. While every effort has been made to ensure accuracy complex manager errors may have been included. Yours sincerely, GLORIA No Coding Level of Care Code Est Pt Level 3 (86583) Complex EM visit Add On G2211 Diagnoses Enlarged prostate N40.0 Bladder wall thickening N32.89
--- OUTSIDE RECORDS SUMMARY | 2025-07-03 16:49 | XMS_ITS | Encounter Summary ---
Author Organization [employer] Address [address] [facility] [address] [place] [address] Care Team Providers Care Custodial Maintenance Worker Name Role Phone Hilda Hill MD Primary Care Provide r Encounter Details Date Type Department Care Team (Latest Contact Info) Description 06/16/2022 Abstract [facility] CONVERSIONS Dental, Provider, DDS Social History [...] Care Team (Late st Contact Info) Description 07/31/2025 1:45 PM EDT Office Visit [facility] MEDICINE [address] [place] [phone] Hilda Hlil MD [address] [place] [phone] 08/04/2025 4:00 PM EDT Office Visit [facility] MEDICINE [address] [place] [phone] Rafita Montaño MD [address] [place] [address] 09/15/2025 3:00 PM EST Office Visit [facility] ADULT DENTAL [address] [place] [phone] Phoebe Farris [address] [place] [address] documented as of this encounter Visit Diagnoses Not on filedocumented in this encounter Care Teams Custodial Maintenance Worker Relationship Specialty Start Date End Date Hilda Hill MD [address] [place] [address] PCP - General Family Medicine 09/03/18 documented as of this encounter
--- OUTSIDE RECORDS SUMMARY | 2025-07-03 16:49 | XMS_ITS | Encounter Summary ---
Author Organization [employer] Address [address] [facility] [address] [place] [address] Care Team Providers Care Stonemason Supervisor Name Role Phone Hilda Hill MD Primary Care Provide r Encounter Details Date Type Department Care Team (Late Contact Info) Description 07/01/2025 Orders Only GENERIC EXTERNAL DATA DEPARTMENT Provider, Generic External Data Social History Tobacco Use Types Packs/Day Years [...] is your housing situation today? I have brittanyserge alcala 09/01/[address] you [...] Description 07/31/2025 1:45 PM EDT Office Visit [facility] MEDICINE [address] [place] [phone] Hilda Hill MD [address] [place] [address] 08/04/2025 4:00 PM EDT Office Visit [facility] MEDICINE [address] [place] [address] Rafita Montaño MD [address] [place] [address] 09/15/2025 3:00 PM EST Office Visit [facility] ADULT DENTAL [address] [place] [address] Phoebe Farris [address] [place] [address] documented as of this encounter Procedures Procedure Name Priority Date/Time Associated Diagnosis Comments PSA, TOTAL Routine 07/01/2025 1:17 PM EDT documented in this encounter Results * PSA,Total (07/01/2025 1:17 PM EDT) Prostate Specific Antigen 1.21 <0.05 - 4.0 ng/mL [facility] Comment:PSA methodology: Abb kristen Alileo i ChemiluminescentMicroparticle Immunoassay (CMIA) 07/01/2025 1:17 PM EDT 07/01/2025 3:26 PM EDT us Generic External Data Provider LAB BLOOD ORDERAB LES Final Result [facility] [address] [place] [address] [phone] documented in this encounter Visit Diagnoses Not on filedocumented in this encounter Additional Health Concerns Assessment Noted Time PHQ-9 Depression Total Score: 0 02/01/20 24 10:03 AM EDT documented as of this encounter Care Teams Stonemason Supervisor Relationship Specialty Start Date End Date Hilda Hill MD [address] [place] [phone] PCP - General Family Medicine 09/03/18 documented as of this encounter
--- OUTSIDE RECORDS SUMMARY | 2025-07-03 16:49 | XMS_ITS | Encounter Summary ---
Author Organization [employer] Address [address] [facility] [address] [place] [address] Care Team Providers Care Wood Veneer Taper Name Role Phone Hilda Hill MD Primary Care Provide r Encounter Details Date Type Department Care Team (Latest Contact Info) Description 06/10/2019 Abstract [facility] CONVERSIONS Dental, Provider, DDS Social History [...] Description 07/31/2025 1:45 PM EDT Office Visit [facility] MEDICINE [address] [place] [phone] Hilda Hill MD [address] [place] [phone] 08/04/2025 4:00 PM EDT Office Visit [facility] MEDICINE [address] [place] [address] Rafita Montaño MD [address] [place] [address] 09/15/2025 3:00 PM EST Office Visit [facility] ADULT DENTAL [address] [place] [phone] Phoebe Alexander [address] [place] [address] documented as of this encounter Visit Diagnoses Not on filedocumented in this encounter Care Teams Wood Veneer Taper Relationship Specialty Start Date End Date Hilda Hill MD [address] [place] [address] PCP - General Family Medicine 09/03/18 documented as of this encounter
--- OUTSIDE RECORDS SUMMARY | 2025-07-03 16:49 | XMS_ITS | Encounter Summary ---
Author Organization [employer] Address [address] [facility] [address] [place] [address] Care Team Providers Care Asphalt Mixer Name Role Phone Hilda Hill MD Primary Care Provide r Reason for Visit * Reason Onset Date Comments Call Back Request 11/18/2023 Encounter Details Date Type Department Care Team ([facility] Contact Info) Description 11/18/2023 Telephone [facility] MEDICINE [address] [place] [address] Hilda Hill MD [address] [place] [address] Call Back Request Social History Tobacco Use [...] 2:53 PM EST TC placed to pt [phone] in regards to ortho referral. Pt reports [place] [facility] [facility] [place] pt and advised him he had to be seen at [facility] because that is where he was [...] pt has requested. Please contact pt at [phone] documented in this encounter Plan of Treatment Upcoming Encounters Date Type Department Care Team (Late st Contact Info) Description 07/31/2025 1:45 PM EDT Office Visit [facility] MEDICINE [address] [place] [address] Hilda Hill MD [address] [place] [address] 08/04/2025 4:00 PM EDT Office Visit [facility] MEDICINE [address] [place] [address] Rafita Montaño MD [address] [place], [place] [phone] 09/15/2025 3:00 PM EST Office Visit [facility] ADULT DENTAL [address] [place], [place] [phone] Phoebe Farris [address] [place] [address] documented as of this encounter Visit Diagnoses Not on filedocumented in this encounter Care Teams Asphalt Mixer Relationship Specialty Start Date End Date Hilda Hill MD [address] [place] [address] [phone] PCP - General Family Medicine 09/03/18 documented as of this encounter
--- OUTSIDE RECORDS SUMMARY | 2025-07-03 16:49 | XMS_ITS | Clinical Summary ---
Author Organization [facility] Address [address] [address] Phone Care Team Providers Care Director Of Billing Name Role Phone Unavailable Primary Care Provider [...] file Medical Devices Not on file Insurance [facility] MEDICARE PART A & B [place] [facility] A [place] & B [facility] MEDICARE PART A & B [facility] MEDICARE PART A & B Additional Source Comments The information contained in this document represents components of the legal health record. It is not the complete legal health record.[facility]
--- OUTSIDE RECORDS SUMMARY | 2025-07-03 16:49 | XMS_ITS | Patient Health Record ---
Author Organization [facility] Address [address] [place] [address] Care Team Providers Care Utilization Management Um Nurse Name Role Phone Hilda Rivers M.D. Primary [...] Problem Status W/U Status Risk Notes Problem [id number] Colon cancer screening (Z12.11) Active confirmed Problem [id number] Intermittent constipation (K59.09) Active confirmed Plan Of Treatment Future Test Test Name Order Date COLONOSCOPY 12/10/2023 Insurance Providers Payer Name Payer Address Payer Phone Subscriber Number Group Number Insured Name Patient Relationship to Insured Coverage Start Date Coverage End Date MEDICARE OF [employer] [address] [id number] [phone] [id number] GOLDIE BAKER Self - patient is the insured MEDICAID OF [facility] [address] [place] [address] [id number] GOLDIE BAKER Self - patient is the insured Medical (General) History Medical History History ICD Code BARNARD with post-ablative hypothyroidism BPH with 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
--- OUTSIDE RECORDS SUMMARY | 2025-07-03 16:49 | XMS_ITS | Clinical Summary ---
Author Organization [employer] Address [address] [facility] [address] [place] [address] Care Team Providers Care Low Pressure Firer Name Role Phone Hilda Hill MD Primary Care Provide r Allergies No known active allergies Medications * This document contains information received from the source organization and may not represent a complete record from that organization. cholecalciferol (Vitamin D-3) 25 MCG (1000 UT) tablet Take 1 tablet by mouth 1 (one) time each day. 1 Active Multiple Vitamins-Minera ls (Multivitamin Adult) chewable tablet Chew 1 tablet [...] EVERY DAY 90 tablet 1 5 Active ketoconazole (NIZOral) 2 % shampooIndicati ons:Seborrheic dermatitis Apply topically 2 (two) times a week. 120 mL 5 Active hydrocortisone 2.5 % creamIndication s:Seborrheic dermatitis Apply topically 2 times daily. 20 g 5 Active Active Problems Problem Noted Date Diagnosed [...] Counseling done I will refer patient to [facility] Patient declines medications Acute pain of left [...] 11/12/2023 Need for assistance with personal care 4 11/12/2023 Abnormal PSA 09/14/2023 Dyslipidemia 09/14/2023 Assessment [...] Encounters Date Type Department Care Team Description 07/01/2025 Orders Only GENERIC EXTERNAL DATA DEPARTMENT Provider, Generic External Data 06/22/2025 Telephone [facility] [address] [place] [phone] Stefano Francois MD 06/21/2025 11:20 AM EDT Office Visit [facility] [address] [place] [address] [phone] Stefano Francois MD Skin lesion of face (Primary Dx); Elevated blood pressure reading in office without diagnosis of hypertension 06/21/2025 Travel 06/20/2025 Telephone [facility] [address] [place] [phone] Hilda Hill MD telephone call 05/09/2025 Telephone [facility] [address] [place] [phone] Hilda Hill MD OCT RECALL 04/19/2025 10:00 AM EDT Office Visit [facility] [address] [place] [phone] Myron Lombardi DMD 04/07/2025 9:00 AM EDT Office Visit [facility] [address] [place] [phone] Myron Lombardi DMD from Last 3 Months Immunizations Immunization Administration Dates Next Due Hep A, ped/adol, [...] Sign Reading Time Taken Comments Blood Pressure 156/80 06/21/2025 11:12 AM EDT Pulse 60 06/21/2025 11:12 AM EDT Temperature 36.4 C (97.6 F) 06/21/2025 11:12 AM EDT Respiratory Rate 18 06/21/2025 11:12 AM EDT Oxygen Saturation 99% 06/21/2025 11:12 AM EDT Inhaled Oxygen Concentration - - Weight 62.6 kg (138 lb) 06/21/2025 11:12 AM EDT Height 170.2 cm (5' 7 ) 12/07/2024 2:39 PM EST Body Mass Index 21.61 12/07/2024 2:39 PM EST Plan of Treatment Upcoming Encounters Date Type Department Care Team (Late st Contact Info) Description 07/31/2025 1:45 PM EDT Office Visit [facility] [address] [place] [phone] Hilda Hill MD [address] [place] [address] 08/04/2025 4:00 PM EDT Office Visit [facility] [address] [place] [address] [phone] Rafita Montaño MD [address] [place] [address] 09/15/2025 3:00 PM EST Office Visit [facility] [address] [place] [address] Phoebe Farris [address] [place] [address] Health Maintenance Due Date Last Done Comments CT Colonography 1953 FIT DNA/Cologuard 1953 FIT 1955 FOBT 1955 Sigmoidoscopy 1955 Hepatitis A Vaccines (1 of 2 - Risk 2-dose series) 02/14/1972 08/24/2003, 02/08/2003 Hepatitis B Vaccines (1 of 3 - Risk 3-dose series) 2013 RSV Patients and Patients Aged 60 years or older (1 - Risk 60-74 years 1-dose series) 2013 Dental Oral Exam 11/28/2024 05/27/2024, , 06/16/2022 Depression Screening 01/31/2025 02/01/2024, 02/01/20 24 Derm Melanoma Skin Check 03/09/2025 09/09/2024, 08/26 COVID-19 Vaccine ( season) 2025 09/09/2024, 09/07/2023, 09/02/2022, Additional history exists Influenza Vaccine (#1) 2025 , 08/28/2023, 09/02/2022, Additional history exists Dental X-Ray: Bitewings 07/09/2025 07/08/20 24, 05/27/2024, 09/16/2023, Additional history exists Dental Prophylaxis 08/02/2025 01/30/2025, 1 , 09/16/2023, Additional history exists SDOH Screening 09/01/2025 09/01/2024 Alcohol/Substance Use Screening 09/09/2025 09/09/2024 Tobacco Screening 06/21/2026 06/21/2025 Dental X-Ray: Full Mouth 09/17/2026 09/16/2023, 05/26 DTaP/Tdap/Td Vaccines (3 - Td or Tdap) 03/16/2029 03/16/2019, 06/26/2015 Lipid Panel 10/03/2029 10/03/2024, 11/27, 09/04/2023, Additional history exists Colonoscopy 01/05/2034 01/06/2024, 03/31/2023 Colorectal Cancer Screening 01/05/2034 Pneumococcal Vaccine: 50+ Years Completed 08/28/2023 Zoster Vaccines Completed 11/10/2023, 08/26, 11/28/2016 Anal Pap Discontinued HIB Vaccines Aged Out No longer eligi ble based on patient's age to complete this topic HPV Vaccines Aged Out No longer eligi ble based on patient's age to complete this topic IPV Vaccines Aged Out No longer eligi ble based on patient's age to complete this topic Meningococcal B Vaccine Aged Out No l onger eligible based on patient's age to complete [...] PSA, TOTAL Routine 07/01/2025 1:17 PM EDT CASE PRESENTATION, DETAILED AND EXTENSIVE TREATMENT PLANNING Routine 04/19/2025 10:00 AM EDT 24 CROWN - PORCELAIN/CERAMIC Routine 04/19/2025 10:00 AM EDT 24 CROWN PREP Routine 04/07/2025 9:00 AM EDT PROPHYLAXIS - ADULT Routine 01/30/2025 1 :00 PM EDT Generalized gingival recession Dental plaque LIPID PANEL, STANDARD Routine 10/03/2024 1:22 PM EST Dyslipidemia BITEWING - SINGLE RADIOGRAPHIC IMAGE Routine 07/08/2024 10:00 AM EDT Closed fracture of tooth, initial encounter PERIODIC ORAL EVALUATION - ESTABLISHED PATIENT Routine 05/27/2024 11:00 AM EDT HM COLONOSCOPY Routine 01/06/2024 INTRAORAL - COMPLETE SERIES OF RADIOGRAPHIC IMAGES Routine 09/16/2023 2:00 PM EST Generalized gingival recession Dental plaque from Last 3 Months or Most Recently Relevant to Health Maintenance Results * PSA,Total (07/01/2025 1:17 PM EDT) Prostate Specific Antigen 1.21 <0.05 - 4.0 ng/mL [facility] Comment:PSA methodology: Abb kristen Nuñez i ChemiluminescentMicroparticle Immunoassay (CMIA) 07/01/2025 1:17 PM EDT 07/01/2025 3:26 PM EDT us Generic External Data Provider LAB BLOOD ORDERAB LES Final Result [facility] [address] [place] [phone] * Lipid Panel, Standard (10/03/2024 1:22 PM EST) Triglycerides 138 <150 mg/dL [facility] Comment:Desirable Triglyceri de: less than 150 mg/dLBorderline High Triglyceride 150-199 mg/dLHigh Triglyceride: 200-499 mg/dLVery High Triglyceride: greater than or equal to 5OO mg/dL Cholesterol 147 <200 mg/dL [facility] Comment:Desirable Cholestero l: less than 200 mg/dLBorderline High Cholesterol: 200-239 mg/dLHigh Cholesterol: greater than 239 mg/dL LDL Cholesterol Calculated 71 <100 mg/dL [facility] Comment:Desirable LDL: less than 100 mg/dLNear Optimal/Above Optimal LDL: 110- 129 mg/dLBorderline High LDL: 130-159 mg/dLHigh LDL: 160-189 mg/dLVery High LDL: greater than or equal to 190 mg/dL HDL Cholesterol 49 >40 mg/dL [facility] Comment:Desirable HDL: great er than 40 mg/dL Note: This HDL assay may give artificially low results in patients with liver disease. Blood Venous blood specimen / Unknown 10/03/2024 1:22 PM EST 10/03/2024 4:52 PM EST Hilda Talamantes MD LAB BLOOD ORDERABLES Final Result [facility] [address] [place] [phone] * Hm Colonoscopy (01/06/2024) Colonoscopy Normal Normal Narrative Brianna Hawk - 01/06/2024 Recommended 10 years. See see external hospital admission note on 01/06/2024 us Historical Provider HEALTH MAINTENANCE Final Result from Last 3 Months or Most Recently Relevant to Health Maintenance Insurance [facility] STANDARD [facility]IC[facility] ADULT Care Teams Low Pressure Firer Relationship Specialty Start Date End Date Hilda Hill MD [address] [place] [phone] PCP - General Family Medicine 09/03/18
--- OUTSIDE RECORDS SUMMARY | 2025-07-03 16:49 | XMS_ITS | Encounter Summary ---
Author Organization [employer] Address [address] [facility] [facility] [address] [place] [address] Care Team Providers Care Clinical Transformation Specialist Name Role Phone Hilda Hill MD Primary Care Provide r Encounter Details Date Type Department Care Team (Late st Contact Info) Description 04/22/2024 Orders Only [facility] [address] [place] [address] ProviderTeresa MD Social History Tobacco Use Types [...] the past 12 months, has t he [employer], gas, oil or water company threatened to [...] Description 07/31/2025 1:45 PM EDT Office Visit [facility] [address] [place] [address] Hilda Hill MD [address] [place] [address] 08/04/2025 4:00 PM EDT Office Visit [facility] [address] [place] [address] Rafita Montaño MD [address] [place] [address] 09/15/2025 3:00 PM EST Office Visit [facility] [address] [place] [address] Andre Farrisaris [address] [place] [address] documented as of this encounter Procedures Procedure [...] documented as of this encounter Care Teams Clinical Transformation Specialist Relationship Specialty Start Date End Date Hilad Hill MD [address] [place] [phone] PCP - General Family Medicine 09/03/18 documented as of this encounter
--- OUTSIDE RECORDS SUMMARY | 2025-07-03 16:49 | XMS_ITS | Encounter Summary ---
Author Organization [employer] Address [address] [facility] 7t [place] [address] Care Team Providers Care Awning Maker And Installer Name Role Phone Hilda Hill MD Primary Care Provide r Encounter Details Date Type Department Care Team ([facility] Contact Info) Description 02/12/2023 Orders Only [facility] [address] [place] [phone] Nadja Beatty LPN Social History Tobacco Use [...] Upcoming Encounters Date Type Department Care Team ([facility] Contact Info) Description 07/31/2025 1:45 PM EDT Office Visit [facility] [address] [place] [phone] Hilda Hill MD [address] [place] [address] 08/04/2025 4:00 PM EDT Office Visit [facility] [address] [place] [address] Rafita Montaño MD [address] [place] [address] 09/15/2025 3:00 PM EST Office Visit [facility] ADULT DENTAL [address] [place] [address] Phoebe Farris [address] [place] [address] documented as of this encounter Procedures Procedure Name Priority Date/Time Associated Diagnosis Comments HIGH SENSITIVITY TROPONIN I Routine 10/25/2023 12:07 PM EST CBC WITH AUTO DIFFERENTIAL Routine 10/25/2023 12:07 PM EST BASIC METABOLIC PANEL Routine 10/25/2023 12:07 PM EST documented in this encounter Results * High Sensitivity Troponin I (10/25/2023 12:07 PM EST) Pathologist [facility] TROPONIN I HIGH SENSITIVITY 2.7 <3.5 - 35.0 ng/L [facility] Comment:The Mckinnon high sens itivity Troponin-I results should beused in conjunction with other diagnostic information suchas ECG, clinical observations and information, and patientsymptoms to aid in the diagnosis of NC. 10/25/2023 12:0 7 PM EST 10/25/2023 12:12 PM EST Generic External Data Provider LAB BLOOD ORDERAB LES Final Result [facility] [address] [place] [address] [phone] * (ABNORMAL) Basic Metabolic Panel (10/25/2023 12:07 PM EST) [facility] Sodium 138 135 - 145 mmol/L [facility] Potassium 4.3 3.3 - 5.1 mmol/L [facility] Chloride 104 96 - 108 mmol/L [facility] Carbon Dioxide 26 22 - 29 mmol/L [facility] Anion Gap 12 12 - 20 [facility] Urea Nitrogen (BUN) 18(H) 9 - 16 mg/dL [facility] Creatinine, Serum 0.94 0.5 - 1.4 mg/dL [facility] Creatinine Clr Calc Pharmacy 67.0 [facility] Comment:eGFR (calculated fro m the MDRD study equation) and eCrCl(calculated from the Cockcroft-Gault equation) are based ondifferent parameters and may not yield comparable results.If eCrCl result is absurd, please check patient'sheight/weight. Estimated Glomerular Filt Rate >60 [facility] Comment:NOTE: For -Am erican individuals, multiply the result by 1.210.Chronic Kidney Disease: Estimated GFR < 60 mL/min/1.88g5Afkmkq Kidney Disease: Estimated GFR < 15 mL/min/1.73m2 Glucose 134(H) 60 - 115 mg/dL [facility] Calcium 9.7 8.4 - 10.2 mg/dL [facility] 10/25/2023 12:0 7 PM EST 10/25/2023 12:12 PM EST us Generic External Data Provider LAB BLOOD ORDERAB LES Final Result [facility] [address] [place], [place] [phone] * (ABNORMAL) CBC auto differential (10/25/2023 12:07 PM EST) White Blood Count 11.2(H) 4.8 - 10.8 X10*3/uL [facility] Red Blood Count 4.70 4.60 - 5.80 X10*6/uL [facility] Hemoglobin 13.7(L) 14.0 - 18.0 g/dl [facility] Hematocrit 40.0(L) 42.0 - 52.0 % [facility] Mean Corpuscular Volume 85.1 80.0 - 98.0 fL [facility] Mean Corpuscular Hemoglobin 29.1 27.0 - 33.0 pg [facility] Mean Corpuscular HGB Conc 34.3 31.0 - 36.0 g/dl [facility] Red Cell Distribution Width 13.6 11.0 - 16.0 % [facility] Platelet Count 234 160 - 400 X10*3/uL [facility] Mean Platelet Volume 9.0(L) 9.4 - 12.4 fL [facility] Neutrophils Percent Auto 79.8(H) 45 - 73 % [facility] Imm Gran Pct Auto 0.5(H) 0.0 - 0.4 % [facility] Lymphocytes Percent Auto 12.4(L) 20 - 40 % [facility] Monocytes Percent Auto 7.2 2 - 11 % [facility] Eosinophils Percent Auto 0.0 0 - 4 % [facility] Basophils Percent Auto 0.1 0 - 2 % [facility] NRBC Pct Auto 0.0 0.0 - 0.2 /100WBC [facility] Neutrophils Absolute Auto 8.9(H) 2.0 - 8.3 x10*3/uL [facility] Imm Gran Abs Auto 0.06(H) 0.00 - 0.03 X10*3/uL [facility] Lymphocytes Absolute Auto 1.4 1.2 - 4.9 X10*3/uL [facility] Monocytes Absolute Auto 0.8 0.1 - 1.2 X10*3/uL [facility] Eosinophils Absolute Auto 0.0 0.0 - 0.4 X10*3/uL [facility] Basophils Absolute Auto 0.0 0.0 - 0.2 X10*3/uL [facility] NRBC Abs Auto 0.000 0.0 - 0.012 X10*3/uL [facility] 10/25/2023 12:0 7 PM EST 10/25/2023 12:12 PM EST us Generic External Data Provider LAB BLOOD ORDERAB LES Final Result [facility] [address] [place] [address] [phone] documented in this encounter Visit Diagnoses Not on filedocumented in this encounter Care Teams Awning Maker And Installer Relationship Specialty Start Date End Date Hilda Hill MD [address] [place] [address] PCP - General Family Medicine 09/03/18 documented as of this encounter
--- OUTSIDE RECORDS SUMMARY | 2025-07-03 16:49 | XMS_ITS | Encounter Summary ---
Author Organization [employer] Address [address] [facility] [address] [place] [address] Care Team Providers Care Sustainability Executive Director Name Role Phone Hilda Hill MD Primary Care Provide r Encounter Details Date Type Department Care Team (Latest Contact Info) Description 04/19/2021 Abstract [facility] CONVERSIONS Dental, Provider, DDS Social History [...] Description 07/31/2025 1:45 PM EDT Office Visit [facility] [address] [place] [phone] Hilda Hill MD [address] [place] [phone] 08/04/2025 4:00 PM EDT Office Visit [facility] [address] [place] [phone] Rafita Montaño MD [address] [place] [phone] 09/15/2025 3:00 PM EST Office Visit [facility] ADULT DENTAL [address] [place] [phone] Phoebe Farris [address] [place] [address] documented as of this encounter Visit Diagnoses Not on filedocumented in this encounter Care Teams Sustainability Executive Director Relationship Specialty Start Date End Date Hilda Hill MD [address] [place] [address] PCP - General Family Medicine 09/03/18 documented as of this encounter
== END 2025-07-03 15:12 | disposition home or self-care (01) ==
LOC: HO.HUSH 14:26
PROVIDERS: PCP Internal Medicine; Visit Provider Nurse Practitioner Family
DX: N40.0 Benign prostatic hyperplasia without lower urinary tract symptoms (principal); N32.89 Other specified disorders of bladder; Z13.9 Encounter for screening, unspecified
CPT/HCPCS: 99213; G2211

== ENCOUNTER → 2025-07-03 14:25 | Outpatient (BNVA) | payer MEDICARE, MEDICAID, SELFPAY | PROVIDERS: PCP Internal Medicine; Visit Provider Nurse Practitioner Family | DX: N32.89 Other specified disorders of bladder (principal); N40.0 Benign prostatic hyperplasia without lower urinary tract symptoms; Z13.9 Encounter for screening, unspecified | CPT/HCPCS: 81003; 99212 ==

== ENCOUNTER 2025-07-31 14:22 | Outpatient (REF) | payer MEDICARE, MEDICAID, SELFPAY ==
--- OUTSIDE RECORDS SUMMARY | 2025-07-31 13:45 | XMS_ITS | Encounter Summary ---
Author Organization [employer] Address [address] [place] [address] 7[address] [place] [address] Care Team Providers Care Shrub Planter Name Role Phone Hilda Hill MD Primary Care Provide r Reason for Referral * Consultation (Routine) - Authorized Specialty Diagnoses / Procedures Referred By Contac t Referred To Contact Hematology and Oncology Diagnoses Anemia, unspecified type Chronic fatigue Hilda Hill MD [address] [place] [address] Phone: tel: fax: Hematology & Oncology, [address] Phone: tel: fax: Referral ID Status Reason Start Date Expiration Date Visits Requested Visits Authorized [id number] Authorized Specialty Services Required 07/31/2025 07/31/2026 1 1 Encounter Details Date Type Department Care Team (Late st Contact Info) Description 07/31/2025 1:45 PM EDT Office Visit [facility] MEDICINE [address] [place] [address] [phone] Hilda Hill MD [address] [place] [address] [phone] Anemia, unspecified type (Primary Dx); Chronic fatigue; Encounter for immunization Social History Tobacco Use Types Packs/Day Years [...] Sign Reading Time Taken Comments Blood Pressure 118/72 07/31/2025 1:48 PM EDT Pulse 60 07/31/2025 1:48 PM EDT Temperature 35.7 C (96.3 F) 07/31/2025 1:48 PM EDT Respiratory Rate 16 07/31/2025 1:48 PM EDT Oxygen Saturation 99% 07/31/2025 1:48 PM EDT Inhaled Oxygen Concentration - - Weight 61.6 kg (135 lb 12.8 oz) 07/31/2025 1:48 PM EDT Height 170.2 cm (5' 7 ) 07/31/2025 1:48 PM EDT Body Mass Index 21.27 07/31/2025 1:48 PM EDT documented in this encounter Progress Notes * Inga Madrid MA - 07/31/2025 1:45 PM EDT 118/72 * Hilda Talamantes MD - 07/31/2025 1:45 PM EDT SUBJECTIVE: Michael Ayala is a 70 y.o. year old male who presents for Chronic Disease Management . Acute Concerns: Patient reports he feels more fatigued than usual he finds himself taking naps during the day whichthis is not his usual routine, he denies shortness of breath or palpitations, he tells me also thathe noticed he bleeds easily he had superficial scratch on his legs and reports they started bleeding again without any apparent cause he also noticed easy bruising and it takes time for him to recover from the bruises, he denies any night sweats or weight loss Social History Social History Narrative Not on file Problem List[1] Generalized gingival recession Dental plaque Scalp lesion Urinary frequency Encounter for preventive care Basal cell carcinoma (BCC) of scalp Elevated blood pressure reading Abnormal PSA Dyslipidemia Colon cancer screening Acquired hypothyroidism Backache Chronic hepatitis C (CMS/HCC) (HCC) Chronic low back pain Knee pain Left testicular pain Mixed anxiety and depressive disorder Need for assistance with personal care Opioid abuse (HCC) Seasonal allergic rhinitis Seborrheic dermatitis Ulcer of skin of face Acute pain of left knee Chronic pain of both knees Right foot pain Vasovagal syncope Primary insomnia Anxiety with depression Anxiety Anemia Skin cancer screening Constipation Chronic fatigue Family History[2] Review of Systems Constitutional: Positive for fatigue. Negative for activity change, appetite change, chills, diaphoresis, fever and unexpected weight change. HENT: Negative. Respiratory: Negative. Cardiovascular: Negative. Hematological: Bruises/bleeds easily. OBJECTIVE: Vitals: 07/31/25 1348 BP: 118/72 BP Location: Left arm Patient Position: Sitting BP Cuff Size: Adult Pulse: 60 Resp: 16 Temp: 96.3 ??F (35.7 ??C) TempSrc: Temporal SpO2: 99% Weight: 135 lb 12.8 oz (61.6 kg) Height: 5' 7 (1.702 m) Physical Exam Constitutional: Appearance: Normal appearance. Cardiovascular: Rate and Rhythm: Normal rate and regular rhythm. Pulmonary: Effort: Pulmonary effort is normal. Breath sounds: Normal breath sounds. Abdominal: General: Abdomen is flat. Palpations: Abdomen is soft. Musculoskeletal: Right lower leg: No edema. Left lower leg: No edema. Neurological: Mental Status: He is alert. Follow Up: No follow-ups on file. Medications Ordered Prior to Encounter[3] Problem List Items Addressed This Visit Anemia - Primary I will order additional blood work for him and contact him with results I decided to put in a referral to a prenatal genetic counselor in light that his anemia has been persistent for the past year, he is also being scheduled for a colonoscopy Relevant Orders CBC auto differential (Completed) Pathologist Review Of Peripheral Smear Comprehensive Metabolic Panel TSH with Reflex to Free T4 HIV-1/2 Antigen and Antibodies, Fourth Generation, with Reflexes MADHURI Screen,IFA, with Reflex to Titer and Pattern Referral to Hematology / Oncology Chronic fatigue Additional blood work ordered today patient will be contacted with results Relevant Orders CBC auto differential (Completed) Pathologist Review Of Peripheral Smear Comprehensive Metabolic Panel TSH with Reflex to Free T4 HIV-1/2 Antigen and Antibodies, Fourth Generation, with Reflexes MADHURI Screen,IFA, with Reflex to Titer and Pattern Referral to Hematology / Oncology Other Visit Diagnoses Encounter for immunization Relevant Orders FLU VACCINE TRIVALENT HIGH DOSE [phone] (Fluzone) 65 yrs + (Completed) [1] Patient Active Problem List Diagnosis Generalized gingival recession Dental plaque Scalp lesion Urinary frequency Encounter for preventive care Basal cell carcinoma (BCC) of scalp Elevated blood pressure reading Abnormal PSA Dyslipidemia Colon cancer screening Acquired hypothyroidism Backache Chronic hepatitis C (CMS/HCC) (HCC) Chronic low back pain Knee pain Left testicular pain Mixed anxiety and depressive disorder Need for assistance with personal care Opioid abuse (HCC) Seasonal allergic rhinitis Seborrheic dermatitis Ulcer of skin of face Acute pain of left knee Chronic pain of both knees Right foot pain Vasovagal syncope Primary insomnia Anxiety with depression Anxiety Anemia Skin cancer screening Constipation Chronic fatigue [2] No family history on file. [3] Current Outpatient Medications on File Prior to Visit Medication Sig Dispense Refill Ascorbic Acid (vitamin C) 1000 MG tablet Take 1 tablet by mouth 1 (one) time each day. cholecalciferol (Vitamin D-3) 25 MCG (1000 UT) tablet Take 1 tablet by mouth 1 (one) time each day. hydrocortisone 2.5 % cream Apply topically 2 times daily. 20 g 0 ketoconazole (NIZOral) 2 % shampoo Apply topically 2 (two) times a week. 120 mL 0 levothyroxine (Synthroid, Levoxyl) 100 MCG tablet TAKE [...] facility-administered medications on file prior to visit. documented in this encounter Miscellaneous Notes * Assessment & Plan Note - Hilda Talamantes MD - 07/31/2025 4:21 PM EDT Associated Problem(s): Chronic fatigue Additional blood work ordered today patient will be contacted with results * Assessment & Plan Note - Hilda Talamantes MD - 07/31/2025 4:21 PM EDT Associated Problem(s): Anemia I will order additional blood work for him and contact him with results I decided to put in a referral to a prenatal genetic counselor in light that his anemia has been persistent for the past year, he is also being scheduled for a colonoscopy documented in this encounter Plan of Treatment Upcoming Encounters Date Type Department Care Team ([facility] st Contact Info) Description 08/04/2025 4:00 PM EDT Office Visit [facility] MEDICINE [address] [place] [address] Rafita Montaño MD [address] [place] [address] 08/31/2025 1:45 PM EST Telemedicine [facility] MEDICINE [address] [place] [address] Hilda Hill MD [address] [place] [address] 09/15/2025 3:00 PM EST Office Visit [facility] ADULT DENTAL [address] [place] [address] Andre Farrisaris [address] [place] [address] Pending Results Name Type Priority Associated Diagnoses Date /Time CBC auto differential Lab Routine Anemia, unspecified type Chronic fatigue 07/31/2025 2:31 PM EDT Comprehensive Metabolic Panel Lab Routine Anemia, unspecified type Chronic fatigue 07/31/2025 2:31 PM EDT Scheduled Orders Name Type Priority Associated Diagnoses Orde r Schedule Pathologist Review Of Peripheral Smear Lab Routine Anemia, unspecified type Chronic fatigue Expected: 07/31/2025 (Approximate), Expires: 07/31/2026 TSH with Reflex to Free T4 Lab Routine Anemia, unspecified type Chronic fatigue Expected: 07/31/2025 (Approximate), Expires: 07/31/2026 HIV-1/2 Antigen and Antibodies, Fourth Generation, with Reflexes Lab Routine Anemia, unspecified type Chronic fatigue Expected: 07/31/2025 (Approximate), Expires: 07/31/2026 MADHURI Screen,IFA, with Reflex to Titer and Pattern Lab Routine Anemia, unspecified type Chronic fatigue Expected: 07/31/2025 (Approximate), Expires: 07/31/2026 Scheduled Referrals Name Type Priority Associated Diagnoses Orde r Schedule Referral to Hematology / Oncology Outpatient Referral Routine Anemia, unspecified type Chronic fatigue Expected: 07/31/2025 (Approximate), Expires: 07/31/2026 documented as of this encounter Procedures Procedure Name Priority Date/Time Associated Diagnosis Comments CBC WITH AUTO DIFFERENTIAL Routine 07/31/2025 2:31 PM EDT Anemia, unspecified type Chronic fatigue COMPREHENSIVE METABOLIC PANEL Routine 07/31/2025 2:31 PM EDT Anemia, unspecified type Chronic fatigue documented in this encounter Visit Diagnoses Diagnosis Anemia, unspecified type- Primary Chronic fatigue Other malaise and fatigue Encounter for immunization documented in this encounter Additional Health Concerns Assessment Noted Time PHQ-9 Depression Total Score: 0 02/01/20 24 10:03 AM EDT documented as of this encounter Care Teams Shrub Planter Relationship Specialty Start Date End Date Hilda Hill MD [address] [place] [phone] PCP - General Family Medicine 09/03/18 documented as of this encounter
[2025-07-31 16:03] LABS: MANUAL DIFF FLAG NO
[2025-07-31 16:15] LABS: Hematocrit 36.6 % (42.0-52.0); Hemoglobin 12.9 g/dl (14.0-18.0); Imm Gran Abs Auto 0.04 X10*3/uL (0.00-0.03); Imm Gran Pct Auto 0.9 % (0.0-0.4); Lymphocytes Absolute Auto 1.2 X10*3/uL (1.2-4.9); Mean Corpuscular HGB Conc 35.2 g/dl (31.0-36.0); Mean Corpuscular Hemoglobin 30.6 pg (27.0-33.0); Mean Corpuscular Volume 86.7 fL (80.0-98.0); NRBC Abs Auto 0.000 X10*3/uL (0.0-0.012); NRBC Pct Auto 0.0 /100WBC (0.0-0.2); Platelet Count 228 X10*3/uL (160-400); Red Blood Count 4.22 X10*6/uL (4.60-5.80); White Blood Count 4.6 X10*3/uL (4.8-10.8)
[2025-07-31 16:32] LABS: Alanine Aminotransferase 32 U/L (0-40); Albumin Level 4.6 g/dL (3.5-5.0); Alkaline Phosphatase 47 U/L (39-117); Anion Gap 10 (12-20); Aspartate Amino Transferase 36 U/L (5-37); Blood Urea Nitrogen 16 mg/dL (9-16); Calcium 9.5 mg/dL (8.4-10.2); Carbon Dioxide 29 mmol/L (22-29); Chloride 103 mmol/L (96-108); Estimated Glomerular Filt Rate > 60; Potassium 4.3 mmol/L (3.3-5.1); Sodium 138 mmol/L (135-145); Total Protein 6.9 g/dL (6.5-8.0)
--- OUTSIDE RECORDS SUMMARY | 2025-07-31 16:50 | XMS_ITS | Encounter Summary ---
Author Organization [employer] Address [address] [place] [address] Care Team Providers Care Bench Mechanic Name Role Phone Hilda Hill MD Primary Care Provide r Encounter Details Date Type Department Care Team (Latest Contact Info) Description 07/31/2025 Travel Social History Tobacco Use Types Packs/Day [...] Care Team (Late st Contact Info) Description 08/04/2025 4:00 PM EDT Office Visit [facility] MEDICINE [address] [place] [address] Rafita Montaño MD [address] [place] [address] 08/31/2025 1:45 PM EST Telemedicine [facility] MEDICINE [address] [place] [address] Hilda Hill MD [address] [place] [address] 09/15/2025 3:00 PM EST Office Visit [facility] ADULT DENTAL [address] [place] [address] Kaleigh, Phoebe [address] [place] [address] documented as of this encounter Visit Diagnoses Not on filedocumented in this encounter Additional Health Concerns Assessment Noted Time PHQ-9 Depression Total Score: 0 02/01/20 24 10:03 AM EDT documented as of this encounter Care Teams Bench Mechanic Relationship Specialty Start Date End Date Hilda Hill MD [address] [place] [address] PCP - General Family Medicine 09/03/18 documented as of this encounter
--- OUTSIDE RECORDS SUMMARY | 2025-07-31 16:50 | XMS_ITS | Clinical Summary ---
Author Organization [facility] Address [address] [address] Phone Care Team Providers Care Panel Saw Operator Name Role Phone Unavailable Primary Care Provider [...] file Medical Devices Not on file Insurance [facility] MEDICARE PART A & B [place] [facility] [place] PART [place]IC[place] [facility] A & [facility] & B [facility] MEDICARE PART A & B Member Subscriber Plan / Payer (Ef fective 2018-Present) Name:Michael Ayala Member ID:[id number] Relation to Subscriber:Self Name:Michael Ayala Subscriber ID:[id number] Payer ID:[id number] Group ID:Not on file Type:Medicare Address: [facility] [employer] [facility] [address] [facility] [place] [address] Additional Source Comments The information contained in this document represents components of the legal health record. It is not the complete legal health record.[facility]
--- OUTSIDE RECORDS SUMMARY | 2025-07-31 16:50 | XMS_ITS | Encounter Summary ---
Author Organization [employer] Address [address] [place] [address] Care Team Providers Care Reading Coach Name Role Phone Hilda Hill MD Primary Care Provide r Encounter Details Date Type Department Care Team (Late st Contact Info) Description 04/22/2024 Orders Only [facility] MEDICINE [address] [place] [address] ProviderTeresa MD Social History Tobacco Use Types [...] the past 12 months, has t he [employer], gas, oil or water company threatened to [...] Description 08/04/2025 4:00 PM EDT Office Visit [facility] MEDICINE [address] [place] [address] Rafita Montaño MD [address] [place] [address] 08/31/2025 1:45 PM EST Telemedicine [facility] MEDICINE [address] [place] [address] Hilda Hill MD [address] [place] [address] 09/15/2025 3:00 PM EST Office Visit [facility] ADULT DENTAL [address] [place] [address] Kaleigh Phoebe [address] [place] [address] documented as of this encounter Procedures Procedure [...] documented as of this encounter Care Teams Reading Coach Relationship Specialty Start Date End Date Hilda Hill MD [address] [place] [address] PCP - General Family Medicine 09/03/18 documented as of this encounter
--- OUTSIDE RECORDS SUMMARY | 2025-07-31 16:50 | XMS_ITS | Clinical Summary ---
Author Organization [employer] Address [address] [facility] 7t [place] [address] Care Team Providers Care Restaurant Busser Name Role Phone Hilda Hill MD Primary [...] Active Problems Problem Noted Date Diagnosed Date Chronic fatigue 07/31/2025 Assessment & Plan (07/31/2025 4:21 PM EDT): Additional blood work ordered today patient will be contacted with results Constipation 12/07/2024 Anemia 09/09/2024 Assessment & Plan (07/31/2025 4:21 PM EDT): I will order additional blood work for him and contact him with results I decided to put in a referral to a shooter's helper in light that his anemia has been persistent for the past year, he is also being scheduled for a colonoscopy Assessment & Plan (01/26/2025 12:08 PM EDT): [...] Plan (05/04/2024 2:47 PM EDT): Counseling done N referral declines medications Seborrheic dermatitis 11/12/2023 11/12/2023 [...] 11/12/2023 Backache 02/12/2018 11/12/2023 Chronic hepatitis C (CMS/HCC) 02/12/2018 Opioid abuse 02/12/2018 11/12/2023 Seasonal allergic rhinitis 02/12/201811/12 Resolved Problems Problem Noted Date Diagnosed Date Resolved Date Scalp decubitus ulcer 08/28/20232022 Encounters Date Type Department Care Team Description 07/31/2025 1:45 PM EDT Office Visit [facility] MEDICINE [address] [place] [phone] Hilda Hill MD Anemia, unspecified type (Primary Dx); Chronic fatigue; Encounter for immunization 07/31/2025 Travel 07/21/2025 Patient Outreach [facility] MEDICINE [address] [place] [address] Hilda Hill MD Pre-visit Planning ((Unable to reach for PVP screening, LVM) to be completed in office ) 07/01/2025 Orders Only GENERIC EXTERNAL DATA DEPARTMENT Provider, Generic External Data 06/22/2025 Telephone [facility] [address] [place] [phone] Stefano Francois MD 06/21/2025 11:20 AM EDT Office Visit [facility] WALK-IN [address] [address] Stefano Francois MD Skin lesion of face (Primary Dx); Elevated blood pressure reading in office without diagnosis of hypertension 06/21/2025 Travel 06/20/2025 Telephone [facility] MEDICINE [address] [place] [address] Hilda Hill MD telephone call 05/09/[address] [address] Hilda Hill MD OCT RECALL from Last 3 Months Immunizations Immunization Administration Dates Next Due Hep A, ped/adol, 2 dose 08/24/2003,02/08/2003 Influenza High-dose Quadriva lent Preservative Free 08/28/2023,09/02/2022 Influenza injectable quadriv alent IIV4 with preservative 09/25/2017,07/25/2016,08/27/2015 Influenza injectable quadriv alent preservative free 10/04/2021,10/05/2018,12/01/2014 Influenza, High Dose Seasona l, Preservative Free 07/31/2025,09/09/2024,08/19/2019 Influenza, Split (incl. navneet fied surface antigen) [...] Mass Index 21.27 07/31/2025 1:48 PM EDT Plan of Treatment Upcoming Encounters Date Type Department Care Team (Late st Contact Info) Description 08/04/2025 4:00 PM EDT Office Visit [facility] MEDICINE [address] [place] [address] Rafita Montaño MD [address] [place] [address] 08/31/2025 1:45 PM EST Telemedicine [facility] MEDICINE [address] [place] [address] Hilda Hill MD [address] [place] [address] 09/15/2025 3:00 PM EST Office Visit [facility] ADULT DENTAL [address] [place] [address] Kaleigh, Phoebe [address] [place] [address] Health Maintenance Due Date Last Done Comments [...] 2025 09/09/2024, 09/07/2023, 09/02/2022, Additional history exists Dental X-Ray: Bitewings 07/09/2025 07/08/20 24, 05/27/2024, 09/16/2023, Additional history exists Dental Prophylaxis 08/02/2025 01/30/2025, 1 , 09/16/2023, Additional history exists SDOH Screening 09/01/2025 09/01/2024 Alcohol/Substance Use Screening 09/09/2025 09/09/2024 Tobacco Screening 07/31/2026 07/31/2025 Dental X-Ray: Full Mouth 09/17/2026 09/16/2023, 05/26 DTaP/Tdap/Td Vaccines (3 - Td or Tdap) 03/16/2029 03/16/2019, 06/26/2015 Lipid Panel 10/03/2029 10/03/2024, 11/27, 09/04/2023, Additional history exists Colonoscopy 01/05/2034 01/06/2024, 03/31/2023 Colorectal Cancer Screening 01/05/2034 Pneumococcal Vaccine: 50+ Years Completed 08/28/2023 Zoster Vaccines Completed 11/10/2023, 08/26, 11/28/2016 Influenza Vaccine Completed 07/31/2025, , 08/28/2023, Additional history exists Anal Pap Discontinued HIB [...] Procedure Name Priority Date/Time Associated Diagnosis Comments COMPREHENSIVE METABOLIC PANEL Routine 07/31/2025 2:31 PM EDT Anemia, unspecified type Chronic fatigue CBC WITH AUTO DIFFERENTIAL Routine 07/31/2025 2:31 PM EDT Anemia, unspecified type Chronic fatigue PSA, TOTAL Routine 07/01/2025 1:17 PM EDT PROPHYLAXIS - ADULT Routine 01/30/2025 1 [...] Specific Antigen 1.21 <0.05 - 4.0 ng/mL [facility] Comment:PSA methodology: Luis Nuñez i ChemiluminescentMicroparticle Immunoassay (CMIA) 07/01/2025 1:17 PM EDT 07/01/2025 3:26 PM EDT us Generic External Data Provider LAB BLOOD ORDERAB LES Final Result [facility] [address] [place] [phone] * Lipid Panel, Standard (10/03/2024 1:22 PM EST) Triglycerides 138 <150 mg/dL [facility] Comment:Desirable Triglyceri de: less than 150 mg/dLBorderline High Triglyceride 150-199 mg/dLHigh Triglyceride: 200-499 mg/dLVery High Triglyceride: greater than or equal to 5OO mg/dL Cholesterol 147 <200 mg/dL [facility] Comment:Desirable Cholestero l: less than 200 mg/dLBorderline High Cholesterol: 200-239 mg/dLHigh Cholesterol: greater than 239 mg/dL LDL Cholesterol Calculated 71 <100 mg/dL [facility] Comment:Desirable LDL: less than 100 mg/dLNear Optimal/Above Optimal LDL: 110- 129 mg/dLBorderline High LDL: 130-159 mg/dLHigh LDL: 160-189 mg/dLVery High LDL: greater than or equal to 190 mg/dL HDL Cholesterol 49 >40 mg/dL [facility] Comment:Desirable HDL: great er than 40 mg/dL Note: This HDL assay may give artificially low results in patients with liver disease. Blood Venous blood specimen / Unknown 10/03/2024 1:22 PM EST 10/03/2024 4:52 PM EST Hilda Talamantes MD LAB BLOOD ORDERABLES Final Result [facility] [address] [place] [phone] * Colonoscopy (01/06/2024) Colonoscopy Normal Normal Narrative Brianna Hawk - 01/06/2024 Recommended 10 years. See see external hospital admission note on 01/06/2024 Historical Provider HEALTH MAINTENANCE Final Result from Last 3 Months or Most Recently Relevant to Health Maintenance Insurance [facility] STANDARD MEDIC[place] [phone] DENTAL-[facility] MEDICAID STAND ADULT Care Teams Restaurant Busser Relationship Specialty Start Date End Date Hilda Hill MD [address] [place] [address] PCP - General Family Medicine 09/03/18
--- OUTSIDE RECORDS SUMMARY | 2025-07-31 16:50 | XMS_ITS | Patient Health Record ---
Author Organization [facility] Address [address] [place] [address] Care Team Providers Care Grinder Watch Parts Name Role Phone Hilda Rivers M.D. Primary [...] Problem Status W/U Status Risk Notes Problem [id number] Colon cancer screening (Z12.11) Active confirmed Problem [id number] Intermittent constipation (K59.09) Active confirmed Plan Of Treatment Future Test Test Name Order Date COLONOSCOPY 12/10/2023 Insurance Providers Payer Name Payer Address Payer Phone Subscriber Number Group Number Insured Name Patient Relationship to Insured Coverage Start Date Coverage End Date MEDICARE OF [employer] [address] [id number] [phone] [id number] GOLDIE BAKER Self - patient is the insured MEDICAID OF [facility] [address] [place] [phone] [id number] GOLDIE BAKER Self - patient is the insured Medical (General) History Medical History History ICD Code BARNARD with post-ablative hypothyroidism BPH with 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
--- OUTSIDE RECORDS SUMMARY | 2025-07-31 16:50 | XMS_ITS | Encounter Summary ---
Author Organization [employer] Address [address] [facility] 7t [place] [address] Care Team Providers Care Cardiothoracic Surgeon Name Role Phone Hilda Hill MD Primary Care Provide r Encounter Details Date Type Department Care Team (Latest Contact Info) Description 06/16/2022 Abstract [facility] CONVERSIONS Dental, Provider, DDS Social History Tobacco [...] Description 08/04/2025 4:00 PM EDT Office Visit [facility] MEDICINE [address] [place] [phone] Rafita Montaño MD [address] [place] [address] 08/31/2025 1:45 PM EST Telemedicine [facility] MEDICINE [address] [place] [address] Hilda Hill MD [address] [place] [address] 09/15/2025 3:00 PM EST Office Visit [facility] ADULT DENTAL [address] [place] [address] Phoebe Farris [address] [place] [address] documented as of this encounter Visit Diagnoses Not on filedocumented in this encounter Care Teams Cardiothoracic Surgeon Relationship Specialty Start Date End Date Hilda Hill MD [address] [place] [address] PCP - General Family Medicine 09/03/18 documented as of this encounter
--- OUTSIDE RECORDS SUMMARY | 2025-07-31 16:50 | XMS_ITS | Encounter Summary ---
Author Organization [email or web address] Address [address] 7t [place] [address] Care Team Providers Care Tumbling Instructor Name Role Phone Hilda Hill MD Primary Care Provide r Encounter Details Date Type Department Care Team (Latest Contact Info) Description 06/10/2019 Abstract [facility] CONVERSIONS Dental, Provider, DDS Social [...] Description 08/04/2025 4:00 PM EDT Office Visit [facility] MEDICINE [address] [place] [phone] Rafita Montaño MD [address] [place] [address] 144[address] 08/31/2025 1:45 PM EST Telemedicine [facility] MEDICINE [address] [place] [address] 59706 Hilda Hill MD [address] [place] [address] 113[address] 09/15/2025 3:00 PM EST Office Visit [facility] ADULT DENTAL [address] [place] [address] [phone] Phoebe Farris [address] [place] [address] documented as of this encounter Visit Diagnoses Not on filedocumented in this encounter Care Teams Tumbling Instructor Relationship Specialty Start Date End Date Hilda Hill MD [address] [place] [address] PCP - General Family Medicine 09/03/18 documented as of this encounter
--- OUTSIDE RECORDS SUMMARY | 2025-07-31 16:50 | XMS_ITS | Encounter Summary ---
Author Organization [employer] Address [address] [facility] 7t [place] [address] Care Team Providers Care Informatics Application Analyst Name Role Phone Hilda Hill MD Primary Care Provide r Encounter Details Date Type Department Care Team (Latest Contact Info) Description 04/19/2021 Abstract [facility] CONVERSIONS Dental, Provider, DDS Social [...] Description 08/04/2025 4:00 PM EDT Office Visit [facility] MEDICINE [address] [place] [phone] Rafita Montaño MD [address] [place] [phone] 08/31/2025 1:45 PM EST Telemedicine [facility] MEDICINE [address] [place] [address] [phone] Hilda Hill MD [address] [place] [phone] 09/15/2025 3:00 PM EST Office Visit [facility] ADULT DENTAL [address] [place] [address] [phone] Phoebe Farris [address] [place] [address] documented as of this encounter Visit Diagnoses Not on filedocumented in this encounter Care Teams Informatics Application Analyst Relationship Specialty Start Date End Date Hilda Hill MD [address] [place] [address] PCP - General Family Medicine 09/03/18 documented as of this encounter
--- OUTSIDE RECORDS SUMMARY | 2025-07-31 16:50 | XMS_ITS | Encounter Summary ---
Author Organization [employer] Address [address] [facility] 7t [place] [address] Care Team Providers Care Transition Program Manager Name Role Phone Hilda Hill MD Primary Care Provide r Encounter Details Date Type Department Care Team (Late Contact Info) Description 02/12/2023 Orders Only [facility] MEDICINE [address] [place] [address] Nadja Beatty LPN Social History Tobacco Use [...] Upcoming Encounters Date Type Department Care Team ([facility] Contact Info) Description 08/04/2025 4:00 PM EDT Office Visit [facility] MEDICINE [address] [place] [address] Rafita Montaño MD [address] [place] [address] 08/31/2025 1:45 PM EST Telemedicine [facility] MEDICINE [address] [place] [address] Hilda Hill MD [address] [place] [address] 09/15/2025 3:00 PM EST Office Visit [facility] ADULT DENTAL [address] [place] [address] Phoebe Farris [address] [place] [address] documented as of this encounter Procedures Procedure Name Priority Date/Time Associated Diagnosis Comments HIGH SENSITIVITY TROPONIN I Routine 10/25/2023 12:07 PM EST CBC WITH AUTO DIFFERENTIAL Routine 10/25/2023 12:07 PM EST BASIC METABOLIC PANEL Routine 10/25/2023 12:07 PM EST documented in this encounter Results * High Sensitivity Troponin I (10/25/2023 12:07 PM EST) Pathologist [facility] TROPONIN I HIGH SENSITIVITY 2.7 <3.5 - 35.0 ng/L [facility] Comment:The [place] high sens itivity Troponin-I results should beused in conjunction with other diagnostic information suchas ECG, clinical observations and information, and patientsymptoms to aid in the diagnosis of CO. 10/25/2023 12:0 7 PM EST 10/25/2023 12:12 PM EST us Generic External Data Provider LAB BLOOD ORDERAB LES Final Result [facility] [address] [place] [address] [phone] * (ABNORMAL) Basic Metabolic Panel (10/25/2023 12:07 PM EST) Pathologist [facility] Sodium 138 135 - 145 mmol/L [facility] Potassium 4.3 3.3 - 5.1 mmol/L [facility] Chloride 104 96 - 108 mmol/L [facility] Carbon Dioxide 26 22 - 29 mmol/L [facility] Anion Gap 12 12 - 20 [facility] Urea Nitrogen (BUN) 18(H) 9 - 16 mg/dL [facility] Creatinine, Serum 0.94 0.5 - 1.4 mg/dL [facility] Creatinine Clr Calc Pharmacy 67.0 [facility] Comment:eGFR (calculated fro m the MDRD study equation) and eCrCl(calculated from the Cockcroft-Gault equation) are based ondifferent parameters and may not yield comparable results.If eCrCl result is absurd, please check patient'sheight/weight. Estimated Glomerular Filt Rate >60 [facility] Comment:NOTE: For -Am erican individuals, multiply the result by 1.210.Chronic Kidney Disease: Estimated GFR < 60 mL/min/1.50p4Yrrsko Kidney Disease: Estimated GFR < 15 mL/min/1.73m2 Glucose 134(H) 60 - 115 mg/dL [facility] Calcium 9.7 8.4 - 10.2 mg/dL [facility] 10/25/2023 12:0 7 PM EST 10/25/2023 12:12 PM EST us Generic External Data Provider LAB BLOOD ORDERAB LES Final Result [facility] [address] [place] [address] [phone] * (ABNORMAL) CBC auto differential (10/25/2023 12:07 PM EST) White Blood Count 11.2(H) 4.8 - 10.8 X10*3/uL [facility] Red Blood Count 4.70 4.60 - 5.80 X10*6/uL [facility] Hemoglobin 13.7(L) 14.0 - 18.0 g/dl [facility] Hematocrit 40.0(L) 42.0 - 52.0 % [facility] Mean Corpuscular Volume 85.1 80.0 - 98.0 fL [facility] Mean Corpuscular Hemoglobin 29.1 27.0 - 33.0 pg [facility] Mean Corpuscular HGB Conc 34.3 31.0 - 36.0 g/dl [facility] Red Cell Distribution Width 13.6 11.0 - 16.0 % [facility] Platelet Count 234 160 - 400 X10*3/uL [facility] Mean Platelet Volume 9.0(L) 9.4 - 12.4 fL [facility] Neutrophils Percent Auto 79.8(H) 45 - 73 % [facility] Imm Gran Pct Auto 0.5(H) 0.0 - 0.4 % [facility] Lymphocytes Percent Auto 12.4(L) 20 - 40 % [facility] Monocytes Percent Auto 7.2 2 - 11 % [facility] Eosinophils Percent Auto 0.0 0 - 4 % [facility] Basophils Percent Auto 0.1 0 - 2 % [facility] NRBC Pct Auto 0.0 0.0 - 0.2 /100WBC [facility] Neutrophils Absolute Auto 8.9(H) 2.0 - 8.3 x10*3/uL [facility] Imm Gran Abs Auto 0.06(H) 0.00 - 0.03 X10*3/uL [facility] Lymphocytes Absolute Auto 1.4 1.2 - 4.9 X10*3/uL [facility] Monocytes Absolute Auto 0.8 0.1 - 1.2 X10*3/uL [facility] Eosinophils Absolute Auto 0.0 0.0 - 0.4 X10*3/uL [facility] Basophils Absolute Auto 0.0 0.0 - 0.2 X10*3/uL [facility] NRBC Abs Auto 0.000 0.0 - 0.012 X10*3/uL [facility] 10/25/2023 12:0 7 PM EST 10/25/2023 12:12 PM EST us Generic External Data Provider LAB BLOOD ORDERAB LES Final Result [facility] [address] [place] [address] [phone] documented in this encounter Visit Diagnoses Not on filedocumented in this encounter Care Teams Transition Program Manager Relationship Specialty Start Date End Date Hilda Hill MD [address] [place] [address] PCP - General Family Medicine 09/03/18 documented as of this encounter
--- OUTSIDE RECORDS SUMMARY | 2025-07-31 16:50 | XMS_ITS | Encounter Summary ---
Author Organization [email or web address] Address [address] [facility] 7t [place] [address] Care Team Providers Care Image Scientist Name Role Phone Hilda Hill MD Primary Care Provide r Reason for Visit * Reason Onset Date Comments Call Back Request 11/18/2023 Encounter Details Date Type Department Care Team ([facility] Contact Info) Description 11/18/2023 Telephone [facility] MEDICINE [address] [place] [address] Hidla Hill MD [address] [place] [address] Call Back Request Social History Tobacco Use [...] 2:53 PM EST TC placed to pt [phone] in regards to ortho referral. Pt [place] [facility] [facility] [place] pt and advised him he had to be seen at [facility] because that is where he was seen [...] pt has requested. Please contact pt at [phone] documented in this encounter Plan of Treatment Upcoming Encounters Date Type Department Care Team (Late st Contact Info) Description 08/04/2025 4:00 PM EDT Office Visit [facility] MEDICINE [address] [place], [place] [phone] Rafita Montaño MD [address] [place] [address] 08/31/2025 1:45 PM EST Telemedicine [facility] MEDICINE [address] [place] [address] Hilda Hill MD [address] [place] [address] 09/15/2025 3:00 PM EST Office Visit [facility] ADULT DENTAL [address] [place], [place] [phone] Phoebe Farris [address] [place] [address] documented as of this encounter Visit Diagnoses Not on filedocumented in this encounter Care Teams Image Scientist Relationship Specialty Start Date End Date Hilda Hill MD [address] [place] [address] [phone] PCP - General Family Medicine 09/03/18 documented as of this encounter
[2025-07-31 17:39] LABS: Free T4 (Free Thyroxine) 1.00 ng/dL (0.71-1.85)
[2025-08-01 07:49] LABS: HIV Num 1 0.13 S/CO (0.00-0.99)
[2025-08-02 11:27] LABS: Anti Nuclear Antibody Screen NEGATIVE (NEGATIVE)
== END 2025-07-31 14:23 | disposition home or self-care (01) ==
LOC: HO.HHCL 14:22
PROVIDERS: PCP Internal Medicine; Visit Provider Internal Medicine
DX: R53.82 Chronic fatigue, unspecified (principal); D64.9 Anemia, unspecified; Z11.4 Encounter for screening for human immunodeficiency virus [HIV]
CPT/HCPCS: 80053; 84439; 84443; 85025; 86038; 87389

== ENCOUNTER 2025-08-18 14:55 | Outpatient (AMB) | payer MEDICARE, MEDICAID, SELFPAY ==
[2025-08-18 14:58] VITALS: BP 139/73; BMI 21.5
--- NOTE | 2025-08-18 14:58 | A.OFFVIS_ITS ---
Vital Signs 08/18/25 14:58 Height 5 ft 7 in Weight 137 lb BMI 21.5 BP 139/73 Blood Pressure Location Lt brachial Position Sitting Intake Visit Reasons: Iron deficiency anemia Intake Note: New patient in office for iron deficiency anemia. CC: Patient reports that he was having constipation but is now taking Metamucil and eating a lot of beans and the situation resolved. Patient also reports sometimes feeling RLQ abd cramps. Infant Nanny Required: No Accompanied by: Self / Same As Patient Allergies No Known Allergies Allergy (Verified 08/18/25 15:02) Medication List - Last Reconciled 08/18/25 by Lupe David CNP ascorbic acid (vitamin C) (Vitamin C) 500 mg PO DAILY blood pressure test kit-large As directed cholecalciferol (vitamin D3) 25 mcg PO DAILY lactobacillus combination no.4 (Probiotic) 3,000 mmu cells PO DAILY levothyroxine 100 mcg PO DAILY@0600 multivitamin 1 tab PO DAILY omega-3 fatty acids 500 mg PO DAILY vitamin B complex 1 tab PO DAILY HPI HPI Iron deficiency anemia: Details: Patient is a 70-year-old male with PMH of anxiety, depression, postablative hypothyroidism, BPH, BSS s/p excision, opioid use disorder in remission. Referred by PCP for further evaluation of an anemia. Patient presents for assessment of mild normocytic anemia, noted since early 2022, with isolated minimally low iron in early 2024 that subsequently normalized after dietary changes. Has a history of largely meat-free diet starting around 2022, now reintroducing some chicken, fish, and rare red meat. No iron supplementation reported; uses B complex, multivitamin, and vitamin D. Colonoscopy performed December 2023 was normal, with recommendation to repeat in 10 years. Reports history of opioid-induced constipation, now well controlled with increased dietary fiber (Metamucil, beans); denies overt gastrointestinal bleeding, aside from a single episode before 2023 colonoscopy of what may have been blood mixed in stool, but not seen since. Describes rare, mild right upper quadrant abdominal cramp occurring only intermittently for the last few weeks, not painful, without associated trauma or GI triggers. Denies epigastric pain. Reports mild, longstanding difficulty swallowing solids (not liquids) over past couple years, no regurgitation or aspiration. Appetite remains good; weight is down from 143 to 137 lbs since December 2023 but associated with increased physical activity and selective eating; does not attribute this to intentional dieting, but denies fevers, recent illness, or nausea/vomiting. No other active upper or lower GI symptoms reported. Notable comorbidities include hypothyroidism s/p radioactive iodine ablation (Levothyroxine), past skin cancer (basal cell, excised), longstanding opioid recovery (>20 yrs), and remote hepatitis C; no current cardiac/pulmonary disease. Pending evaluation by oncology/hematology for anemia. Patient denies: fever/chills, n/v, appetite changes, pyrosis, regurgitation, unintentional wt loss. Social hx: -ETOH use ~6 beers/week, typically over seven days (not daily) -Ex-opioid user, >20 years sobriety; denies current recreational drug use -non-smoker - family hx as below -denies significant cardiopulmonary history -tolerated anesthesia in the past without difficulty. [facility] Medical History (Updated 08/18/25 @ 16:52 by Lupe David CNP) Constipation Anemia Dysphagia Urinary frequency Bilateral hydrocele Encounter for screening colonoscopy Back pain Anxiety and depression Chronic viral hepatitis C History of heroin abuse Postablative hypothyroidism Surgical History Hx of hernia repair Hx of colonoscopy Hx of laparoscopy Hx of eye surgery Hx of Achilles tendon repair Hx of cervical spine surgery Hx of arthroscopy Hx of inguinal hernia surgery Family History Father No problems noted. Mother Emphysema lung Sister Cancer Social History Household Members: None Alcohol intake: never Patient Tobacco Use Status: Never used Tobacco Substance Use Type: Heroin Current occupational status: retired Review of Systems Const Reports as per HPI ENT Reports as per HPI Card Reports as per HPI Resp Reports as per HPI GI Reports as per HPI Reports as per HPI Physical Exam Vital Signs: Last Vital Signs BP 139/73 08/18/25 14:58 BMI result Body Mass Index 21.5 Const General: healthy appearing, no acute distress and well developed Nutritional Appearance: average body habitus Orientation/consciousness: patient oriented x3 HEENT Head: Yes normal to inspection, Yes normocephalic and Yes atraumatic Face and sinus: Yes normal facial exam Mouth: Normal oral and palatal mucosa present Teeth and gingiva: poor dentition Eyes General: appearance normal, both eyes and all related structures Neck Neck: Yes normal visual inspection Lymphatic: no lymphadenopathy noted Resp Effort & Inspection: normal respiratory effort, able to speak in complete sentences, no tracheal deviation and symmetric chest movement GI Inspection: Yes normal to inspection and No distended Palpation (GI): Soft to palpation, not firm, nontender and No hepatosplenomegaly present Auscultation: normal bowel sounds Neuro General: patient oriented x3 Gait exam (Neuro): Normal gait present Psych Appearance: grossly normal Mental Status: mental status grossly normal Speech and movement: Normal speech and movement present Affect: normal affect Attitude: cooperative Thought process: Normal thought process present Thought content: Normal thought content present Insight: Good insight present (Psych) Judgement: Good judgement present (Psych) Assessment & Plan Assessment & Plan (1) Anemia: Comment: 01/06/2024 complete with good prep, normal colonoscopy findings. Recommendations for repeat in 10 years. Code(s): D64.9 - Anemia, unspecified Category: Medical Qualifiers: Anemia type: unspecified type Qualified Code(s): D64.9 - Anemia, unspecified Plan: Mild chronic normocytic anemia, etiology unclear (likely multifactorial: chronic disease, prior diet, GI source not excluded). Normal colonoscopy 12/2023 and normalized iron with dietary changes; minimal GI symptoms and no major red flags besides anemia. Additional Testing: - Order urgent upper GI series with barium swallow to assess for possible upper GI source of occult bleeding and to evaluate swallowing dysfunction. - Hematology/oncology evaluation in progress for further anemia workup. -consider upper endoscopy as warranted Medication Management: Continue current medications; no iron supplementation at present. Lifestyle Recommendations: Maintain balanced diet including iron-rich foods; continue current high-fiber intake for constipation control; monitor for recurrent symptoms. Follow-Up: GI clinic follow-up in 3 months (or sooner if symptoms or test results warrant). Will expedite contact if imaging finds significant abnormalities. Coordinate findings with hematology/oncology team. (2) Dysphagia: Code(s): R13.10 - Dysphagia, unspecified Category: Medical Qualifiers: Dysphagia type: unspecified Qualified Code(s): R13.10 - Dysphagia, unspecified Plan: Intermittent, mild, progressive swallowing difficulty with solids only, no unintentional weight loss, no aspiration or regurgitation. Additional Testing: barium swallow as above (to assess structural/motility abnormalities). Medication Management: None indicated. Lifestyle Recommendations: Chew food thoroughly; continue monitoring for worsening dysphagia or weight loss. Follow-Up: As above; will reassess based on imaging and symptom evolution. (3) Constipation: Code(s): K59.00 - Constipation, unspecified Category: Medical Qualifiers: Constipation type: unspecified constipation type Qualified Code(s): K59.00 - Constipation, unspecified Plan: Longstanding opioid-induced constipation, resolved after cessation and increased fiber. Additional Testing: None Medication Management: Continue dietary management (fiber, hydration, beans, Metamucil as needed). Lifestyle Recommendations: Maintain high-fiber diet, adequate hydration, regular exercise. Follow-Up: Monitor for recurrence; no further workup unless symptoms recur. Plan Follow-up in 3 months or sooner as needed Time: I spent a total of 45 minutes on the date of encounter which includes: Preparing to see the patient (reviewed previous documentation, test results and medical history) Performing a medically appropriate exam and/or evaluation Ordering medications, tests, and procedures Documenting clinical information in the health record Orders: Orders FL upper GI w air w Ba Swallow Today D64.9 - Anemia, unspecified, R13.10 - Dysphagia, unspecified Coding Level of Care Code New Pt New Pt Level 4 (21106) Patient Type New Diagnoses Anemia, unspecified type D64.9 Anemia type: unspecified type Dysphagia, unspecified type R13.10 Dysphagia type: unspecified Constipation, unspecified constipation type K59.00 Constipation type: unspecified constipation type
--- OUTSIDE RECORDS SUMMARY | 2025-08-18 16:36 | XMS_ITS | Patient Health Record ---
Author Organization [facility] Address [address] [place] [address] Care Team Providers Care Spooler Operator Name Role Phone Hilda Rivers M.D. Primary Care Provider Yoseph Neil Jr Unavailable Allergies No Known Allergies Reason For Referral No Information Medications Medication SIG (Take, Route, Frequency, Duration) Notes Start Date End Date Status Vitamin D Active Probiotic Active Vitamin C Active Multivitamin - 1 tablet Orally Once a day; Duration: 30 day(s) Active Vitamin B Complex Ac tive Levothyroxine Sodium 100 MCG TAKE 1 TABL ET BY MOUTH EVERY DAY Oral; Duration: 90 Active Tamsulosin HCl 0.4 MG Oral; Duration: 30 Active Social History Tobacco Use: Social [...] Problem Status W/U Status Risk Notes Problem Colon cancer screening (189624089) Colon cancer screening (Z12.11) Active confirmed Problem Constipation (18733592) Intermittent constipation (K59.09) Active confirmed Plan Of Treatment Future Test Test Name Order Date COLONOSCOPY 12/10/2023 Insurance Providers Payer Name Payer Address Payer Phone Subscriber Number Group Number Insured Name Patient Relationship to Insured Coverage Start Date Coverage End Date MEDICARE OF [place] [address] [place] [address] [phone] [id number] GOLDIE BAKER Self - patient is the insured MEDICAID OF [facility] [address] [place] [address] [phone] [id number] GOLDIE BAKER Self - patient is the insured Medical (General) History Medical History History ICD Code BARNARD with post-ablative hypothyroidism BPH with 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
--- OUTSIDE RECORDS SUMMARY | 2025-08-18 16:36 | XMS_ITS | Clinical Summary ---
Author Organization [facility] Address [address] [address] Phone Care Team Providers Care Cloth Shearer Name Role Phone Unavailable Primary Care Provider [...] file Medical Devices Not on file Insurance [facility] MEDIC[facility] PART A & [place] [facility] [place] [facility] MED[facility] PART A & B Additional Source Comments The information contained in this document represents components of the legal health record. It is not the complete legal health record.[facility]
== END 2025-08-18 15:50 | disposition home or self-care (01) ==
LOC: HO.HGI 14:55
PROVIDERS: PCP Internal Medicine; Visit Provider Nurse Practitioner Family
DX: D64.9 Anemia, unspecified (principal); R13.10 Dysphagia, unspecified; K59.00 Constipation, unspecified
CPT/HCPCS: 99204

== ENCOUNTER → 2025-08-18 14:55 | Outpatient (BNVA) | payer MEDICARE, MEDICAID, SELFPAY | PROVIDERS: PCP Internal Medicine; Visit Provider Nurse Practitioner Family | DX: D64.9 Anemia, unspecified (principal); R13.10 Dysphagia, unspecified; K59.00 Constipation, unspecified | CPT/HCPCS: 99202 ==

== ENCOUNTER 2025-09-14 09:56 | Outpatient (REF) | payer MEDICARE, MEDICAID, SELFPAY ==
[2025-09-14 12:47] LABS: Free T4 (Free Thyroxine) 1.01 ng/dL (0.71-1.85)
--- OUTSIDE RECORDS SUMMARY | 2025-09-14 14:31 | XMS_ITS | Encounter Summary ---
Author Organization [employer] Address [address] [facility] 7t [place] [address] Care Team Providers Care Produce Department Manager Name Role Phone Hilda Hill MD Primary Care Provide r Reason for Visit * Reason Onset Date Comments Call Back Request 11/18/2023 Encounter Details Date Type Department Care Team ([facility] Contact Info) Description 11/18/2023 Telephone [facility] MEDICINE [address] [place] [address] Hilda Hill MD [address] [place] [address] Call Back Request Social History Tobacco Use [...] 2:53 PM EST TC placed to pt [phone] in regards to ortho referral. Pt reports he was [place] [facility] [place] [facility] [place] called pt and advised him he had to be seen at [facility] because that is where he was seen [...] pt has requested. Please contact pt at [phone] documented in this encounter Plan of Treatment Upcoming Encounters Date Type Department Care Team (Late st Contact Info) Description 09/15/2025 3:00 PM EST Office Visit [facility] ADULT DENTAL [address] [place] [address] Phoebe Farris [address] [place] [address] documented as of this encounter Visit Diagnoses Not on filedocumented in this encounter Care Teams Produce Department Manager Relationship Specialty Start Date End Date Hilda Hill MD [address] [place] [address] PCP - General Family Medicine 09/03/18 documented as of this encounter
--- OUTSIDE RECORDS SUMMARY | 2025-09-14 14:31 | XMS_ITS | Encounter Summary ---
Author Organization [employer] Address [address] [facility] [address] [place] [address] Care Team Providers Care Fitness/Wellness Director Name Role Phone Hilda Hill MD Primary Care Provide r Encounter Details Date Type Department Care Team (Late st Contact Info) Description 04/22/2024 Orders Only [facility] MEDICINE [address] [place] [address] ProviderTeresa MD Social History Tobacco Use Types [...] the past 12 months, has t he [employer], gas, oil or water company threatened to [...] Description 09/15/2025 3:00 PM EST Office Visit [facility] ADULT DENTAL [address] [place], [place] [phone] [place], [place] [address] [place] [address] documented as of this encounter Procedures Procedure [...] documented as of this encounter Care Teams Fitness/Wellness Director Relationship Specialty Start Date End Date Hilda Hill MD [address] [place] [address] PCP - General Family Medicine 09/03/18 documented as of this encounter
--- OUTSIDE RECORDS SUMMARY | 2025-09-14 14:31 | XMS_ITS | Encounter Summary ---
Author Organization [employer] Address [address] [facility] [address]t [place] [address] Care Team Providers Care It Software Developer Name Role Phone Hilda Hill MD Primary Care Provide r Encounter Details Date Type Department Care Team (Latest Contact Info) Description 06/10/2019 Abstract [facility] CONVERSIONS Dental, Provider, DDS Social History [...] Description 09/15/2025 3:00 PM EST Office Visit [facility] ADULT DENTAL [address] [place] [address] [place], Phoebe [address] [place] [address] documented as of this encounter Visit Diagnoses Not on filedocumented in this encounter Care Teams It Software Developer Relationship Specialty Start Date End Date Hilda Hill MD [address] [place] [address] PCP - General Family Medicine 09/03/18 documented as of this encounter
--- OUTSIDE RECORDS SUMMARY | 2025-09-14 14:31 | XMS_ITS | Encounter Summary ---
Author Organization [employer] Address [address] [facility] 7t [place] [address] Care Team Providers Care Labor Economist Name Role Phone Hilda Hill MD Primary Care Provide r Encounter Details Date Type Department Care Team (Late Contact Info) Description 02/12/2023 Orders Only [facility] MEDICINE [address] [place], [place] [phone] Nadja Beatty LPN Social History Tobacco Use [...] Description 09/15/2025 3:00 PM EST Office Visit [facility] ADULT DENTAL [address] [place], [place] [phone] [place], Phoe[place] [address] [place] [address] documented as of this encounter Procedures Procedure Name Priority Date/Time Associated Diagnosis Comments HIGH SENSITIVITY TROPONIN I Routine 10/25/2023 12:07 PM EST CBC WITH AUTO DIFFERENTIAL Routine 10/25/2023 12:07 PM EST BASIC METABOLIC PANEL Routine 10/25/2023 12:07 PM EST documented in this encounter Results * High Sensitivity Troponin I (10/25/2023 12:07 PM EST) [facility] TROPONIN I HIGH SENSITIVITY 2.7 <3.5 - 35.0 ng/L [facility] Comment:The [place]ck[place] high sens itivity Troponin-I results should beused in conjunction with other diagnostic information suchas ECG, clinical observations and information, and patientsymptoms to aid in the diagnosis of MD. 10/25/2023 12:0 7 PM EST 10/25/2023 12:12 PM EST us Generic External Data Provider LAB BLOOD ORDERAB LES Final Result [facility] [address] [place] [phone] * (ABNORMAL) Basic Metabolic Panel (10/25/2023 12:07 PM EST) [facility] Sodium 138 135 - 145 mmol/L [facility] Potassium 4.3 3.3 - 5.1 mmol/L [facility] Chloride 104 96 - 108 mmol/L [facility] Carbon Dioxide 26 22 - 29 mmol/L [facility] Anion Gap 12 12 - 20 [facility] Urea Nitrogen (BUN) 18(H) 9 - 16 mg/dL [facility] Creatinine, Serum 0.94 0.5 - 1.4 mg/dL [facility] Creatinine Clr Calc Pharmacy 67.0 [facility] Comment:eGFR (calculated fro m the MDRD study equation) and eCrCl(calculated from the Cockcroft-Gault equation) are based ondifferent parameters and may not yield comparable results.If eCrCl result is absurd, please check patient'sheight/weight. Estimated Glomerular Filt Rate >60 [facility] Comment:NOTE: For -Am erican individuals, multiply the result by 1.210.Chronic Kidney Disease: Estimated GFR < 60 mL/min/1.08h5[place] Kidney Disease: Estimated GFR < 15 mL/min/1.73m2 Glucose 134(H) 60 - 115 mg/dL [facility] Calcium 9.7 8.4 - 10.2 mg/dL [facility] 10/25/2023 12:0 7 PM EST 10/25/2023 12:12 PM EST us Generic External Data Provider LAB BLOOD ORDERAB LES Final Result [facility] [address] [place] [phone] * (ABNORMAL) CBC auto differential (10/25/2023 12:07 PM EST) White Blood Count 11.2(H) 4.8 - 10.8 X10*3/uL [facility] Red Blood Count 4.70 4.60 - 5.80 X10*6/uL [facility] Hemoglobin 13.7(L) 14.0 - 18.0 g/dl [facility] Hematocrit 40.0(L) 42.0 - 52.0 % [facility] Mean Corpuscular Volume 85.1 80.0 - 98.0 fL [facility] Mean Corpuscular Hemoglobin 29.1 27.0 - 33.0 pg [facility] Mean Corpuscular HGB Conc 34.3 31.0 - 36.0 g/dl [facility] Red Cell Distribution Width 13.6 11.0 - 16.0 % [facility] Platelet Count 234 160 - 400 X10*3/uL [facility] Mean Platelet Volume 9.0(L) 9.4 - 12.4 fL [facility] Neutrophils Percent Auto 79.8(H) 45 - 73 % [facility] Imm Gran Pct Auto 0.5(H) 0.0 - 0.4 % [facility] Lymphocytes Percent Auto 12.4(L) 20 - 40 % [facility] Monocytes Percent Auto 7.2 2 - 11 % [facility] Eosinophils Percent Auto 0.0 0 - 4 % [facility] Basophils Percent Auto 0.1 0 - 2 % [facility] NRBC Pct Auto 0.0 0.0 - 0.2 /100WBC [facility] Neutrophils Absolute Auto 8.9(H) 2.0 - 8.3 x10*3/uL [facility] Imm Gran Abs Auto 0.06(H) 0.00 - 0.03 X10*3/uL [facility] Lymphocytes Absolute Auto 1.4 1.2 - 4.9 X10*3/uL [facility] Monocytes Absolute Auto 0.8 0.1 - 1.2 X10*3/uL [facility] Eosinophils Absolute Auto 0.0 0.0 - 0.4 X10*3/uL [facility] Basophils Absolute Auto 0.0 0.0 - 0.2 X10*3/uL [facility] NRBC Abs Auto 0.000 0.0 - 0.012 X10*3/uL [facility] 10/25/2023 12:0 7 PM EST 10/25/2023 12:12 PM EST us Generic External Data Provider LAB BLOOD ORDERAB LES Final Result Performing Organization Address City/State/[facility] Co de Phone Number [facility] [address] [place] [phone] documented in this encounter Visit Diagnoses Not on filedocumented in this encounter Care Teams Labor Economist Relationship Specialty Start Date End Date Hilda Hill MD [address] [place] [phone] PCP - General Family Medicine 09/03/18 documented as of this encounter
--- OUTSIDE RECORDS SUMMARY | 2025-09-14 14:31 | XMS_ITS | Clinical Summary ---
Author Organization [facility] Address [address] [facility] [address] [place] [phone] Phone Care Team Providers Care Mold Design Engineer Name Role Phone Unavailable Primary Care Provider [...] file Medical Devices Not on file Insurance [facility] MEDICARE PART A & B [place] [facility] [place] & [place] & B [facility] MEDIC[facility] PART A & B [facility] MEDICARE PART A & B Additional Source Comments The information contained in this document represents components of the legal health record. It is not the complete legal health record.[facility]
--- OUTSIDE RECORDS SUMMARY | 2025-09-14 14:31 | XMS_ITS | Encounter Summary ---
Author Organization [employer] Address [address] [facility] [address] [place] [address] Care Team Providers Care Patient Consumer Marketer Name Role Phone Hilda Hill MD Primary Care Provide r Encounter Details Date Type Department Care Team (Latest Contact Info) Description 06/16/2022 Abstract [facility] CONVERSIONS Dental, Provider, DDS Social History [...] Description 09/15/2025 3:00 PM EST Office Visit [facility] ADULT DENTAL [address] [place] [address] [place], Phoebe [address] [place] [address] documented as of this encounter Visit Diagnoses Not on filedocumented in this encounter Care Teams Patient Consumer Marketer Relationship Specialty Start Date End Date Hilda Hill MD [address] [place] [address] PCP - General Family Medicine 09/03/18 documented as of this encounter
--- OUTSIDE RECORDS SUMMARY | 2025-09-14 14:32 | XMS_ITS | Encounter Summary ---
Author Organization [employer] Address [address] [facility] [address]t [place] [address] Care Team Providers Care Director Perioperative Name Role Phone Hilda Hill MD Primary Care Provide r Encounter Details Date Type Department Care Team (Latest Contact Info) Description 04/19/2021 Abstract [facility] CONVERSIONS Dental, Provider, DDS Social History Tobacco [...] Description 09/15/2025 3:00 PM EST Office Visit [facility] ADULT DENTAL [address] [place] [address] [place], [place] [address] [place] [address] documented as of this encounter Visit Diagnoses Not on filedocumented in this encounter Care Teams Director Perioperative Relationship Specialty Start Date End Date Hilda Hill MD [address] [place] [address] PCP - General Family Medicine 09/03/18 documented as of this encounter
--- OUTSIDE RECORDS SUMMARY | 2025-09-14 14:32 | XMS_ITS | Encounter Summary ---
Author Organization [employer] Address [address] [facility] [address] [place] [address] Care Team Providers Care Primary Special Educator Name Role Phone Hilda Hill MD Primary Care Provide r Encounter Details Date Type Department Care Team ([facility] st Contact Info) Description 09/14/2025 Orders Only [facility] MEDICINE [address] [place] [address] Hilda Hill MD [address] [place] [address] Social History Tobacco Use Types Packs/Day Years Used Date Smoking Tobacco: Never Passive Smoke Exposure: Never Smokeless Tobacco: Never Alcohol Use Standard Drinks/Week Comments Yes 0 (1 standard drink = 0.6 oz pur e alcohol) Depression Answer Date Recorded Patient Health Questionnaire-9 Score 0 08/31/2025 Patient Health Questionnaire-9 Score 0 08/31/2025 Last PHQ-9: Questionnaire Data Not on file 1 10/31/2024 Housing Stability Answer Date Recorded What is [...] Date Recorded Patient Health Questionnaire-2 Score 0 08/31/2025 Internet Access Answer Date Recorded Internet Access [...] Description 09/15/2025 3:00 PM EST Office Visit [facility] ADULT DENTAL [address] [place] [address] [place], Phoe[place] [address] [place] [address] documented as of this encounter Procedures Procedure Name Priority Date/Time Associated Diagnosis Comments T4, FREE Routine 09/14/2025 10:00 AM EST documented in this encounter Results * T4, Free (09/14/2025 10:00 AM EST) Free T4 (Free Thyroxine) 1.01 0.71 - 1.85 ng/dL [facility] 09/14/2025 10:0 0 AM EST 09/14/2025 11:07 AM EST us Hilda Talamantes MD LAB BLOOD ORDERABLES Final Result [facility] [address] [place] [phone] documented in this encounter Visit Diagnoses Not on filedocumented in this encounter Additional Health Concerns Assessment Noted Time PHQ-9 Depression Total Score: 0 08/31/20 25 1:46 PM EST documented as of this encounter Care Teams Primary Special Educator Relationship Specialty Start Date End Date Hilda Hill MD [address] [place] [address] PCP - General Family Medicine 09/03/18 documented as of this encounter
--- OUTSIDE RECORDS SUMMARY | 2025-09-14 14:33 | XMS_ITS | Clinical Summary ---
Author Organization [email or web address] Address [address] [facility] 7t [place] [address] Care Team Providers Care Support Specialist Name Role Phone Hilda Hill MD [...] 1 (one) time each day. 9 Active ketoconazole (NIZOral) 2 % shampooIndicati ons:Seborrheic dermatitis Apply topically 2 (two) times a week. 120 mL 5 Active hydrocortisone 2.5 % creamIndication s:Seborrheic dermatitis Apply topically 2 times daily. 20 g 5 Active levothyroxine (Synthroid, Levoxyl) 100 MCG tablet TAKE 1 TABLET BY MOUTH ONCE DAILY 90 tablet 1 5 Active Active Problems Problem Noted Date Diagnosed Date Chronic fatigue 07/31/2025 Assessment & Plan (07/31/2025 4:21 PM EDT): Additional blood work ordered today patient will be contacted with results Constipation 12/07/2024 Anemia 09/09/2024 Assessment & Plan (08/31/2025 2:13 PM EST): Patient has upcoming appointment for hematology/oncology on 09/25/25 I advise not to miss this appointment C/w diet rich in iron Assessment & Plan (07/31/2025 4:21 PM EDT): I will order additional blood work for him and contact him with results I decided to put in a referral to a fried cake maker in light that his anemia has been [...] Counseling done I will refer patient to [facility] Patient declines medications Acute pain of left [...] hypothyroidism 11/12/2023 11/12/19 24 Assessment & Plan (08/31/2025 2:09 PM EST): TSH will be repeated in 2 more weeks Assessment & Plan (05/04/2024 2:46 PM EDT): [...] Encounters Date Type Department Care Team Description 09/14/2025 Orders Only [facility] MEDICINE [address] [place] [address] Hilda Hill MD 08/31/2025 1:45 PM EST Telemedicine [facility] [address] [place] [address] Hilda Hill MD Anemia, unspecified type (Primary Dx); Acquired hypothyroidism 08/31/2025 Travel 08/10/[address] [address] Hilda Hill MD telephone call 08/06/[address] [address] Hilda Hill MD 08/04/2025 4:00 PM EDT Office Visit [address] [address] Rafita Montaño MD History of basal cell carcinoma (BCC) (Primary Dx); Seborrheic dermatitis 08/04/2025 Travel 07/31/2025 1:45 PM EDT Office Visit [address] [address] Hilda Hill MD Anemia, unspecified type (Primary Dx); Chronic fatigue; Encounter for immunization 07/31/2025 Orders Only [address] [address] Hilda Hill MD 07/31/2025 Travel 07/21/2025 Patient Outreach [address] [address] Hilda Hill MD Pre-visit Planning ((Unable to reach for PVP screening, LVM) to be completed in office ) 07/01/2025 Orders Only GENERIC EXTERNAL DATA DEPARTMENT Provider, Generic External Data 06/22/2025 Telephone [facility] [address] [place] [phone] Stefano Francois MD 06/21/2025 11:20 AM EDT Office Visit [facility] [address] [place] [address] Stefano Francois MD Skin lesion of face (Primary Dx); Elevated blood pressure reading in office without diagnosis of hypertension 06/21/2025 Travel 06/20/2025 Telephone [facility] [address] [place] [address] Hilda Hill MD telephone call from Last 3 Months Immunizations Immunization Administration [...] Sign Reading Time Taken Comments Blood Pressure 128/70 08/04/2025 1:09 PM EDT Pulse 74 08/04/2025 1:09 PM EDT Temperature 36.5 C (97.7 F) 08/04/2025 1:09 PM EDT Respiratory Rate 16 08/04/2025 1:09 PM EDT Oxygen Saturation 99% 07/31/2025 1:48 PM EDT Inhaled Oxygen Concentration - - Weight 63.5 kg (140 lb) 08/04/2025 1:09 PM EDT Height 170.2 cm (5' 7 ) 08/04/2025 1:09 PM EDT Body Mass Index 21.93 08/04/2025 1:09 PM EDT Plan of Treatment Upcoming Encounters Date Type Department Care Team (Late st Contact Info) Description 09/15/2025 3:00 PM EST Office Visit [facility] ADULT DENTAL [address] [place] [address] Kaleigh, Phoebe [address] [place] [address] Health Maintenance Due Date Last Done Comments CT Colonography 1953 FIT DNA/Cologuard 1955 FIT 1955 FOBT 1955 Sigmoidoscopy 1955 Hepatitis A Vaccines (1 of 2 - Risk 2-dose series) 02/14/1972 08/24/2003, 02/08/2003 RSV Patients and Patients Aged 60 years or older (1 - Risk 50-74 years 1-dose series) 2003 Hepatitis B Vaccines (1 of 3 - Risk 3-dose series) 2013 Dental Oral Exam 11/28/2024 05/27/2024, , 06/16/2022 Derm Melanoma Skin Check 03/09/2025 09/09/2024, 08/26 COVID-19 Vaccine ( season) 2025 09/09/2024, 09/07/2023, 09/02/2022, Additional history exists Dental X-Ray: Bitewings 07/09/2025 07/08/20 24, 05/27/2024, 09/16/2023, Additional history exists Dental Prophylaxis 08/02/2025 01/30/2025, 1 , 09/16/2023, Additional history exists Tobacco Screening 07/31/2026 07/31/2025 Alcohol/Substance Use Screening 08/31/2026 08/31/2025 Depression Screening 08/31/2026 08/31/2025, 08/31/20 25 SDOH Screening 08/31/2026 08/31/2025 Dental X-Ray: Full Mouth 09/17/2026 09/16/2023, 05/26 [...] T4, FREE Routine 09/14/2025 10:00 AM EST TSH W/REFLEX TO FT4 Routine 09/14/2025 1 0:00 AM EST Acquired hypothyroidism T4, FREE Routine 07/31/2025 2:31 PM EDT MADHURI SCREEN, IFA, W/REFL TITER AND PATTERN Routine 07/31/2025 2:31 PM EDT Anemia, unspecified type Chronic fatigue HIV 1/2 ANTIGEN/ANTIBODY, FOURTH GENERATION W/RFL Routine 07/31/2025 2:31 PM EDT Anemia, unspecified type Chronic fatigue TSH W/REFLEX TO FT4 Routine 07/31/2025 2 :31 PM EDT Anemia, unspecified type Chronic fatigue COMPREHENSIVE METABOLIC PANEL Routine 07/31/2025 2:31 PM EDT Anemia, unspecified type Chronic fatigue PATHOLOGIST REVIEW - CBC Routine 07/31/2025 2:31 PM EDT Anemia, unspecified [...] Relevant to Health Maintenance Results * (ABNORMAL) TSH W/Reflex to FT4 (09/14/2025 10:00 AM EST) Only the most recent of2 resultswithin the time period is included. TSH reflex Free T4 7.92(H) 0.32 - 4.0 uIU/mL [facility] Blood Venous blood specimen / Unknown 09/14/2025 10:00 AM EST 09/14/2025 11:07 AM EST us Hilda Talamantes MD LAB BLOOD ORDERABLES Final Result Performing Organization Address [facility] Co de Phone Number [facility] [address] [place] [phone] * T4, Free (09/14/2025 10:00 AM EST) Only the most recent of2 resultswithin the time period is included. Free T4 (Free Thyroxine) 1.01 0.71 - 1.85 ng/dL [facility] 09/14/2025 10:0 0 AM EST 09/14/2025 11:07 AM EST us Hilda Talamantes MD LAB BLOOD ORDERABLES Final Result [facility] [address] [place] [phone] * Pathologist Review Of Peripheral Smear (07/31/2025 2:31 PM EDT) Pathologist Review - CBC SEE NOTE [facility] Comment:- Normocytic and nor mochromic anemia: consider anemia ofchronic disease, blood loss vs bone marrow disorder vs otheretiologies.Reviewed by Jackelyn Turcios MD Blood Venous blood specimen / Unknown 07/31/2025 2:31 PM EDT 07/31/2025 4:00 PM EDT us Hilda Talamantes MD LAB BLOOD ORDERABLES Final Result Performing Organization Address [facility] Co de Phone Number [facility] [address] [place] [phone] * (ABNORMAL) CBC auto differential (07/31/2025 2:31 PM EDT) White Blood Count 4.6(L) 4.8 - 10.8 X10*3/uL [facility] Red Blood Count 4.22(L) 4.60 - 5.80 X10*6/uL [facility] Hemoglobin 12.9(L) 14.0 - 18.0 g/dl [facility] Hematocrit 36.6(L) 42.0 - 52.0 % [facility] Mean Corpuscular Volume 86.7 80.0 - 98.0 fL [facility] Mean Corpuscular Hemoglobin 30.6 27.0 - 33.0 pg [facility] Mean Corpuscular HGB Conc 35.2 31.0 - 36.0 g/dl [facility] Red Cell Distribution Width 13.6 11.0 - 16.0 % [facility] Platelet Count 228 160 - 400 X10*3/uL [facility] Mean Platelet Volume 9.2(L) 9.4 - 12.4 fL [facility] Neutrophils Percent Auto 62.3 45 - 73 % [facility] Imm Gran Pct Auto 0.9(H) 0.0 - 0.4 % [facility] Lymphocytes Percent Auto 26.6 20 - 40 % [facility] Monocytes Percent Auto 10.0 2 - 11 % [facility] Eosinophils Percent Auto 0.2 0 - 4 % [facility] Basophils Percent Auto 0.0 0 - 2 % [facility] NRBC Pct Auto 0.0 0.0 - 0.2 /100WBC [facility] Neutrophils Absolute Auto 2.9 2.0 - 8.3 x10*3/uL [facility] Imm Gran Abs Auto 0.04(H) 0.00 - 0.03 X10*3/uL [facility] Lymphocytes Absolute Auto 1.2 1.2 - 4.9 X10*3/uL [facility] Monocytes Absolute Auto 0.5 0.1 - 1.2 X10*3/uL [facility] Eosinophils Absolute Auto 0.0 0.0 - 0.4 X10*3/uL [facility] Basophils Absolute Auto 0.0 0.0 - 0.2 X10*3/uL [facility] NRBC Abs Auto 0.000 0.0 - 0.012 X10*3/uL [facility] Blood Venous blood specimen / Unknown 07/31/2025 2:31 PM EDT 07/31/2025 4:00 PM EDT us Hilda Talamantes MD LAB BLOOD ORDERABLES Final Result [facility] [address] [place] [phone] * HIV-1/2 Antigen and Antibodies, Fourth Generation, with Reflexes (07/31/2025 2:31 PM EDT) HIV AB/AG Nonreactive Nonreactive [facility] Comment:HIV-1 p24 Ag and/or HIV-1/HIV-2 Ab not detected.A test result that is nonreactive does not exclude thepossibility of exposure to or infection with HIV-1 and/orHIV-2. Nonreactive results in this assay for individualswith prior exposure to HIV-1 and/or HIV-2 may be due toantigen and antibody levels that are below the limit ofdetection of this assay.[employer] HIV Ag/Ab Combo assay result andsupplemental assay results should be interpreted inconjunction with the patient's clinical presentation,history and other laboratory results. If the results areinconsistent with clinical evidence, additional testing issuggested to confirm the result. Blood Venous blood specimen / Unknown 07/31/2025 2:31 PM EDT 07/31/2025 4:03 PM EDT us Hilda Talamantes MD LAB BLOOD ORDERABLES Final Result [facility] [address] [place] [phone] * MADHURI Screen,IFA, with Reflex to Titer and Pattern (07/31/2025 2:31 PM EDT) Anti Nuclear Antibody Screen NEGATIVE NEGATIVE [facility] Comment:MADHURI IFA is a first l ine screen for detecting thepresence of up to approximately 150 autoantibodies invarious autoimmune diseases. A negative MADHURI IFA resultsuggests an MADHURI-associated autoimmune disease is notpresent at this time, but is not definitive. If thereis high clinical suspicion for Sjogren's syndrome,testing for anti-SS-A/Ro antibody should be considered.Anti-Brigitte-1 antibody should be considered for clinicallysuspected inflammatory myopathies.AC-0: NegativeInternational Consensus on MADHURI Patterns(https://doi.org/10.1515/tgwo-5759-2283)For additional information, please refer tohttp://education.[employer]/faq/DDR390(This link is being provided for informational/educational purposes only.)THIS TEST WAS PERFORMED AT:[employer] [place] [phone] MONIQUE MD MADHURI Titer [facility] MADHURI Pattern TNP [facility] MADHURI Titer 2 TNP [facility] MADHURI Pattern 2 TNP [facility] MADHURI TITER 3 [facility] MADHURI PATTERN 3 [facility] Blood Venous blood specimen / Unknown 07/31/2025 2:31 PM EDT 07/31/2025 4:03 PM EDT Hilda Talamantes MD LAB BLOOD ORDERABLES Final Result [facility] [address], [place] [phone] * (ABNORMAL) Comprehensive Metabolic Panel (07/31/2025 2:31 PM EDT) Sodium 138 135 - 145 mmol/L [facility] Potassium 4.3 3.3 - 5.1 mmol/L [facility] Chloride 103 96 - 108 mmol/L [facility] Carbon Dioxide 29 22 - 29 mmol/L [facility] Anion Gap 10(L) 12 - 20 [facility] Urea Nitrogen (BUN) 16 9 - 16 mg/dL [facility] Creatinine, Serum 0.93 0.5 - 1.4 mg/dL [facility] Estimated Glomerular Filt Rate >60 [facility] Comment:Chronic Kidney Disea se: Estimated GFR < 60 mL/min/1.18i5Mkoizw Kidney Disease: Estimated GFR < 15 mL/min/1.73m2 Glucose 106 60 - 115 mg/dL [facility] Calcium 9.5 8.4 - 10.2 mg/dL [facility] Bilirubin, Total 0.4 0.0 - 1.0 mg/dL [facility] Aspartate Amino Transferase 36 5 - 37 U/L [facility] Alanine Aminotransferase 32 0 - 40 U/L [facility] Total Protein 6.9 6.5 - 8.0 g/dL [facility] Albumin Level 4.6 3.5 - 5.0 g/dL [facility] Alkaline Phosphatase 47 39 - 117 U/L [facility] Blood Venous blood specimen / Unknown 07/31/2025 2:31 PM EDT 07/31/2025 4:03 PM EDT us Hilda Talamantes MD LAB BLOOD ORDERABLES Final Result Performing Organization Address City/[facility]/ZIP Co de Phone Number [facility] [address] [place] [phone] * PSA,Total (07/01/2025 1:17 PM EDT) Prostate Specific Antigen 1.21 <0.05 - 4.0 ng/mL [facility] Comment:PSA methodology: Luis Nuñez i ChemiluminescentMicroparticle Immunoassay (CMIA) 07/01/2025 1:1 7 PM EDT 07/01/2025 3:26 PM EDT us Generic External Data Provider LAB BLOOD ORDERAB LES Final Result Performing Organization Address City/[facility]/ZIP Co de Phone Number [facility] [address] [place] [phone] * Lipid Panel, Standard (10/03/2024 1:22 PM EST) Triglycerides 138 <150 mg/dL [facility] Comment:Desirable Triglyceri de: less than 150 mg/dLBorderline High Triglyceride 150-199 mg/dLHigh Triglyceride: 200-499 mg/dLVery High Triglyceride: greater than or equal to 5OO mg/dL Cholesterol 147 <200 mg/dL [facility] Comment:Desirable Cholestero l: less than 200 mg/dLBorderline High Cholesterol: 200-239 mg/dLHigh Cholesterol: greater than 239 mg/dL LDL Cholesterol Calculated 71 <100 mg/dL [facility] Comment:Desirable LDL: less than 100 mg/dLNear Optimal/Above Optimal LDL: 110- 129 mg/dLBorderline High LDL: 130-159 mg/dLHigh LDL: 160-189 mg/dLVery High LDL: greater than or equal to 190 mg/dL HDL Cholesterol 49 >40 mg/dL [facility] Comment:Desirable HDL: great er than 40 mg/dL Note: This HDL assay may give artificially low results in patients with liver disease. Blood Venous blood specimen / Unknown 10/03/2024 1:22 PM EST 10/03/2024 4:52 PM EST us Hilda Talamantes MD LAB BLOOD ORDERABLES Final Result [facility] [address] [place] [address] [phone] * Colonoscopy (01/06/2024) Colonoscopy Normal Normal Narrative Brianna Hawk - 01/06/2024 Recommended 10 years. See see external hospital admission note on 01/06/2024 us Historical Provider HEALTH MAINTENANCE Final Result from Last 3 Months or Most Recently Relevant to Health Maintenance Insurance [facility] STANDARD MEDICARE DENTAL-[facility] MEDICAID STAND ADULT Care Teams Support Specialist Relationship Specialty Start Date End Date Hilda Hill MD [address] [place] [phone] PCP - General Family Medicine 09/03/18
== END 2025-09-14 09:57 | disposition home or self-care (01) ==
LOC: HO.HHCL 09:56
PROVIDERS: PCP Internal Medicine; Visit Provider Internal Medicine
DX: E03.9 Hypothyroidism, unspecified (principal)
CPT/HCPCS: 36415; 84439; 84443

== ENCOUNTER → 2025-09-28 13:00 | Outpatient (BNV) | payer MEDICARE, MEDICAID, SELFPAY | PROVIDERS: PCP Internal Medicine; Referring Provider Internal Medicine; Visit Provider Internal Medicine Medical Oncology | DX: D64.9 Anemia, unspecified (principal) | CPT/HCPCS: 99204 ==

== ENCOUNTER 2025-10-24 07:57 | Outpatient (REF) | payer MEDICARE, MEDICAID, SELFPAY ==
--- OUTSIDE RECORDS SUMMARY | 2025-10-24 09:20 | XMS_ITS | Patient Health Record ---
Author Organization [facility] Address [address] [place] [address] Care Team Providers Care Lithographed Plate Inspector Name Role Phone Hilda Rivers M.D. Primary Care Provider Yoseph Neil Jr Unavailable [phone] Allergies No Known Allergies Reason For Referral No Information Medications Medication SIG (Take, Route, Frequency, Duration) Notes Start Date End Date Status Vitamin D Active Probiotic Active Vitamin C Active Multivitamin - Tablet 1 tablet Orally On ce a day; Duration: 30 day(s) Active Vitamin B Complex Ac tive Levothyroxine Sodium 100 MCG Tablet TAKE 1 TABLET BY MOUTH EVERY DAY Oral; Duration: 90 Active Tamsulosin HCl 0.4 MG Capsule Oral; Duration: 30 Active Social History Tobacco Use: Social History Observation Description Date Details (start date - stop date) Never Smoker NA - NA Social History Drugs/Alcohol: Social Info Question Answer Notes Alcohol Screen Did you have a drink containing alcohol in the past year? Yes How often did you have a drink containing alcohol in the past year? Never (0 point) How many drinks did you have on a typical day when you were drinking in the past year? 1 or 2 drinks (0 point) Points 0 Interpretation Negative Tobacco Use: Social Info Question Answer Notes Tobacco Use/Smoking Patient is a nonsmoker Additional Details Category Social Info Options Details Miscellaneous: Marital status: Occupation: retired [employer] Section Notes: occasional beer Problems Problem Type SNOMED Code ICD Code Onset Dates Problem Status W/U Status Risk Notes Problem Colon cancer screening (589594667) Colon cancer screening (Z12.11) Active confirmed Problem Constipation (84162953) Intermittent constipation (K59.09) Active confirmed Plan Of Treatment Future Test Test Name Order Date COLONOSCOPY 12/10/2023 Insurance Providers Payer Name Payer Address Payer Phone Subscriber Number Group Number Insured Name Patient Relationship to Insured Coverage Start Date Coverage End Date MEDICARE OF [place] [address] ERASMO FAIR [id number] GOLDIE BAKER Self - patient is the insured MEDICAID OF [facility] [address] [place] [address] [id number] GOLDIE BAKER Self - patient is the insured Medical (General) History Medical History History ICD Code BARNARD with post-ablative hypothyroidism BPH with 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
--- OUTSIDE RECORDS SUMMARY | 2025-10-24 09:20 | XMS_ITS | Encounter Summary ---
Author Organization [employer] Address [address] [facility] 7t [place] [address] Care Team Providers Care Senior Front End Web Developer Name Role Phone Hilda Hill MD Primary Care Provide r Reason for Visit * Reason Onset Date Comments Call Back Request 11/18/2023 Encounter Details Date Type Department Care Team ([facility] Contact Info) Description 11/18/2023 Telephone [facility] MEDICINE [address] [place] [address] Hilda Hill MD [address] [place] [address] Call Back Request Social History Tobacco Use [...] 2:53 PM EST TC placed to pt [phone] in regards to ortho referral. Pt reports he was referred to ortho at [facility] however [facility] ortho called pt and advised him he had to be seen at [facility] because that is where he was seen [...] pt has requested. Please contact pt at [phone] documented in this encounter Plan of Treatment Not on file documented as of this encounter Visit Diagnoses Not on filedocumented in this encounter Care Teams Senior Front End Web Developer Relationship Specialty Start Date End Date Hilda Hill MD [address] [place] [phone] PCP - General Family Medicine 09/03/18 documented as of this encounter
--- OUTSIDE RECORDS SUMMARY | 2025-10-24 09:20 | XMS_ITS | Encounter Summary ---
Author Organization [employer] Address [address] [facility] [address] [place] [address] Care Team Providers Care Cotton Ginner Name Role Phone Hilda Hill MD Primary Care Provide r Encounter Details Date Type Department Care Team (Latest Contact Info) Description 06/16/2022 Abstract [facility] Dental, Provider, DDS Social History Tobacco Use Types Packs/Day Years Used Date Smoking Tobacco: Never Assessed Sex and Gender Information Value Date Recorded Sex Assigned at Male 08/25/2022 10:16 AM EDT Legal Sex Male 10:16 AM EDT Gender Identity Male 08/25/2022 10:16 AM EDT Sexual Orientation Choose not to disclose 2021 10:16 AM EDT documented as of this encounter Plan of Treatment Not on file documented as of this encounter Visit Diagnoses Not on filedocumented in this encounter Care Teams Cotton Ginner Relationship Specialty Start Date End Date Hilda Hill MD [address] [place] [phone] PCP - General Family Medicine 09/03/18 documented as of this encounter
--- OUTSIDE RECORDS SUMMARY | 2025-10-24 09:20 | XMS_ITS | Encounter Summary ---
Author Organization [employer] Address [address] [facility] [address] [address] [place] [address] Care Team Providers Care Materials Coordinator Name Role Phone Hilda Hill MD Primary Care Provide r Encounter Details Date Type Department Care Team (Late st Contact Info) Description 04/22/2024 Orders Only [facility] [address] [place] [address] ProviderTeresa MD Social History Tobacco Use Types [...] is your housing situation today? I have brittayn alcala 08/15/[address] you [...] the past 12 months, has t he [employer] gas, oil or water company threatened to [...] on file documented as of this encounter Procedures Procedure [...] documented as of this encounter Care Teams Materials Coordinator Relationship Specialty Start Date End Date Hilda Hill MD [address] [place] [phone] PCP - General Family Medicine 09/03/18 documented as of this encounter
--- OUTSIDE RECORDS SUMMARY | 2025-10-24 09:20 | XMS_ITS | Clinical Summary ---
Author Organization [facility] Address [address] [address] Phone Care Team Providers Care Medical Record Retrieval Specialist Name Role Phone Unavailable Primary Care Provider [...] file Medical Devices Not on file Insurance [facility] MEDICARE PART A & [place] [facility] [facility] [place] [place] A & [facility] & B [facility] MEDIC[facility] PART A & B Additional Source Comments The information contained in this document represents components of the legal health record. It is not the complete legal health record.[facility]
--- OUTSIDE RECORDS SUMMARY | 2025-10-24 09:21 | XMS_ITS | Clinical Summary ---
Author Organization [employer] Address [address] [facility] 7[address] [place] [address] Care Team Providers Care Residential Pest Control Technician Name Role Phone Hilda Hill MD Primary Care Provide r Allergies No known active allergies Medications * This document contains information received from the source organization and may not represent a complete record from that organization. cholecalciferol (Vitamin D-3) 25 MCG (1000 UT) tablet Take 1 tablet by mouth 1 (one) time each day. 03/13/20 21 Active Multiple Vitamins-Minerals (Multivitamin Adult) chewable tablet Chew 1 tablet 1 (one) time each day. 03/13/20 21 Active omega-3 (Fish Oil) 500 MG capsule Take 1 capsule by mouth 1 (one) time each day. 03/13/20 21 Active VITAMIN B COMPLEX-C PO Take 1 tablet by mouth 1 (one) time each day. 03/13/20 21 Active Ascorbic Acid (vitamin C) 1000 MG tablet Take 1 tablet by mouth 1 (one) time each day. 09/28/20 19 Active ketoconazole (NIZOral) 2 % shampooIndications :Seborrheic dermatitis Apply topically 2 (two) times a week. 120 mL 03/13/20 25 Active Additional Information Patient not taking.Reported on 09/15/2025 hydrocortisone 2.5 % creamIndications:S eborrheic dermatitis Apply topically 2 times daily. 20 g 03/10/20 25 Active Additional Information Patient not taking.Reported on 09/15/2025 levothyroxine (Synthroid, Levoxyl) 100 MCG tablet TAKE 1 TABLET BY MOUTH ONCE DAILY 90 tablet 1 08/07/20 25 Active levothyroxine (Synthroid) 112 MCG tabletIndications: Acquired hypothyroidism Take 1 tablet (112 mcg) by mouth before breakfast. 30 tablet 3 10/18/2025 2:40 PM EST 09/18/20 026 Active Active Problems Problem Noted Date Diagnosed Date Bilateral hydrocele 09/15/2025 Bladder wall thickening 09/15/2025 Enlarged prostate 09/15/2025 Orthostatic hypotension 09/15/2025 Postablative hypothyroidism 09/15/2025 Varicocele 09/15/2025 Chronic periodontitis 09/15/2025 Chronic fatigue 07/31/2025 Assessment & Plan (07/31/2025 [...] to put in a referral to a signal intelligence analyst in light that his anemia has been [...] Counseling done I will refer patient to [facility] Patient declines medications Acute pain [...] for assistance with personal care 11/12/2023 Abnormal gait 10/29/2023 Atherosclerosis of coronary artery without angin a pectoris 10/29/2023 Difficulty walking 10/29/2023 Dysphagia 10/29/2023 Greater trochanteric pain syndrome 10/29/2023 Knee joint effusion 10/29/2023 Muscle weakness 10/29/2023 Osteoarthritis of hip 10/29/2023 Osteoarthritis of knee 10/29/2023 Unsteadiness on feet 10/29/2023 Abnormal PSA 09/14/2023 Dyslipidemia 09/14/2023 Assessment & [...] Encounters Date Type Department Care Team Description 10/18/2025 11:30 AM EST Office Visit [facility] [address] [place] [address] Myron Lombardi DMD 09/18/2025 Results Follow-Up [facility] [address] [place] [address] Hilda Hill MD TSH W/Reflex to FT4 09/18/2025 Orders Only [facility] [address] [place] [address] Hilda Hill MD Acquired hypothyroidism (Primary Dx) 09/15/2025 3:00 PM EST Office Visit [facility] [address] [place] [address] Phoebe Farris Dental plaque (Primary Dx); Generalized gingival recession; Chronic periodontitis 09/15/2025 Telephone [facility] [address] [place] [address] Hilda Hill MD feb recalls 09/14/[address] [facility] [address] [place] [address] Hilda Hill MD 08/31/2025 1:45 PM EST Telemedicine [facility] [place] [address] Hilda Hill MD Anemia, unspecified type (Primary Dx); Acquired hypothyroidism 08/31/2025 Travel 08/10/[address] [facility] [address] [place] [phone] Hilda Hill MD telephone call 08/06/[address] [facility] [address] [place] [phone] Hilda Hill MD 08/04/2025 4:00 PM EDT Office Visit [address] [address] Rafita Montaño MD History of basal cell carcinoma (BCC) (Primary Dx); Seborrheic dermatitis 08/04/2025 Travel 07/31/2025 1:45 PM EDT Office Visit [address] [address] Hilda Hill MD Anemia, unspecified type (Primary Dx); Chronic fatigue; Encounter for immunization 07/31/[address] [facility] [address] [place] [address] Hilda Hill MD 07/31/2025 Travel from Last 3 Months Immunizations Immunization Administration [...] Sign Reading Time Taken Comments Blood Pressure 140/88 09/15/2025 3:06 PM EST Pulse 68 09/15/2025 3:06 PM EST Temperature 36.5 C (97.7 F) 08/04/2025 1:09 PM EDT Respiratory Rate 16 08/04/2025 1:09 PM EDT Oxygen Saturation 99% 07/31/2025 1:48 PM EDT Inhaled Oxygen Concentration - - Weight 63.5 kg (140 lb) 08/04/2025 1:09 PM EDT Height 170.2 cm (5' 7 ) 08/04/2025 1:09 PM EDT Body Mass Index 21.93 08/04/2025 1:09 PM EDT Plan of Treatment Health Maintenance Due Date Last Done Comments CT Colonography 1953 FIT DNA/Cologuard 1953 FIT 1953 FOBT 1955 Sigmoidoscopy 1955 Hepatitis A Vaccines (1 of 2 - Risk 2-dose series) 02/14/1972 08/24/2003, 02/08/2003 RSV Patients and Patients Aged 60 years or older (1 - Risk 50-74 years 1-dose series) 2003 Hepatitis B Vaccines (1 of 3 - Risk 3-dose series) 2013 Derm Melanoma Skin Check 03/09/2025 09/09/2024, 08/26 COVID-19 Vaccine ( season) 2025 09/09/2024, 09/07/2023, 09/02/2022, Additional history exists Dental Oral Exam 03/16/2026 09/15/2025, 11/2023, 09/16/2023, Additional history exists Dental Prophylaxis 03/16/2026 09/15/2025, 0 01/30/2025, 07/29/2024, Additional history exists Alcohol/Substance Use Screening 08/31/2026 08/31/2025 Depression Screening 08/31/2026 08/31/2025, 08/31/20 SDOH Screening 08/31/2026 08/31/2025 Dental X-Ray: Bitewings 09/16/2026 09/15/20 25, 07/08/2024, 05/27/2024, Additional history exists Dental X-Ray: Full Mouth 09/17/2026 09/16/2023, 05/26 Tobacco Screening 10/18/2026 10/18/2025 DTaP/Tdap/Td Vaccines (3 - Td or Tdap) [...] Procedure Name Priority Date/Time Associated Diagnosis Comments DENTURE ADJUSTMENT Routine 10/18/2025 11 :30 AM EST PERIODIC ORAL EVALUATION - ESTABLISHED PATIENT Routine 09/15/2025 3:00 PM EST INTRAORAL - PERIAPICAL FIRST RADIOGRAPHIC IMAGE Routine 09/15/2025 3:00 PM EST Dental plaque Generalized gingival recession Chronic periodontitis ORAL HYGIENE INSTRUCTIONS Routine 09/15/2025 3:00 PM EST CASE PRESENTATION, DETAILED AND EXTENSIVE TREATMENT PLANNING Routine 09/15/2025 3:00 PM EST Dental plaque Generalized gingival recession Chronic periodontitis PROPHYLAXIS - ADULT Routine 09/15/2025 3 :00 PM EST Dental plaque Generalized gingival recession Chronic periodontitis INTRAORAL - PERIAPICAL EACH ADDITIONAL RADIOGRAPHIC IMAGE Routine 09/15/2025 3:00 PM EST Dental plaque Generalized gingival recession Chronic periodontitis BITEWINGS - 2 RADIOGRAPHIC IMAGES Routine 09/15/2025 3:00 PM EST Dental plaque Generalized gingival recession Chronic periodontitis T4, FREE Routine 09/14/2025 10:00 AM EST [...] PM EDT Anemia, unspecified type Chronic fatigue LIPID PANEL, STANDARD Routine 10/03/2024 1:22 PM EST Dyslipidemia HM COLONOSCOPY Routine 01/06/2024 INTRAORAL - COMPLETE SERIES OF RADIOGRAPHIC IMAGES Routine 09/16/2023 2:00 PM EST Generalized gingival recession Dental plaque from Last 3 Months or Most Recently Relevant to Health Maintenance Results * (ABNORMAL) TSH W/Reflex to FT4 (09/14/2025 10:00 AM EST) Only the most recent of2 resultswithin the time period is included. TSH reflex Free T4 7.92(H) 0.32 - 4.0 uIU/mL [facility] Blood Venous blood specimen / Unknown 09/14/2025 10:00 AM EST 09/14/2025 11:07 AM EST Hilda Talamantes MD LAB BLOOD ORDERABLES Final Result Performing Organization Address [facility] Co de Phone Number [facility] [address] [place] [phone] * T4, Free (09/14/2025 10:00 AM EST) Only the most recent of2 resultswithin the time period is included. Free T4 (Free Thyroxine) 1.01 0.71 - 1.85 ng/dL [facility] 09/14/2025 10:0 0 AM EST 09/14/2025 11:07 AM EST Hilda Talamantes MD LAB BLOOD ORDERABLES Final Result Performing Organization Address [facility] de Phone Number [facility] [address] [place] [phone] * Pathologist Review Of Peripheral Smear (07/31/2025 2:31 PM EDT) Pathologist Review - CBC SEE NOTE [facility] Comment:- Normocytic and nor mochromic anemia: consider anemia ofchronic disease, blood loss vs bone marrow disorder vs otheretiologies.Reviewed by Jackelyn Turcios MD Blood Venous blood specimen / Unknown 07/31/2025 2:31 PM EDT 07/31/2025 4:00 PM EDT Hilda Talamantes MD LAB BLOOD ORDERABLES Final Result Performing Organization Address [facility] Co de Phone Number [facility] [address] [place] [phone] * (ABNORMAL) CBC auto differential (07/31/2025 2:31 PM EDT) White Blood Count 4.6(L) 4.8 - 10.8 X10*3/uL [facility] Red Blood Count 4.22(L) 4.60 - 5.80 X10*6/uL [facility] Hemoglobin 12.9(L) 14.0 - 18.0 g/dl [facility] Hematocrit 36.6(L) 42.0 - 52.0 % [facility] Mean Corpuscular Volume 86.7 80.0 - 98.0 fL [facility] Mean Corpuscular Hemoglobin 30.6 27.0 - 33.0 pg [facility] Mean Corpuscular HGB Conc 35.2 31.0 - 36.0 g/dl [facility] Red Cell Distribution Width 13.6 11.0 - 16.0 % [facility] Platelet Count 228 160 - 400 X10*3/uL [facility] Mean Platelet Volume 9.2(L) 9.4 - 12.4 fL [facility] Neutrophils Percent Auto 62.3 45 - 73 % [facility] Imm Gran Pct Auto 0.9(H) 0.0 - 0.4 % [facility] Lymphocytes Percent Auto 26.6 20 - 40 % [facility] Monocytes Percent Auto 10.0 2 - 11 % [facility] Eosinophils Percent Auto 0.2 0 - 4 % [facility] Basophils Percent Auto 0.0 0 - 2 % [facility] NRBC Pct Auto 0.0 0.0 - 0.2 /100WBC [facility] Neutrophils Absolute Auto 2.9 2.0 - 8.3 x10*3/uL [facility] Imm Gran Abs Auto 0.04(H) 0.00 - 0.03 X10*3/uL [facility] Lymphocytes Absolute Auto 1.2 1.2 - 4.9 X10*3/uL [facility] Monocytes Absolute Auto 0.5 0.1 - 1.2 X10*3/uL [facility] Eosinophils Absolute Auto 0.0 0.0 - 0.4 X10*3/uL [facility] Basophils Absolute Auto 0.0 0.0 - 0.2 X10*3/uL [facility] NRBC Abs Auto 0.000 0.0 - 0.012 X10*3/uL [facility] Blood Venous blood specimen / Unknown 07/31/2025 2:31 PM EDT 07/31/2025 4:00 PM EDT us Hilda Talamantes MD LAB BLOOD ORDERABLES Final Result Performing Organization Address [facility]/ZIP Co de Phone Number [facility] [address] [place] [phone] * HIV-1/2 Antigen and Antibodies, Fourth Generation, with Reflexes (07/31/2025 2:31 PM EDT) HIV AB/AG Nonreactive Nonreactive [facility] Comment:HIV-1 p24 Ag and/or HIV-1/HIV-2 Ab not detected.A test result that is nonreactive does not exclude thepossibility of exposure to or infection with HIV-1 and/orHIV-2. Nonreactive results in this assay for individualswith prior exposure to HIV-1 and/or HIV-2 may be due toantigen and antibody levels that are below the limit ofdetection of this assay.The [employer] HIV Ag/Ab Combo assay result andsupplemental assay results should be interpreted inconjunction with the patient's clinical presentation,history and other laboratory results. If the results areinconsistent with clinical evidence, additional testing issuggested to confirm the result. Blood Venous blood specimen / Unknown 07/31/2025 2:31 PM EDT 07/31/2025 4:03 PM EDT us Hilda Talamantes MD LAB BLOOD ORDERABLES Final Result Performing Organization Address [facility]/ZIP Co de Phone Number [facility] [address] [place] [phone] * MADHURI Screen,IFA, with Reflex to Titer and Pattern (07/31/2025 2:31 PM EDT) Anti Nuclear Antibody Screen NEGATIVE NEGATIVE [facility] Comment:MADHURI IFA is a first l [...] clinicallysuspected inflammatory myopathies.AC-0: NegativeInternational Consensus on MADHURI Patterns(https://doi.org/10.1515/iueb-9824-2147)For additional information, please refer tohttp://education.Melon #usemelon/faq/RCU121(This link is being provided for informational/educational purposes only.)THIS TEST WAS PERFORMED AT:[employer] [place] [phone] MONIQUE MD MADHURI Titer TNP [facility] MADHURI Pattern [facility] MADHURI Titer 2 [facility] MADHURI Pattern 2 [facility] MADHURI TITER 3 [facility] MADHURI PATTERN 3 [facility] Blood Venous blood specimen / Unknown 07/31/2025 2:31 PM EDT 07/31/2025 4:03 PM EDT us Hilda Talamantes MD LAB BLOOD ORDERABLES Final Result [facility] [address] [place] [phone] * (ABNORMAL) Comprehensive Metabolic Panel (07/31/2025 2:31 PM EDT) Sodium 138 135 - 145 mmol/L [facility] Potassium 4.3 3.3 - 5.1 mmol/L [facility] Chloride 103 96 - 108 mmol/L [facility] Carbon Dioxide 29 22 - 29 mmol/L [facility] Anion Gap 10(L) 12 - 20 [facility] Urea Nitrogen (BUN) 16 9 - 16 mg/dL [facility] Creatinine, Serum 0.93 0.5 - 1.4 mg/dL [facility] Estimated Glomerular Filt Rate >60 [facility] Comment:Chronic Kidney Disea se: Estimated GFR < 60 mL/min/1.46f5Oxmhuq Kidney Disease: Estimated GFR < 15 mL/min/1.73m2 Glucose 106 60 - 115 mg/dL [facility] Calcium 9.5 8.4 - 10.2 mg/dL [facility] Bilirubin, Total 0.4 0.0 - 1.0 mg/dL [facility] Aspartate Amino Transferase 36 5 - 37 U/L [facility] Alanine Aminotransferase 32 0 - 40 U/L [facility] Total Protein 6.9 6.5 - 8.0 g/dL [facility] Albumin Level 4.6 3.5 - 5.0 g/dL [facility] Alkaline Phosphatase 47 39 - 117 U/L [facility] Blood Venous blood specimen / Unknown 07/31/2025 2:31 PM EDT 07/31/2025 4:03 PM EDT us Hilda Talamantes MD LAB BLOOD ORDERABLES Final Result [facility] [address] [place] [phone] * Lipid Panel, Standard (10/03/2024 1:22 PM EST) Triglycerides 138 <150 mg/dL [facility] Comment:Desirable Triglyceri de: less than 150 mg/dLBorderline High Triglyceride 150-199 mg/dLHigh Triglyceride: 200-499 mg/dLVery High Triglyceride: greater than or equal to 5OO mg/dL Cholesterol 147 <200 mg/dL [facility] Comment:Desirable Cholestero l: less than 200 mg/dLBorderline High Cholesterol: 200-239 mg/dLHigh Cholesterol: greater than 239 mg/dL LDL Cholesterol Calculated 71 <100 mg/dL [facility] Comment:Desirable LDL: less than 100 mg/dLNear Optimal/Above Optimal LDL: 110- 129 mg/dLBorderline High LDL: 130-159 mg/dLHigh LDL: 160-189 mg/dLVery High LDL: greater than or equal to 190 mg/dL HDL Cholesterol 49 >40 mg/dL [facility] Comment:Desirable HDL: great er than 40 mg/dL Note: This HDL assay may give artificially low results in patients with liver disease. Blood Venous blood specimen / Unknown 10/03/2024 1:22 PM EST 10/03/2024 4:52 PM EST Hilda Talamantes MD LAB BLOOD ORDERABLES Final Result [facility] [address] [place] [phone] * Colonoscopy (01/06/2024) Colonoscopy Normal Normal Narrative Brianna Hawk - 01/06/2024 Recommended 10 years. See see external hospital admission note on 01/06/2024 Historical Provider HEALTH MAINTENANCE Final Result from Last 3 Months or Most Recently Relevant to Health Maintenance Insurance [facility] STANDARD [place]IC[place] [phone] [facility] AD[facility] Care Teams Residential Pest Control Technician Relationship Specialty Start Date End Date Hilda Hill MD [address] [place] [phone] PCP - General Family Medicine 09/03/18
--- OUTSIDE RECORDS SUMMARY | 2025-10-24 09:21 | XMS_ITS | Encounter Summary ---
Author Organization [employer] Address [address] [facility] [address] [place] [address] Care Team Providers Care Industrial Court Magistrate Name Role Phone Hilda Hill MD Primary Care Provide r Encounter Details Date Type Department Care Team (Latest Contact Info) Description 04/19/2021 Abstract [facility] CONVERSIONS Dental, Provider, DDS Social [...] on filedocumented in this encounter Care Teams Industrial Court Magistrate Relationship Specialty Start Date End Date Hilda Hill MD [address] [place] [phone] PCP - General Family Medicine 09/03/18 documented as of this encounter
--- OUTSIDE RECORDS SUMMARY | 2025-10-24 09:21 | XMS_ITS | Encounter Summary ---
Author Organization [employer] Address [address] [facility] [address] [place] [address] Care Team Providers Care Customer Account Coordinator Name Role Phone Hilda Hill MD Primary Care Provide r Encounter Details Date Type Department Care Team (Late st Contact Info) Description 02/12/2023 Orders Only [facility] [address] [place] [address] Nadja Beatty LPN Social History Tobacco Use [...] Sensitivity Troponin I (10/25/2023 12:07 PM EST) TROPONIN I HIGH SENSITIVITY 2.7 <3.5 - 35.0 ng/L [facility] Comment:The Mckinnon high sens itivity Troponin-I results should beused in conjunction with other diagnostic information suchas ECG, clinical observations and information, and patientsymptoms to aid in the diagnosis of [place]. 10/25/2023 12:0 7 PM EST 10/25/2023 12:12 PM EST us Generic External Data Provider LAB BLOOD ORDERAB LES Final Result [facility] [address] [place] [phone] * (ABNORMAL) Basic Metabolic Panel (10/25/2023 12:07 PM EST) Pathologist [facility] Sodium 138 135 - 145 mmol/L [facility] Potassium 4.3 3.3 - 5.1 mmol/L [facility] Chloride 104 96 - 108 mmol/L [facility] Carbon Dioxide 26 22 - 29 mmol/L [facility] Anion Gap 12 12 - 20 [facility] Urea Nitrogen (BUN) 18(H) 9 - 16 mg/dL [facility] Creatinine, Serum 0.94 0.5 - 1.4 mg/dL [facility] Creatinine Clr Calc Pharmacy 67.0 [facility] Comment:eGFR (calculated fro m the MDRD study equation) and eCrCl(calculated from the Cockcroft-Gault equation) are based ondifferent parameters and may not yield comparable results.If eCrCl result is absurd, please check patient'sheight/weight. Estimated Glomerular Filt Rate >60 [facility] Comment:NOTE: For -Am erican individuals, multiply the result by 1.210.Chronic Kidney Disease: Estimated GFR < 60 mL/min/1.93l6Fhcbjw Kidney Disease: Estimated GFR < 15 mL/min/1.73m2 Glucose 134(H) 60 - 115 mg/dL [facility] Calcium 9.7 8.4 - 10.2 mg/dL [facility] 10/25/2023 12:0 7 PM EST 10/25/2023 12:12 PM EST us Generic External Data Provider LAB BLOOD ORDERAB LES Final Result [facility] [address] [place] [phone] * (ABNORMAL) CBC auto differential (10/25/2023 12:07 PM EST) White Blood Count 11.2(H) 4.8 - 10.8 X10*3/uL [facility] Red Blood Count 4.70 4.60 - 5.80 X10*6/uL [facility] Hemoglobin 13.7(L) 14.0 - 18.0 g/dl [facility] Hematocrit 40.0(L) 42.0 - 52.0 % [facility] Mean Corpuscular Volume 85.1 80.0 - 98.0 fL [facility] Mean Corpuscular Hemoglobin 29.1 27.0 - 33.0 pg [facility] Mean Corpuscular HGB Conc 34.3 31.0 - 36.0 g/dl [facility] Red Cell Distribution Width 13.6 11.0 - 16.0 % [facility] Platelet Count 234 160 - 400 X10*3/uL [facility] Mean Platelet Volume 9.0(L) 9.4 - 12.4 fL [facility] Neutrophils Percent Auto 79.8(H) 45 - 73 % [facility] Imm Gran Pct Auto 0.5(H) 0.0 - 0.4 % [facility] Lymphocytes Percent Auto 12.4(L) 20 - 40 % [facility] Monocytes Percent Auto 7.2 2 - 11 % [facility] Eosinophils Percent Auto 0.0 0 - 4 % [facility] Basophils Percent Auto 0.1 0 - 2 % [facility] NRBC Pct Auto 0.0 0.0 - 0.2 /100WBC [facility] Neutrophils Absolute Auto 8.9(H) 2.0 - 8.3 x10*3/uL [facility] Imm Gran Abs Auto 0.06(H) 0.00 - 0.03 X10*3/uL [facility] Lymphocytes Absolute Auto 1.4 1.2 - 4.9 X10*3/uL [facility] Monocytes Absolute Auto 0.8 0.1 - 1.2 X10*3/uL [facility] Eosinophils Absolute Auto 0.0 0.0 - 0.4 X10*3/uL [facility] Basophils Absolute Auto 0.0 0.0 - 0.2 X10*3/uL [facility] NRBC Abs Auto 0.000 0.0 - 0.012 X10*3/uL [facility] 10/25/2023 12:0 7 PM EST 10/25/2023 12:12 PM EST us Generic External Data Provider LAB BLOOD ORDERAB LES Final Result Performing Organization Address City/State/[facility] Co de Phone Number [facility] [address] [place] [address] [phone] documented in this encounter Visit Diagnoses Not on filedocumented in this encounter Care Teams Customer Account Coordinator Relationship Specialty Start Date End Date Hilda Hill MD [address] [place] [phone] PCP - General Family Medicine 09/03/18 documented as of this encounter
--- OUTSIDE RECORDS SUMMARY | 2025-10-24 09:21 | XMS_ITS | Encounter Summary ---
Author Organization [employer] Address [address] [place] [address] Care Team Providers Care Battery Charger Tester Name Role Phone Hilda Hill MD Primary Care Provide r Encounter Details Date Type Department Care Team (Latest Contact Info) Description 06/10/2019 Abstract [facility] CONVERSIONS Dental, Provider, DDS Social History [...] on filedocumented in this encounter Care Teams Battery Charger Tester Relationship Specialty Start Date End Date Hilda Hill MD [address] [place] [phone] PCP - General Family Medicine 09/03/18 documented as of this encounter
== END 2025-10-24 07:58 ==
LOC: HO.XRAY 07:57
PROVIDERS: PCP Internal Medicine; Visit Provider Nurse Practitioner Family
DX: R13.10 Dysphagia, unspecified (principal); D64.9 Anemia, unspecified
CPT/HCPCS: 74246

== ENCOUNTER → 2025-10-24 07:57 | Outpatient (BNV) | payer MEDICARE, MEDICAID, SELFPAY | PROVIDERS: PCP Internal Medicine; Visit Provider Radiology Diagnostic Radiology | DX: D64.9 Anemia, unspecified (principal); K21.9 Gastro-esophageal reflux disease without esophagitis; E16.4 Increased secretion of gastrin | CPT/HCPCS: 74246 ==